=== PATIENT | male | born 1955 | race Caucasian/White ===

== ENCOUNTER 2024-03-17 12:39 | Outpatient (AMB) | payer MEDICARE, OTHER, SELFPAY ==
--- NOTE | 2024-03-17 12:47 | A.OFFVIS_ITS ---
Vital Signs 03/17/24 13:10 Height 6 in Weight 162 lb 9 oz BMI 3174.5 BP 114/70 Blood Pressure Location Rt brachial Position Sitting Intake Visit Reasons: ENP-Involuntary movements/swallowing gustavo Intake Note: Patient presents for involuntary movememnts Allergies metoclopramide [From Reglan] Allergy (Unknown, Verified 03/17/24 13:12) Unknown Medication List - Last Reconciled 03/17/24 by Gia Cullen MD calcitriol 0.25 mcg PO DAILY famotidine 40 mg PO DAILY nqcvhz-oubqcoej-tukrsvu 36,000-114,000- 180,000 unit (Creon) 1 cap PO BID potassium citrate ER 15 mEq PO BID tamsulosin 0.4 mg PO DAILY HPI Comments Details: 68y/o male comes for evaluation of abnormal involuntary movements in his tongue and mouth . His noticed it about 1 year ago. she heard him make like a puffing noise and moves his lips. He can suppress it when he is aware of it.The movements are more when he is focusing on an activity ( like changing a bulb) The movements does not bother him .His also has noticed occasional - jerky movements usually when he falls asleep- for many years. He has h/o GERD - chronic . He sees GI for it.He was recently evaluated for dysphagia and change in speech -He was given speech and swallowing exercises. He has h/o learning disability and dyslexia. He also has h/o occasional migraines -2-3 /year with aura. He was born with 1 functioning kidney.He needed help with speech when young . He graduated college. 10years ago - he had heat stroke ? and has not been able to tolerate heat. [facility] Medical History Hx of migraines Celiac disease Kidney stones GERD (gastroesophageal reflux disease) Heartburn Surgical History H/O knee surgery Family History Father Cancer Mother Type 2 diabetes mellitus Social History Alcohol intake: never Patient Tobacco Use Status: Never used Tobacco Physical Exam Vital Signs: Last Vital Signs BP 114/70 03/17/24 13:10 BMI result Body Mass Index 3174.5 Const General: cooperative, healthy appearing, comfortable, no acute distress and well developed Nutritional Appearance: average body habitus Orientation/consciousness: patient oriented x3 Eyes Pupils: Equal, round and reactive pupils present Neuro Other: no abnormal movements noticed today General: patient oriented x3, gait normal, tone normal, moves all extremities and no focal motor deficits Cranial nerves: Yes Facial sensation intact/muscles of mastication intact, Yes Equal, round and reactive pupils present, Yes Bilaterally intact EOM present, Yes Nystagmus not present, Yes Normal facial strength present, Yes Midline tongue present, Yes Symmetric palate elevation present and Yes Ability to bilaterally elevate shoulders present Cognition (Neuro): normal cognition Gait exam (Neuro): Normal gait present Motor exam (neuro): 5/5 motor strength present throughout, no tremor noted and Normal motor muscle tone present throughout Deep tendon reflexes (DTR's): Right triceps reflex intensity grade: 2+, Left triceps reflex intensity grade: 2+, Rt Biceps (C5, C6): 2+, Left biceps reflex intensity grade: 2+, Right brachioradialis reflex intensity grade: 2+, Left brachioradialis reflex intensity grade: 2+, Right patellar reflex intensity grade: 2+ and Left patellar reflex intensity grade: 2+ Coordination: [id number] test normal Assessment & Plan Assessment & Plan (1) Abnormal involuntary movements: Comment: likely motor TICS Code(s): R25.9 - Unspecified abnormal involuntary movements Category: Medical Plan The movements are mild and intermittent . I will evaluate him with EEG He is doing better since he switched to famotidine. Home sleep test to r/o sleep apnea. Orders: Orders EEG electroencephalogram Today R25.9 - Unspecified abnormal involuntary movements RT home sleep study Today G47.10 - Hypersomnia, unspecified, R06.83 - Snoring Coding Level of Care Code New Pt Level 4 (73593) Complex EM visit Add On G2211 Diagnoses Abnormal involuntary movements R25.9
[2024-03-17 13:10] VITALS: BP 114/70; BMI 3174.5
--- OUTSIDE RECORDS SUMMARY | 2024-03-17 13:37 | XMS_ITS | Continuity of Care Document ---
Author Organization [facility] Address [address] [place], [place] Phone [phone] Care Team Providers Care Weld Lay Out Worker Name Role Phone Rolando Reese MD Care Team Information Pump Oiler Unavailable ANABELLA CHAUHAN M.D. Care Team Information Rec eiver Unavailable Rolando Reese MD Primary Care Physician Unavail able Problems Active Problems Provider Date Hip DXA scan result osteopenic Anabella Chauhan M.D. Onset: 10/16/2023 Malaise and fatigue Anabella Chauhan M.D. Onse t: 10/16/2023 Osteoporosis Anabella Chauhan M.D. Onset: 1 Social History Type Date Description Comments Sex Unknown Allergies and adverse reactions Active Allergies Criticality Reaction Severity Comments Date Aspirin Unable to assess criticality 12/16/2016 Reglan Unable to assess criticality 12/16/2016 Medications Active Medications SIG Qnty Indications Ordering Provider Date Calcitriol0.25mcg Capsules Take 1 Capsule By Mouth Every Day 90caps Anabella Chauhan M.D. 05/19/2023 Flomax0.4mg Capsules Unknown Calcium Citrate 250MG 1/d @ supper-> bid(04/2020)->1/d( 05/2023)->625ctc1( 2023) Unknown Famotidine 40mg @pm Unknown 0 Vit B12 @1000/d(12/2022is h) Unknown Creon 36,000x2(double dose) Unknown History Medications Calcitriol0.5mcg Capsules 1 by mouth every day Unknown - 05/19/2023 Prilosec OTCTablets 1 tab by mouth ev dinora Unknown - 07/[id number] tapering off Un known - 07/07/2023
--- OUTSIDE RECORDS SUMMARY | 2024-03-17 13:37 | XMS_ITS | Continuity of Care Document ---
Author Organization [facility] Address [address] [place] [address] Phone Care Team Providers Care Regional Director Name Role Phone Bjorn Daniels MD Unavailable Unavailable Allergies, Adverse Reactions, Alerts Substance Reaction Status Criticality METOCLOPRAMIDE HCL Active No Inform ation aspirin scratchy throat Active No Informati on Medications Medication Instructions Dosage Effective Dates (start - stop) Status Comments ACIPHEX (unknown strength) Not Available - Active calcium 500 mg Tab 2 tablets once daily 9 - Active Vitamin D-3 400 unit Cap - Active calcitriol 0.25 mcg Cap take 1 capsule (0.25MCG) by Oral route every day 0.25 MCG - Active Flomax 0.4 mg 24 hr Cap take 1 capsule (0.4MG) by Oral route every day 1/2 hour following the same meal each day 0.4 MG - Active Procedures Procedure Date Office/Outpatient Visit, [...] Copied on Encounter Office/Outpa tient Visit, Est [facility] , [address] [place], [place], [facility], tel:[phone] [facility] No Information 201 0 Jeremiah Milan. [address], [id number] , [place]. tel:[phone] Referring Provider: Bjorn Carolina, [address] [place], [address] . tel:[phone] Office/Outpa tient Visit, Est [facility] , [address] [place], [place], [facility], tel:[phone] [place] [address] Brent knee pain (chief complaint) No Information 8201 0 Jeremiah Milan. [address] [place], [place], [id number] , [place]. tel:[phone] Referring Provider: Bjorn Carolina, [address] [place], [address] . tel:[phone] [facility] , [address] [place], [place], [facility], tel:[phone] [facility] Left wrist fracture (chief complaint) No Information 200 9 Darin Pitts. [address] [place], [place], [id number] , [place]. tel:[phone] Referring Provider: Bjorn Carolina, [address], [place], [address] . tel:[phone] Office/Outpa tient Visit, Est [facility] , [address], [place], [facility], tel:[phone] [facility] Left wrist fracture (chief complaint) FX of ulna, distal, alone Sep-1 1200 9 Gilmer Lau. [address] [place], [place], [address] [place] [address] , . tel: [phone] Referring Provider: Bjorn Carolina, [address] , [place], [address] . tel:[phone] [facility] , [address] [place], [place], [facility], tel:[phone] [facility] Left wrist fracture (chief complaint) Pain in knee joint Sep-0 3-200 9 Darin Pitts. [address] [place], [place], [address] [place] [address] , . tel: [phone] Referring Provider: Bjorn Carolina, [address] , [place], [address] . tel:[phone] Office/Outpa tient Visit, [facility] , [address], [place], [facility], tel:[phone] [facility] Left wrist fracture (chief complaint) FX of ulna, distal, alone Aug- 9 Gilmer Lau. [address] , [place], [place], [address] [place] [address] , . tel: [phone] Referring Provider: Bjorn Carolina, [address] , [place], [address] . tel:[phone] [facility] , [address] [place], [place], [facility], tel:[phone] [place] [address] No Information Oct- 1 9 Jeremiah Milan. [address] [place], [place], [address] [place] [address] , . tel: [phone] Referring Provider: Bjorn Carolina, [address], [place], [address] . tel:[phone] [facility] , [address] , [place], [facility], tel:[phone] [facility] Left wrist fracture (chief complaint) No Information 0-200 9 Webster PT Gisselle. [address] , [place], [place], [id number] , [place]. tel: [phone] Referring Provider: Bjorn Carolina, [address] , [place], [address] . tel:[phone] [facility] , [address], [place], [facility], tel:[phone] [facility] Left wrist fracture (chief complaint) No Information 9-200 9 Hari Mendez. [address] , [place], [place], [id number] , . tel: [phone] Referring Provider: Bjorn Carolina, [address] , [place], [address] . tel:[phone] Office/Outpa tient Visit, Est [facility] , [address] , [place], [facility], tel:[phone] [facility] Left wrist fracture (chief complaint) FX of ulna, distal, aloneFX of ulna, distal, alone 200 9 Gilmer Lau. [address] , [place], [place], [id number] , [place]. tel: [phone] [facility] , [address] , [place], [facility], tel:[phone] [facility] Left knee pain (chief complaint) Follow-up of other surgery 3200 9 Hari Mendez. [address] , [place], [place], [id number] , [place]. tel: [phone] Referring Provider: Bjorn Carolina, [address] , [place], [address] . tel:[phone] [facility] , [address], [place], [facility], tel:[phone] [facility] Left knee pain (chief complaint) Stiffness in knee jointFollow-up of other surgery 9 Webster PT Gisselle. [address], [place], [place], [id number] , . tel: [phone] Referring Provider: Bjorn Carolina, [address], [place], [address] . tel:[phone] [facility] , [address], [place], [facility], tel:[phone] [facility] Left knee pain (chief complaint) Muscle weakness, generalizedStiffne ss in knee jointFollow-up of other surgery 9 Webster PT Gisselle. [address], [place], [place], [address] , . tel: [phone] Referring Provider: Bjorn Carolina, [address], [place], [place], [address] [place] [address] . tel:[phone] [facility] , [address], [place], [facility], tel:[phone] [place] [address] No Information 9 Jeremiah Milan. [address], [place], [place], [id number] , . tel: [phone] Referring Provider: Bjorn Carolina, [address], [place], [address] . tel:[phone] [facility] , [address], [place], [facility], tel:[phone] [facility] No Information 9 Jeremiah Milan. [address], [place], [place], [address] , . tel: [phone] Referring Provider: Bjorn Carolina, [address], [place], [address] . tel:[phone] [facility] , [address], [place], [facility], tel:[phone] [facility] No Information 9 Jeremiah Milan. [address], [place], [place], [id number] , [place]. tel: [phone] Referring Provider: Bjorn Carolina, [address], [place], [address] . tel:[phone] Pre-op Exam [facility] , [address], [place], [facility], [place] tel:[phone] [place] [address] No Information 9 Jeremiah Milan. [address], [place], [place], [id number] , [place]. tel: [phone] Referring Provider: Bjorn Carolina, [address], [place], [address] . tel:[phone] [facility] , [address], [place], [facility], tel:[phone] [place] [address] Medial meniscal tear, posterior horn, degenerative, chronic, kneeChondral lesion, osteolysis 9 Jeremiah Milan. [address], [place], [place], [id number] , [place]. tel: [phone] Referring Provider: Bjorn Carolina, [address], [place], [address] . tel:[phone] [facility] , [address], [place], [facility], tel:[phone] [place] [address] No Information 9 Jeremiah Milan. [address], [place], [place], [id number] , [place]. tel: [phone] Referring Provider: Bjorn Carolina, [address], [place], [address] . tel:[phone] Office/Outpa tient Visit, Est [facility] , [address], [place], [facility], [place] tel:[phone] [place] [address] Left knee pain (chief complaint) No Information 9 Jeremiah Milan. [address], [place], [place], [id number] , . tel:[phone] [facility], [address], [place], [address], [place] tel:[phone] [facility] No Information 0-200 9 Jeremiah Milan. [address], [place], [place], [id number] , . tel: [phone] Family History Family Member Type Diagnosis Age At Onset Problem (finding) Family history of Anest hetic problems Payers Payer name Insurance type Covered republican ID Authoriza tion(s) [employer] E[employer] Open Option [place] [id number] Social History Type Description Quantity Date Captured [...]
--- OUTSIDE RECORDS SUMMARY | 2024-03-17 13:37 | XMS_ITS | Data Portability ---
Author Organization [place] [facility] Address [address] [address] Care Team Providers Care Opener Verifier [employer] Name Role Phone CARMEN MONTALVO Primary Care Provider Assessment Encounter Date Assessment Date Assessment LastModified by Organization Details LastModified Time 09/24/2023 09/24/2023 Fiberoptic laryngoscopy was completed today. He does have a moderate amount of clear thin mucus, but I see no pooling or overt aspiration. His vocal cords are mobile bilaterally, and the prior erythema has resolved. His vocal cords are thin, more so on the left than the right, causing a small gap with phonation. We discussed the wet quality to his voice is related to the mucus and his dysphagia issues. 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 He will discuss this with his speech pathologist. I will order the updated barium swallow study. If his voice does not improve we can consider referral for stroboscopy. [email or web address] Not available 09/24/2023 12:22:26 Plan of Treatment Reminders Order Date Submit Date Provider Last Modified By Organization Details Last Modified Time Details Appointments None recorded. Lab None recorded. Referral None recorded. Procedures None recorded. Surgeries None recorded. Imaging [place], modified barium swallow study 2023 024 [email or web address], [address] [place], [address], 16:49:09 Medication Orders None recorded. Patient TargetsNo targets recorded. Patient InstructionsNo instructions recorded. Reason for Referral None Reported. Problems Name Problem SNOMED Code Status Onset Date Resolution Date Notes Provider Name and Address Organization Details Recorded Time Gastroeso phageal reflux disease without esophagit is 303953365 Active 2017 Gastro-eso phageal reflux disease without esophagiti s; Note: Date Diagnosed: 12/23/2017 9:56 AM (K21.9) Not Available [facility] 4 03:33:08 Dysphonia 91415120 Active 2017 Other voice and resonance disorders; Note: Date Diagnosed: 12/23/2017 9:56 AM (R49.8) Not Available [facility] 4 03:33:08 Finding of resonance of voice 661398382 Active 2017 Other voice and resonance disorders; Note: Date Diagnosed: 12/23/2017 9:56 AM (R49.8) Not Available [facility] 4 03:33:08 Dysphagia 28709839 Active 2023 SUKHDEEP HAMLIN PA-C [address] [place] [address],[place] [address], [place], [address] , [facility] - [facility] 4 12:19:47 Problem Notes None recorded. Procedures Surgical History Date Name Laterality Status Provider Name and Address Organization Details Recorded Time 09/24/19 24 Fiberoptic Laryngoscopy (Comprehensive) completed SUKHDEEP HAMLIN PA-C [address] [place] [address],[place] [address], [place], [address], [facility] 09/24/2023 12:19:31 Imaging Results None recorded. Procedure Notes None recorded. Medical Equipment None Reported. Allergies Allergen ID Allergen Name Allergen Category Reaction Reaction Severity Criticality Documentation Date Start Date Code Code System Note Provider Name and Address Organization Details Recorded Time 627501 aspirin medicatio n Not available Not available Not available 09/24/2023 1191 RxNorm Judi mcgraw [place] - [facility] 4 11:05:42 380949 Reglan medicatio n Not available Not available Not available 09/24/2023 9230 RxNorm Judi Suraj mcgraw [place] [facility] 4 11:05:50 Medications Name Sig Start Date Stop Date Status Note LastModified by Organization Details LastModified Time phenazopy ridine 200 mg tablet TAKE 1 TABLET BY MOUTH 3 TIMES A DAY FOR 7 DAYS 09/23 completed Not Available Not Available Not Available famotidin e 40 mg tablet TAKE 1 TABLET BY MOUTH EVERY DAY AT BEDTIME FOR 30 DAYS active Not Available Not Available No t Available sulfameth oxazole 800 mg-trimet hoprim 160 mg tablet TAKE 1 TABLET BY MOUTH TWICE A DAY FOR 3 DAYS 09/23 completed Not Available Not Available Not Available tamsulosi n 0.4 mg capsule TAKE 1 CAPSULE BY MOUTH EVERY DAY active Not Available Not Available No t Available calcitrio l 0.5 mcg capsule TAKE 1 CAPSULE BY MOUTH EVERY DAY 09/23 completed Not Available Not Available Not Available betametha sone dipropion ate 0.05 % topical cream PLEASE SEE ATTACHED FOR DETAILED DIRECTIO NS 09/23 completed Not Available Not Available Not Available omeprazol e 20 mg capsule,d elayed release TAKE 1 CAPSULE BY MOUTH TWICE A DAY 09/23 completed Not Available Not Available Not Available calcitrio l 0.25 mcg capsule TAKE 1 CAPSULE BY MOUTH EVERY DAY active Not Available Not Available No t Available Calcium-5 00 500 mg (as calcium carbonate 1,250 mg) chewable tablet 2017 active Medicati on ID: [id number] B rand Name: Calcium 500 Send Method: E-Prescr ibed Sub s Allowed: subs OK Medic ationGen ericName : Calcium 500 Not Available Not Available Not Available Creon 36,000 unit-114, 000 unit-180, 000 unit capsule,d elayed release TAKE 2 CAPSULES WITH MEALS AND 1 WITH SNACKS ORALLY THREE - FIVE TIMES A DAY 30 DAYS active Not Available Not Available No t Available Vitals Date Recorded Body height Body mass index (BMI) Body weight Provider Name and Address Organization Details Last Updated DateTime 09/24/2023 182.88 cm 21 kg/m2 00092.82 g Judi Harry [facility] 09/24/2023 11:05:33 Social History None recorded. Functional Status None recorded. Mental Status None recorded. Family History Nothing Reported. Medical History No medical history recorded. Past Encounters Encounter ID Performer Location Encounter Start Date Encounter Closed Date Diagnosis/Indication Diagnosis SNOMED-CT Code Diagnosis ICD10 Code [id number] MARYLU CHOI MD [facility] on [address] [place] [address] 09/24/2023 10:48:51 09/25/2023 16:49:09 Dysphonia 54422153 R49.8 Gastroesop hageal reflux disease without esophagitis 023866615 K21.9 Dysphagia 85728152 R13.1 0 Health Concerns Section Related Observation LastModified by Organization Detai ls LastModified Time None Recorded Concern Status LastModified by Organization Details LastModified Time None Recorded Advance Directives Directive None Recorded Payers Encounter Date Sequence Insurance Name Policy Number Policy Ferreira Covered Member ID Ferreira Member ID Guarantor Name 09/24/2023 2 [facility] [id number] Vladimir Flores [id number] Vladimir Flores 09/24/2023 1 MEDICARE B-HI: [facility] [employer] Vladimir Flores III [id number] Vladimir Flores Notes Date Note Type Note Provider Name and Address Organization Details Recorded Time 09/24/2023 text/html 67 year old male with a history of dysphagia, voice changes and GERD. Here today with his , Annemarie, for follow up.He was seen in April for dysphagia, modified barium swallow was ordered which showed aspiration with thin liquids and residual in the vallecula. 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 He has been undergoing speech therapy and feels he is improving. His swallow is not as effortful or loud and he has not been having choking episodes. He did speak to 's team about the UES dysfunction and the CP bar, which were felt to be a result of his prior Lenin procedure and required no further intervention. For his reflux, he is now on Pepcid only at bedtime and this is working well for him. His speech pathologist wanted him to return for a laryngeal exam. His swallow is improving, but he still has voice changes. She would also like to do another modified barium swallow. MARYLU CHOI MD [address] [place] [address], [place], [address], [facility] - [facility] 09/25/2023 12:48:46
== END 2024-03-17 13:54 | disposition home or self-care (01) ==
PROVIDERS: Visit Provider Psychiatry & Neurology Neurology
DX: R25.9 Unspecified abnormal involuntary movements (principal)
CPT/HCPCS: 99204; G2211

== ENCOUNTER → 2024-03-17 12:39 | Outpatient (BNVA) | payer MEDICARE, OTHER, SELFPAY | PROVIDERS: Visit Provider Psychiatry & Neurology Neurology | DX: R25.9 Unspecified abnormal involuntary movements (principal); G47.10 Hypersomnia, unspecified; R06.83 Snoring | CPT/HCPCS: 99202 ==

== ENCOUNTER → 2024-04-25 13:59 | Outpatient (REF) | payer MEDICARE, OTHER, SELFPAY ==
--- OUTSIDE RECORDS SUMMARY | 2024-04-25 15:08 | XMS_ITS | Encounter Summary ---
Author Organization [facility], Address [address] [place] [address] Phone Care Team Providers Care Bearing Machine Operator Name Role Phone Mary Ann Marshall MD Primary Care Provider [phone] Encounter Details Date Type Department Care Team (Late st Contact Info) Description 11/10/2023 Documentation Only [facility] [address] [place] [address] Alice Andujar [address] [place] [phone] Social History Tobacco Use Types Packs/Day Years Used Date Smoking Tobacco: Never Assessed Sex and Gender Information Value Date Recorded Sex Assigned at Not on file Legal Sex Male 8:30 AM EDT Gender Identity Not on file Sexual Orientation Not on file documented as of this encounter Plan of Treatment Upcoming Encounters Date Type Department Care Team (Late st Contact Info) Description 08/25/2024 10:30 AM EDT Office Visit [facility] [address] [place] [phone] Ermias Shine MD [address] [place] [address] [place] [address] documented as of this encounter Visit Diagnoses Not on filedocumented in this encounter Care Teams Bearing Machine Operator Relationship Specialty Start Date End Date Mary Ann Mrashall MD [address] [place] [address], [address] [place] [address] PCP - General Internal Medicine 08/26/23 documented as of this encounter
--- OUTSIDE RECORDS SUMMARY | 2024-04-25 15:08 | XMS_ITS | Encounter Summary ---
Author Organization [facility], Address [address] [place] [address] Phone Care Team Providers Care Cnc Maintenance Mechanic Name Role Phone Mary Ann Marshall MD Primary Care Provider [phone] Encounter Details Date Type Department Care Team (Late st Contact Info) Description 08/26/2023 Documentation Only [facility] [address] [place] [address] [place], [place] [address] [place] [phone] Social History Tobacco Use Types Packs/Day Years [...] Visit [facility] [address] [place] [phone] Ermias Shine MD [address] [place] [address] [place] [address] documented as of this encounter Visit Diagnoses Not on filedocumented in this encounter Care Teams Cnc Maintenance Mechanic Relationship Specialty Start Date End Date Mary Ann Marshall MD [address] [place], [place] [address], [place] [address] PCP - General Internal Medicine 08/26/23 documented as of this encounter
--- OUTSIDE RECORDS SUMMARY | 2024-04-25 15:08 | XMS_ITS | Clinical Summary ---
Author Organization [facility] Address [address] [place] [address] Phone Care Team Providers Care Glass Glazier Name Role Phone Mary Ann Marshall MD Primary Care Provider [phone] Allergies Active Allergy Reactions Criticality Noted Date Comments Aspirin 11/12/2022 Other Reaction(s): non buffered Gluten Meal 03/31/2017 Metoclopramide 03/31/2017 Medications tamsulosin (FLOMAX) 0.4 MG 24 hr capsule Take 0.4 mg by mouth 1 (one) time each day Active famotidine (PEPCID) 40 MG tablet Take 40 mg by mouth 1 (one) time each day Active calcitriol (ROCALTROL) 0.25 MCG capsule Take 0.25 mcg by mouth 1 (one) time each day Active Active Problems Problem Noted Date Diagnosed Date Renal stone 08/27/2023 Vitamin D deficiency 08/27/2023 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 Encounters Date Type Department Care Team Description 02/24/2024 4:15 PM EST Office Visit [facility] [place], - [address] [place] [address] Ermias Shine MD Renal stone (Primary Dx) 02/23/2024 Documentation Only [facility] [address] [place] [address] Patricia Forbes 02/02/2024 Documentation Only [facility] [place], [address] [place] [address] Patricia Forbes from Last 3 Months Immunizations Name Administration Dates Next Due Influenza, Quadrivalent, Pre servative Free 01/14/2020,12/23/2018,12/16/2017,03/31 Influenza, Quadrivalent, Wit h Preservative 02/17/2014 Influenza, Unspecified 01/09/2023,2021,12/18/2020,03/27,03/15/2013 Pfizer SARS-COV-2 01/25/2021,07/07/2020,06/17/19 21 Pneumococcal Conjugate 13-Valent 12/18/2020 Pneumococcal Polysaccharide 11/12/2022 Respiratory Syncytial Virus (Rsv), Unspecified 12/14/2022 SARS-CoV-2, Unspecified 08/01/2022 Shingrix 08/30/2019,05/02/2019 Tdap 03/31/2017 Social History Tobacco Use Types Packs/Day Years Used Date Smoking Tobacco: Never Assessed Sex and Gender Information Value Date Recorded Sex Assigned at Not on file Legal Sex Male 8:30 AM EDT Gender Identity Not on file Sexual Orientation Not on file Plan of Treatment Upcoming Encounters Date Type Department Care Team (Late st Contact Info) Description 08/25/2024 10:30 AM EDT Office Visit [facility] [place], [address] [place] [address] Ermias Shine MD [address] [place] [address] [place] [address] Health Maintenance Due Date Last Done Comments Colorectal Cancer Screening: Annual FOBT 12/01/2004 Colorectal Cancer Screening: Colonoscopy 12/01/2004 Colorectal Cancer Screening: Sigmoidoscopy 12/01/2004 Influenza Vaccine (#1) 2023 3, 12/05/2021, 12/18/2020, Additional history exists Pneumococcal Vaccine: 65+ Years Completed 11/12/2022, 12/18/2020 Hepatitis B Vaccine Aged Out No longe r eligible based on patient's age to complete this topic Insurance MEDICARE [facility] Care Teams Glass Glazier Relationship Specialty Start Date End Date Mary nAn Marshall MD [address] [place] [address], [address] [place] [address] PCP - General Internal Medicine 08/26/23
--- OUTSIDE RECORDS SUMMARY | 2024-04-25 15:08 | XMS_ITS | Continuity of Care Document ---
Author Organization [facility] Address [address] [place] [address] Phone Care Team Providers Care Paving Supervisor Name Role Phone Bjorn Daniels MD Unavailable [...] Copied on Encounter Office/Outpa tient Visit, Est [facility] , [address] [place], [place], [facility], tel:[phone] [facility] No Information 201 0 Jeremiah Milan. [address], [id number] , [place]. tel:[phone] Referring Provider: Bjorn Carolina, [address] [place], [address] . tel:[phone] Office/Outpa tient Visit, Est [facility] , [address] [place], [place], [facility], tel:[phone] [place] [address] Brent knee pain (chief complaint) No Information 8201 0 Jeremiah Milan. [address] [place], [place], [id number] , [place]. tel:[phone] Referring Provider: Bjorn Carolina, [address] [place], [address] . tel:[phone] [facility] , [address] [place], [facility], tel:[phone] [facility] Left wrist fracture (chief complaint) No Information 200 9 Darin Pitts. [address] [place], [place], [id number] , [place]. tel:[phone] Referring Provider: Bjorn Carolina, [address], [place], [address] . tel:[phone] Office/Outpa tient Visit, Est [facility] , [address], [place], [place], [facility], tel:[phone] [facility] Left wrist fracture (chief complaint) FX of ulna, distal, alone Sep-1 1200 9 Gilmer Lau. [address] [place], [place], [address] [place] [address] , . tel: [phone] Referring Provider: Bjorn Carolina, [address] , [place], [address] . tel:[phone] [facility] , [address] [place], [facility], tel:[phone] [facility] Left wrist fracture (chief complaint) Pain in knee joint Sep-0 3-200 9 Darin Pitts. [address] [place], [place], [address] [place] [address] , . tel: [phone] Referring Provider: Bjorn Carolina, [address] , [place], [address] . tel:[phone] Office/Outpa tient Visit, [facility] , [address], [place], [facility], tel:[phone] [facility] Left wrist fracture (chief complaint) FX of ulna, distal, alone Aug- 9 Gilmer Lau. [address] , [place], [address] [place] [address] , . tel: [phone] Referring Provider: Bjorn Carolina, [address] , [place], [address] . tel:[phone] [facility] , [address] [place], [facility], tel:[phone] [place] [address] No Information Oct- 1 9 Jeremiah Milan. [address] [place], [place], [address] [place] [address] , . tel: [phone] Referring Provider: Bjorn Carolina, [address], [place], [address] . tel:[phone] [facility] , [address] , [place], [facility], tel:[phone] [facility] Left wrist fracture (chief complaint) No Information 0-200 9 Webster PT Gisselle. [address] , [place], [place], [id number] , [place]. tel: [phone] Referring Provider: Bjorn Carolina, [address] , [place], [address] . tel:[phone] [facility] , [address], [place], [facility], tel:[phone] [facility] Left wrist fracture (chief complaint) No Information 9-200 9 Hari Mendez. [address] , [place], [place], [id number] , . tel: [phone] Referring Provider: Bjorn Carolina, [address] , [place], [address] . tel:[phone] Office/Outpa tient Visit, Est [facility] , [address] , [place], [facility], tel:[phone] [facility] Left wrist fracture (chief complaint) FX of ulna, distal, aloneFX of ulna, distal, alone 200 9 Gilmer Lau. [address] , [place], [place], [id number] , [place]. tel: [phone] [facility] , [address] , [place], [facility], tel:[phone] [facility] Left knee pain (chief complaint) Follow-up of other surgery 3200 9 Hari Mendez. [address] , [place], [place], [id number] , [place]. tel: [phone] Referring Provider: Bjorn Carolina, [address] , [place], [address] . tel:[phone] [facility] , [address], [place], [facility], tel:[phone] [facility] Left knee pain (chief complaint) Stiffness in knee jointFollow-up of other surgery 9 Webster PT Gisselle. [address], [place], [place], [id number] , . tel: [phone] Referring Provider: Bjorn Carolina, [address], [place], [address] . tel:[phone] [facility] , [address], [place], [facility], tel:[phone] [facility] Left knee pain (chief complaint) Muscle weakness, generalizedStiffne ss in knee jointFollow-up of other surgery 9 Webster PT Gisselle. [address], [place], [place], [address] , . tel: [phone] Referring Provider: Bjorn Carolina, [address], [place], [address] [place] [address] . tel:[phone] [facility] , [address], [place], [facility], tel:[phone] [place] [address] No Information 9 Jeremiah Milan. [address], [place], [place], [id number] , . tel: [phone] Referring Provider: Bjorn Carolina, [address], [place], [address] . tel:[phone] [facility] , [address], [place], [facility], tel:[phone] [facility] No Information 9 Jeremiah Milan. [address], [place], [place], [id number] , . tel: [phone] Referring Provider: Bjorn Carolina, [address], [place], [address] . tel:[phone] [facility] , [address], [place], [facility], tel:[phone] [facility] No Information 9 Jeremiah Milan. [address], [place], [place], [id number] , [place]. tel: [phone] Referring Provider: Bjorn Carolina, [address], [place], [address] . tel:[phone] Pre-op Exam [facility] , [address], [place], [facility], [place] tel:[phone] [place] [address] No Information 9 Jeremiah Milan. [address], [place], [id number] , [place]. tel: [phone] Referring Provider: Bjorn Carolina, [address], [place], [address] . tel:[phone] [facility] , [address], [place], [facility], tel:[phone] [place] [address] Medial meniscal tear, posterior horn, degenerative, chronic, kneeChondral lesion, osteolysis 9 Jeremiah Milan. [address], [place], [place], [address] , [place]. tel: [phone] Referring Provider: Bjorn Carolina, [address], [place], [address] . tel:[phone] [facility] , [address], [place], [facility], tel:[phone] [place] [address] No Information 9 Jeremiah Milan. [address], [place], [place], [address] , [place]. tel: [phone] Referring Provider: Bjorn Carolina, [address], [place], [address] . tel:[phone] Office/Outpa tient Visit, Est [facility] , [address], [place], [facility], [place] tel:[phone] [place] [address] Left knee pain (chief complaint) No Information 9 Jeremiah Milan. [address], [place], [place], [address] , . tel:[phone] [facility], [address], [place], [address], [place] tel:[phone] [facility] No Information 0-200 9 Jeremiah Milan. [address], [place], [place], [id number] , . tel: [phone] Family History Family Member Type Diagnosis Age At Onset Problem (finding) Family history of Anest hetic problems Payers Payer name Insurance type Covered green party ID Authoriza tion(s) [place] EPO Open Option [place] [id number] Social History Type Description Quantity Date Captured [...]
--- OUTSIDE RECORDS SUMMARY | 2024-04-25 15:08 | XMS_ITS | Data Portability ---
Author Organization [place] - [facility] Address [address] [address] Care Team Providers Care Drywall Finisher Foreman Name Role Phone CARMEN MONTALVO Primary Care [...] modified barium swallow study 2023 024 darrellettRobby [facility], [address] [place], [address], 16:49:09 Medication Orders None recorded. Patient TargetsNo targets recorded. Patient InstructionsNo instructions recorded. Reason for Referral None Reported. Problems Name Problem SNOMED Code Status Onset Date Resolution Date Notes Provider Name and Address Organization Details Recorded Time Gastroeso phageal reflux disease without esophagit is 745688285 Active 2017 Gastro-eso phageal reflux disease without esophagiti s; Note: Date Diagnosed: 12/23/2017 9:56 AM (K21.9) Not Available Count includes the [facility] 4 03:33:08 Dysphonia 94636315 Active 2017 Other voice and resonance disorders; Note: Date Diagnosed: 12/23/2017 9:56 AM (R49.8) Not Available Count includes the [facility] 4 03:33:08 Finding of resonance of voice 032126440 Active 2017 Other voice and resonance disorders; Note: Date Diagnosed: 12/23/2017 9:56 AM (R49.8) Not Available Count includes the [facility] 4 03:33:08 Dysphagia 94562107 Active 2023 SUKHDEEP HAMLIN PA-C [address] [place] [address],[place] [address], [place], [address] , [facility] - [facility] 4 12:19:47 Problem Notes None recorded. Procedures Surgical History Date Name Laterality Status Provider Name and Address Organization Details Recorded Time 09/24/19 24 Fiberoptic Laryngoscopy (Comprehensive) completed SUKHDEEP HAMLIN PA-C [address] [place] [address],[place] [address], [place], [address], [facility] 09/24/2023 12:19:31 Imaging Results None recorded. Procedure Notes None recorded. Medical Equipment None Reported. Allergies Allergen ID Allergen Name Allergen Category Reaction Reaction Severity Criticality Documentation Date Start Date Code Code System Note Provider Name and Address Organization Details Recorded Time 612396 aspirin medicatio n Not available Not available Not available 09/24/2023 1191 RxNorm Judi mcgraw [place] - [facility] 4 11:05:42 392470 Reglan medicatio n Not available Not available Not available 09/24/2023 9230 RxNorm Judi Suraj mcgraw [place] [facility] 4 11:05:50 Medications Name Sig Start Date [...] chewable tablet 2017 active Medicati on ID: [id number] B rand Name: Calcium 500 Send Method: [...] Updated DateTime 09/24/2023 182.88 cm 21 kg/m2 73907.82 g Judi Harry [facility] 09/24/2023 11:05:33 Social History None recorded. Functional Status None recorded. Mental Status None recorded. Family History Nothing Reported. Medical History No medical history recorded. Past Encounters Encounter ID Performer Location Encounter Start Date Encounter Closed Date Diagnosis/Indication Diagnosis SNOMED-CT Code Diagnosis ICD10 Code Diagnosis Note [id number] MARYLU CHOI MD [facility] on [address] [facility] SHAE ARELLANO [address] 09/24/2023 10:48:51 09/25/2023 16:49:09 Dysphonia 43852331 R49.8 Gastroesop hageal reflux disease without esophagitis 550219734 K21.9 Dysphagia 02460178 R13.1 0 Health Concerns Section Related Observation LastModified by Organization Detai ls LastModified Time None Recorded Concern Status LastModified by Organization Details LastModified Time None Recorded Advance Directives Directive None Recorded Payers Encounter Date Sequence Insurance Name Policy Number Policy Ferreira Covered Member ID Ferreira Member ID Guarantor Name 09/24/2023 2 [facility] IN[facility]MN[facility] [id number] Vladimir Flores [id number] Vladimir Flores 09/24/2023 1 MEDICARE B-[place]: [facility] [employer] Vladimir Flores III [id number] Vladimir Flores Notes Date Note Type [...] another modified barium swallow. MARYLU CHOI MD [address] [place] [address], [place], [address], [facility] - [facility] 09/25/2023 12:48:46
--- OUTSIDE RECORDS SUMMARY | 2024-04-25 15:08 | XMS_ITS | Encounter Summary ---
Author Organization [facility] [place], Address [address] [place] [address] Phone Care Team Providers Care Sales Attendant Building Materials Name Role Phone Mary Ann Marshall MD Primary Care Provider +1- [phone] Encounter Details Date Type Department Care Team (Late st Contact Info) Description 09/24/2023 Documentation Only [facility] [address] [place] [address] Patricia Forbes [address] [place] [address] [phone] Social History Tobacco Use Types Packs/Day Years [...] Visit [facility] [place] [address] Neel EDWARD [address] [place] [phone] Ermias Shine MD [address] [place] [address] [place] [address] documented as of this encounter Visit Diagnoses Not on filedocumented in this encounter Care Teams Sales Attendant Building Materials Relationship Specialty Start Date End Date Mary Ann Marshall MD [address] [place] [address], [address] [place] [address] PCP - General Internal Medicine 08/26/23 documented as of this encounter
--- OUTSIDE RECORDS SUMMARY | 2024-04-25 15:08 | XMS_ITS | Encounter Summary ---
Author Organization [facility] [place], Address [address] [place] [address] Phone Care Team Providers Care Fiber Product Cutting Machine Operator Name Role Phone Mary Ann Marshall MD Primary Care Provider +1- [phone] Encounter Details Date Type Department Care Team (Late st Contact Info) Description 02/23/2024 Documentation Only [facility] [address] [place] [address] Patricia Forbes [address] [place] [address] [phone] Social History Tobacco Use Types Packs/Day Years [...] Visit [facility] [address] [address] Neel EDWARD [address] [place] [phone] Ermias Shine MD [address] [place] [address] [place] [address] documented as of this encounter Visit Diagnoses Not on filedocumented in this encounter Care Teams Fiber Product Cutting Machine Operator Relationship Specialty Start Date End Date Mary Ann Marshall MD [address] [place] [address], [address] [place] [address] PCP - General Internal Medicine 08/26/23 documented as of this encounter
--- OUTSIDE RECORDS SUMMARY | 2024-04-25 15:08 | XMS_ITS | Encounter Summary ---
Author Organization [facility] [place], Address [address] [place] [address] Phone Care Team Providers Care Transportation Security Screener Name Role Phone Mary Ann Marshall MD Primary Care Provider +1- [phone] Encounter Details Date Type Department Care Team (Late st Contact Info) Description 09/22/2023 Documentation Only [facility] [address] [place] [address] Patricia Forbes [address] [place] [phone] Social History Tobacco Use Types Packs/Day Years [...] Visit [facility] [place] [address] Neel EDWARD [address] [place] [phone] Ermias Shine MD [address] [place] [address] [place] [address] documented as of this encounter Visit Diagnoses Not on filedocumented in this encounter Care Teams Transportation Security Screener Relationship Specialty Start Date End Date Mary Ann Marshall MD [address] [place] [address], [address] [place] [address] PCP - General Internal Medicine 08/26/23 documented as of this encounter
--- OUTSIDE RECORDS SUMMARY | 2024-04-25 15:08 | XMS_ITS | Encounter Summary ---
Author Organization [facility] [place], Address [address] [place] [address] Phone Care Team Providers Care Sonar Watchstander Name Role Phone Mary Ann Marshall MD Primary Care Provider +1- [phone] Encounter Details Date Type Department Care Team (Late st Contact Info) Description 02/02/2024 Documentation Only [facility] [address] [place] [address] Patricia Forbes [address] [place] [address] [phone] Social History Tobacco Use Types Packs/Day Years [...] Visit [facility] [address] [place] [address] Ermias Shine MD [address] [facility] [place] [phone] documented as of this encounter Visit Diagnoses Not on filedocumented in this encounter Care Teams Sonar Watchstander Relationship Specialty Start Date End Date Mary Ann Marshall MD [address] [place] [address], [address] [place] [address] PCP - General Internal Medicine 08/26/23 documented as of this encounter
--- OUTSIDE RECORDS SUMMARY | 2024-04-25 15:08 | XMS_ITS | Encounter Summary ---
Author Organization [facility] [place], Address [address] [place] [address] Phone Care Team Providers Care Engineering Team Supervisor Name Role Phone Mary Ann Marshall MD Primary Care Provider +1- [phone] Encounter Details Date Type Department Care Team (Late st Contact Info) Description 09/22/2023 Documentation Only [facility] [address] [place] [address] Patricia Forbes [address] [place] [phone] Social History Tobacco Use Types Packs/Day [...] Visit [facility] [place] [address] Neel EDWARD [address] [place] [phone] Ermias Shine MD [address] [place] [address] [place] [address] documented as of this encounter Visit Diagnoses Not on filedocumented in this encounter Care Teams Engineering Team Supervisor Relationship Specialty Start Date End Date Mary Ann Marshall MD [address] [place] [address], 2[address] [place] [address] PCP - General Internal Medicine 08/26/23 documented as of this encounter
--- OUTSIDE RECORDS SUMMARY | 2024-04-25 15:08 | XMS_ITS | Encounter Summary ---
Author Organization [facility] [place], Address [address] [place] [address] Phone Care Team Providers Care Feeder Tender Name Role Phone Mary Ann Marshall MD Primary Care Provider +1- [phone] Encounter Details Date Type Department Care Team (Late st Contact Info) Description 09/15/2023 Documentation Only [facility] [address] [place] [address] Patricia Forbes [address] [place] [phone] Social History Tobacco Use Types Packs/Day [...] Of [facility] [address] Neel EDWARD [address] [place] [phone] Ermias Shine MD [address] [place] [address] [place] [address] documented as of this encounter Visit Diagnoses Not on filedocumented in this encounter Care Teams Feeder Tender Relationship Specialty Start Date End Date Mary Ann Marshall MD [address] [place] [address], [address] [place] [address] PCP - General Internal Medicine 08/26/23 documented as of this encounter
--- OUTSIDE RECORDS SUMMARY | 2024-04-25 15:08 | XMS_ITS | Encounter Summary ---
Author Organization [facility] [place], Address [address] [place] [address] Phone Care Team Providers Care Retort Engineer Name Role Phone Mary Ann Marshall MD Primary Care Provider +1- [phone] Encounter Details Date Type Department Care Team (Late st Contact Info) Description 09/11/2023 Documentation Only [facility] [address] [place] [address] [place], [place] [address] [place] [phone] Social History Tobacco Use Types Packs/Day Years [...] Visit [facility] [place] [address] Neel EDWARD [address] [place] [phone] Ermias Shine MD [address] [place] [address] [place] [address] documented as of this encounter Visit Diagnoses Not on filedocumented in this encounter Care Teams Retort Engineer Relationship Specialty Start Date End Date Mary Ann Marshall MD [address] [place], [place] [address], [place] [address] PCP - General Internal Medicine 08/26/23 documented as of this encounter
== END ==
LOC: HO.SL 13:59
PROVIDERS: PCP Internal Medicine; Visit Provider Psychiatry & Neurology Neurology
DX: G47.10 Hypersomnia, unspecified (principal); R06.83 Snoring
CPT/HCPCS: 95806

== ENCOUNTER → 2024-04-25 14:13 | Outpatient (BNV) | payer MEDICARE, OTHER, SELFPAY | PROVIDERS: PCP Internal Medicine; Visit Provider Psychiatry & Neurology Neurology | DX: G47.10 Hypersomnia, unspecified (principal); R06.83 Snoring | CPT/HCPCS: 95806 ==

== ENCOUNTER 2024-08-01 11:15 | Outpatient (AMB) | payer MEDICARE, OTHER, SELFPAY ==
--- NOTE | 2024-08-01 11:21 | MHC.OFFVIS ---
Vital Signs 08/01/24 11:34 Height 6 ft Weight 162 lb 4 oz BMI 22.0 Pulse 59 Pulse Source Pulse Oximeter Pulse Oximetry (%) 98 Oxygen Delivery Method Room Air Intake Visit Reasons: f/u appt Intake Note: Patient presents follow up ABN movements. HST done 04/25 in chart(AHI-9, CULLEN 91% follow up for Management options). Also looking for EEG results. Accompanied by: Spouse Allergies metoclopramide [From Reglan] Allergy (Unknown, Verified 08/01/24 11:44) Unknown HPI Comments Details: 68y/o male comes for evaluation of abnormal involuntary movements in his tongue and mouth. HST c/w mild latonya AHI is 9 and oxygen cullen to 91%, will start him on cpap therapy at 5-17eoV68. His Annemarie helps with history today. Patient states he was started on reglan after his Lenin fundoplication in 1998, and notices his improvement in oral tics once ompeprazole was discontinued, now he is taking famotidine and his acid reflux symptoms are managed well. He sees GI for chronic Gerd. He was recently evaluated for dysphagia and change in speech, so he started speech and swallowing exercises at therapy. His mother had dementia and he is concerned about his own memory though it is stable. He was born with one functioning kidney and has dyslexia, needed help with speech when he was young and was on medication for ADHD. He graduated college. 10 years ago he had a heat stroke and has not been able to tolerate heat ever since. He denies freezing of gate, tremors, shuffling of feet, dropping food, or difficulty drinking his coffee in a cup or holding a spoon, he is independent in all his ADLs and lives a very active lifestyle, walking for 2 miles daily. He notices he sleep on his back and snores alot more, his will nudge him to stop. He is more fatigued and dozes off for 20min daily after dinner or after lunch, then sleeps in until 9am now that he is retired. He usually goes to bed at 11pm and has 2 bathroom breaks through the night. His noticed it about 1 year ago, she heard him make like a puffing noise and he moves his lips. He can suppress it when he is aware of it. The movements are more when he is focusing on an activity (like changing a bulb). The movements are not bothersome to him. His also has noticed occasional jerky movements usually when he falls asleep- for many years. He also has h/o occasional migraines -2-3 /year with aura. [facility] Medical History Abnormal involuntary movements Hx of migraines Celiac disease Kidney stones GERD (gastroesophageal reflux disease) Heartburn Surgical History H/O knee surgery Family History Father Cancer Mother Type 2 diabetes mellitus Social History Alcohol intake: never Patient Tobacco Use Status: Never used Tobacco Physical Exam Vital Signs: Last Vital Signs Pulse 59 08/01/24 11:34 Pulse Ox 98 08/01/24 11:34 Oxygen Delivery Method Room Air 08/01/24 11:34 BMI result Body Mass Index 22.0 Const General: cooperative, comfortable and no acute distress Nutritional Appearance: average body habitus Orientation/consciousness: patient oriented x3 Eyes Pupils: Equal, round and reactive pupils present Neck Neck: Yes full ROM Resp Effort & Inspection: normal respiratory effort and able to speak in complete sentences Neuro Other: no abnormal movements noticed today General: patient oriented x3 and moves all extremities Cranial nerves: Yes Facial sensation intact/muscles of mastication intact, Yes Equal, round and reactive pupils present, Yes Normal accommodation reflex present, Yes Normal facial strength present, Yes Midline tongue present, Yes Ability to bilaterally rotate head present and Yes Ability to bilaterally elevate shoulders present Cognition (Neuro): normal cognition Gait exam (Neuro): Normal gait present Motor exam (neuro): 5/5 motor strength present throughout and Normal motor muscle tone present throughout Deep tendon reflexes (DTR's): Right triceps reflex intensity grade: 2+, Left triceps reflex intensity grade: 2+, Rt Biceps (C5, C6): 2+, Left biceps reflex intensity grade: 2+, Right brachioradialis reflex intensity grade: 2+, Left brachioradialis reflex intensity grade: 2+, Right patellar reflex intensity grade: 2+ and Left patellar reflex intensity grade: 2+ Coordination: [id number]-[id number]-seoo test normal Results Reviewed Results Reviewed: HST c/w mild latonya AHI is 9 and Oxygen Cullen to 91% start therapy with cpap at 5-89bnT81. Assessment & Plan Assessment & Plan (1) Abnormal involuntary movements: Comment: likely motor TICS/ Tardive? Dyskinesia? Code(s): R25.9 - Unspecified abnormal involuntary movements Category: Medical (2) LATONYA (obstructive sleep apnea): Code(s): G47.33 - Obstructive sleep apnea (adult) (pediatric) Category: Medical (3) Fatigue due to sleep pattern disturbance: Code(s): R53.83 - Other fatigue; G47.9 - Sleep disorder, unspecified Category: Medical (4) Excessive daytime sleepiness: Comment: takes naps frequently Code(s): G47.19 - Other hypersomnia Category: Medical Plan Home c/w mild LATONYA AHI was 9 and oxygen cullen to 90%, start cpap 5-30voL64. Oral movements The movements are mild and intermittent. EEG at [facility] pending results. He is doing better since he switched to famotidine from omeprazole, h/o Lenin fundoplication Excessive daytime sleepiness will review labs and r/o insufficiencies. Dementia will test him for the apoE4 gene with [employer] labs. F/u in 3 months for compliance of cpap therapy will discuss [facility] and sleep dentistry referral for oral appliance at next appt. Orders: Orders Other Ref Test - [facility] 08/01/24 G30.9 - Alzheimer's disease, unspecified, F02.80 - Dementia in other diseases classified elsewhere, unspecified severity, without behavioral disturbance, psychotic disturbance, mood disturbance, and anxiety Patient Instructions: Sleep Hygiene provided: set a scheduled bedtime and wake time to help regulate the circadian rhythm and balance the release of pituitary hormones. Sleep in a dark room, temperatures below 68 degrees, and no devices n bed. Limit caffeinated products 6 hours prior to bed, and limit fluids 2-4 hours prior to bed. Gentle night yoga, diffusing essential oils, and playing soft music can be relaxing. Wash mask and tubing, replace filter and fill reservoir with distilled water as needed. Start cpap 5-20cm H20 and f/u in 3months for compliance. Will f/u with labs and APO E4 testing, and EEG results from [facility]. Coding Level of Care Code Est Pt Level 4 (01685) Diagnoses Abnormal involuntary movements R25.9 LATONYA (obstructive sleep apnea) G47.33 Fatigue due to sleep pattern disturbance R53.83; G47.9 Excessive daytime sleepiness G47.19 Time Spent (min) 30
[2024-08-01 11:34] VITALS: PULSE 59; O2SAT 98; BMI 22.0
--- OUTSIDE RECORDS SUMMARY | 2024-08-01 12:00 | XMS_ITS | Encounter Summary ---
Author Organization [facility], Address [address] [place] [address] Phone Care Team Providers Care Wheel Buffer Name Role Phone Mary Ann Marshall MD Primary Care Provider +1- [phone] Encounter Details Date Type Department Care Team (Late st Contact Info) Description 02/02/2024 Documentation Only [facility] Que [address] [place] [address] Patricia Forbes [address] [place] [address] [phone] Social History Tobacco Use Types Packs/Day Years [...] Visit [facility] JAKE [address] [place] [address] Ermias Shine MD [address] [facility] [place] [phone] documented as of this encounter Visit Diagnoses Not on filedocumented in this encounter Care Teams Wheel Buffer Relationship Specialty Start Date End Date Mary Ann Marshall MD [address] [place] [address], 2nd [place] [address] PCP - General Internal Medicine 08/26/23 documented as of this encounter
--- OUTSIDE RECORDS SUMMARY | 2024-08-01 12:00 | XMS_ITS | Encounter Summary ---
Author Organization [facility], Address [address] [place] [address] Phone Care Team Providers Care Investigative Shopper Name Role Phone Mary Ann Marshall MD Primary Care Provider +1- [phone] Encounter Details Date Type Department Care Team (Late st Contact Info) Description 02/23/2024 Documentation Only [facility] [address] [place] [address] Patricia Forbes [address] [place] [address] [phone] Social History Tobacco Use Types Packs/Day Years [...] Visit [facility] [address] Neel EDWARD [address] [place] [phone] Ermias Shine MD [address] [place] [address] [place] [address] documented as of this encounter Visit Diagnoses Not on filedocumented in this encounter Care Teams Investigative Shopper Relationship Specialty Start Date End Date Mary Ann Marshall MD [address] [place] [address], [address] [place] [address] PCP - General Internal Medicine 08/26/23 documented as of this encounter
--- OUTSIDE RECORDS SUMMARY | 2024-08-01 12:00 | XMS_ITS | Encounter Summary ---
Author Organization [facility], Address [address] [place] [address] Phone Care Team Providers Care Manager Learning Name Role Phone Mary Ann Marshall MD Primary Care Provider [phone]- [phone] Encounter Details Date Type Department Care Team (Late st Contact Info) Description 11/10/2023 Documentation Only [facility] [address] [place] [address] Alice Andujar [address] [place] [address] [phone] Social History Tobacco Use Types Packs/Day Years [...] Visit [facility] [address] Neel EDWARD [address] [place] [phone] Ermias Shine MD [address] [place] [address] [place] [address] documented as of this encounter Visit Diagnoses Not on filedocumented in this encounter Care Teams Manager Learning Relationship Specialty Start Date End Date Mary Ann Marshall MD [address] [place] [address], 2nd [place] [address] PCP - General Internal Medicine 08/26/23 documented as of this encounter
--- OUTSIDE RECORDS SUMMARY | 2024-08-01 12:00 | XMS_ITS | Clinical Summary ---
Author Organization [facility], Address [address] EDWARD [address] [place] [phone] Phone Care Team Providers Care Protective Signal Repairer Name Role Phone Mary Ann Marshall MD Primary Care Provider +1- [phone] Allergies Active Allergy Reactions Criticality Noted Date [...] 07/10/2021 Overview (08/27/2023): due to congenital issue Immunizations Immunization Administration Dates Next Due Influenza, Quadrivalent, Pre [...] Visit [facility] [place], JAKE Glory Kaur [address] [facility] [address] [place] [phone] Ermias Shine MD [address] [place] [address] Health Maintenance Due Date Last Done Comments Colorectal Cancer Screening: Annual FOBT 12/01/2004 Colorectal Cancer Screening: Colonoscopy 12/01/2004 Colorectal Cancer Screening: Sigmoidoscopy 12/01/2004 Influenza Vaccine (Season Ended) 2024 01/09/2023, 12/05/2021, 12/18/2020, Additional history exists Pneumococcal Vaccine: 50+ Years Completed 11/12/2022, 12/18/2020 Hepatitis B Vaccine Aged Out No longe r eligible based on patient's age to complete this topic Insurance Medicare Unicare Care Teams Protective Signal Repairer Relationship Specialty Start Date End Date Mary Ann Marshall MD [address] [place] [address], 2nd [place] [address] PCP - General Internal Medicine 08/26/23
--- OUTSIDE RECORDS SUMMARY | 2024-08-01 12:01 | XMS_ITS | Encounter Summary ---
Author Organization [facility], Address [address] [place] [address] Phone Care Team Providers Care Nursing Service Administrator Name Role Phone Mary Ann Marshall MD Primary Care Provider [phone]- [phone] Encounter Details Date Type Department Care Team (Late st Contact Info) Description 08/26/2023 Documentation Only [facility] [address] [place] [address] [place], [place] [address] [place] [phone] Social History Tobacco Use Types Packs/Day Years [...] Visit [facility] [address] Neel EDWRAD [address] [place] [phone] Ermias Shine MD [address] [place] [address] [place] [address] documented as of this encounter Visit Diagnoses Not on filedocumented in this encounter Care Teams Nursing Service Administrator Relationship Specialty Start Date End Date Mary Ann Marshall MD [address] [employer] [place] [employer] [place] [address], [place] [address] PCP - General Internal Medicine 08/26/23 documented as of this encounter
--- OUTSIDE RECORDS SUMMARY | 2024-08-01 12:01 | XMS_ITS | Encounter Summary ---
Author Organization [facility] [place], Address [address] [place] [address] Phone Care Team Providers Care Contract Accountant Name Role Phone Mary Ann Marshall MD Primary Care Provider [phone]- [phone] Encounter Details Date Type Department Care Team (Late st Contact Info) Description 09/24/2023 Documentation Only [facility] [address] [place] [address] Patricia Forbes [address] [place] [address] [phone] Social History Tobacco Use Types Packs/Day Years [...] Visit [facility] [address] Neel EDWARD [address] [place] [phone] Ermias Shine MD [address] [place] [address] [place] [address] documented as of this encounter Visit Diagnoses Not on filedocumented in this encounter Care Teams Contract Accountant Relationship Specialty Start Date End Date Mary Ann Marshall MD [address] [place] [address], 2nd [place] [address] PCP - General Internal Medicine 08/26/23 documented as of this encounter
--- OUTSIDE RECORDS SUMMARY | 2024-08-01 12:01 | XMS_ITS | Continuity of Care Document ---
Author Organization [facility] Address [address] [place] [address] Phone Care Team Providers Care Bean Picker Name Role Phone Bjorn Daniels MD Unavailable [...] Copied on Encounter Office/Outpa tient Visit, Est [facility] , [address] [place], [place], [facility], tel:[phone] [facility] No Information 201 0 Jeremiah Milan. [address] [place], [id number] , [place]. tel:[phone] Referring Provider: Bjorn Carolina, [address] [place], [address] . tel:[phone] Office/Outpa tient Visit, Est [facility] , [address] [place], [place], [facility], tel:[phone] [place] [address] Brent knee pain (chief complaint) No Information 8201 0 Jeremiah Milan. [address] [place], [place], [id number] , [place]. tel:[phone] Referring Provider: Bjorn Carolina, [address] [place], [address] . tel:[phone] [facility] , [address] [place], [place], [facility], tel:[phone] [facility] Left wrist fracture (chief complaint) No Information 200 9 Darin Pitts. [address] [place], [place], [id number] , [place]. tel:[phone] Referring Provider: Bjorn Carolina, [address], [place], [address] . tel:[phone] Office/Outpa tient Visit, Est [facility] , [address], [place], [place], [facility], tel:[phone] [facility] Left wrist fracture (chief complaint) FX of ulna, distal, alone Sep-1 1200 9 Gilmer Lau. [address] [place], [place], [address] [place] [address] , . tel: [phone] Referring Provider: Bjorn Carolina, [address] , [place], [address] . tel:[phone] [facility] , [address] [place], [place], [facility], tel:[phone] [facility] Left wrist fracture (chief complaint) Pain in knee joint Sep-0 3-200 9 Darin Pitts. [address] [place], [place], [address] [place] [address] , . tel: [phone] Referring Provider: Bjorn Carolina, [address] , [place], [address] . tel:[phone] Office/Outpa tient Visit, [facility] , [address], [place], [facility], tel:[phone] [facility] Left wrist fracture (chief complaint) FX of ulna, distal, alone Aug- 9 Gilmer Lau. [address] , [place], [place], [address] [place] [address] , . tel: [phone] Referring Provider: Bjorn Carolina, [address] , [place], [address] . tel:[phone] [facility] , [address] [place], [place], [facility], tel:[phone] [place] [address] No Information Oct- 1 9 Jeremiah Milan. [address] [place], [place], [address] [place] [address] , . tel: [phone] Referring Provider: Bjorn Carolina, [address], [place], [address] . tel:[phone] [facility] , [address] , [place], [facility], tel:[phone] [facility] Left wrist fracture (chief complaint) No Information 0-200 9 Webster PT Gisselle. [address] , [place], [place], [id number] , [place]. tel: [phone] Referring Provider: Bjorn Carolina, [address] , [place], [address] . tel:[phone] [facility] , [address], [place], [facility], tel:[phone] [facility] Left wrist fracture (chief complaint) No Information 9-200 9 Hari Mendez. [address] , [place], [place], [id number] , . tel: [phone] Referring Provider: Bjorn Carolina, [address] , [place], [address] . tel:[phone] Office/Outpa tient Visit, Est [facility] , [address] , [place], [facility], tel:[phone] [facility] Left wrist fracture (chief complaint) FX of ulna, distal, aloneFX of ulna, distal, alone 200 9 Gilmer Lau. [address] , [place], [id number] , [place]. tel: [phone] [facility] , [address] , [place], [facility], tel:[phone] [facility] Left knee pain (chief complaint) Follow-up of other surgery 3200 9 Hari Mendez. [address] , [place], [place], [id number] , [place]. tel: [phone] Referring Provider: Bjorn Carolina, [address] , [place], [address] . tel:[phone] [facility] , [address], [place], [facility], tel:[phone] [facility] Left knee pain (chief complaint) Stiffness in knee jointFollow-up of other surgery 9 Webster PT Gisselle. [address], [place], [place], [id number] , . tel: [phone] Referring Provider: Bjorn Carolina, [address], [place], [address] . tel:[phone] [facility] , [address], [place], [facility], tel:[phone] [facility] Left knee pain (chief complaint) Muscle weakness, generalizedStiffne ss in knee jointFollow-up of other surgery 9 Webster PT Gisselle. [address], [place], [place], [id number] , . tel: [phone] Referring Provider: Bjorn Carolina, [address], [place], [place], [address] [place] [address] . tel:[phone] [facility] , [address], [place], [facility], tel:[phone] [place] [address] No Information 9 Jeremiah Milan. [address], [place], [place], [id number] , . tel: [phone] Referring Provider: Bjorn Carolina, [address], [place], [address] . tel:[phone] [facility] , [address], [place], [facility], tel:[phone] [facility] No Information 9 Jeremiah Milan. [address], [place], [place], [id number] , . tel: [phone] Referring Provider: Bjorn Carolina, [address], [place], [address] . tel:[phone] [facility] , [address], [place], [facility], tel:[phone] [facility] No Information 9 Jeremiah Milan. [address], [place], [place], [id number] , [place]. tel: [phone] Referring Provider: Bjorn Carolina, [address], [place], [address] . tel:[phone] Pre-op Exam [facility] , [address], [place], [facility], [place] tel:[phone] [place] [address] No Information 9 Jeremiah Milan. [address], [place], [id number] , [place]. tel: [phone] Referring Provider: Bjorn Carolina, [address], [place], [address] . tel:[phone] [facility] , [address], [place], [facility], tel:[phone] [place] [address] Medial meniscal tear, posterior horn, degenerative, chronic, kneeChondral lesion, osteolysis 9 Jeremiah Milan. [address], [place], [place], [id number] , [place]. tel: [phone] Referring Provider: Bjorn Carolina, [address], [place], [address] . tel:[phone] [facility] , [address], [place], [facility], tel:[phone] [place] [address] No Information 9 Jeremiah Milan. [address], [place], [id number] , [place]. tel: [phone] Referring Provider: Bjorn Carolina, [address], [place], [address] . tel:[phone] Office/Outpa tient Visit, Est [facility] , [address], [place], [facility], [place] tel:[phone] [place] [address] Left knee pain (chief complaint) No Information 9 Jeremiah Milan. [address], [place], [place], [id number] , . tel:[phone] [facility], [address], [place], [address], [place] tel:[phone] [facility] No Information 0-200 9 Jeremiah Milan. [address], [place], [place], [id number] , . tel: [phone] Family History Family Member Type Diagnosis Age At Onset Problem (finding) Family history of Anest hetic problems Payers Payer name Insurance type Covered constitution party ID Authoriza tion(s) [employer] EPO Open Option CI [id number] Social History Type Description Quantity Date Captured [...]
--- OUTSIDE RECORDS SUMMARY | 2024-08-01 12:01 | XMS_ITS | Encounter Summary ---
Author Organization [facility], Address [address] [place] [address] Phone Care Team Providers Care Hogshead Press Operator Name Role Phone Mary Ann Marshall MD Primary Care Provider [phone]- [phone] Encounter Details Date Type Department Care Team (Late st Contact Info) Description 09/22/2023 Documentation Only [facility] [address] [place] [address] Patricia Forbes [address] [place] [phone] Social History Tobacco Use Types Packs/Day [...] Visit [facility] [address] Neel EDWARD [address] [place] [phone] Ermias Shine MD [address] [place] [address] [place] [address] documented as of this encounter Visit Diagnoses Not on filedocumented in this encounter Care Teams Hogshead Press Operator Relationship Specialty Start Date End Date Mary Ann Marshall MD [address] [place] [address], 2[address] [place] [address] PCP - General Internal Medicine 08/26/23 documented as of this encounter
--- OUTSIDE RECORDS SUMMARY | 2024-08-01 12:01 | XMS_ITS | Encounter Summary ---
Author Organization [facility], Address [address] [place] [address] Phone Care Team Providers Care Personnel Worker Name Role Phone Mary Ann Marshall MD Primary Care Provider [phone]- [phone] Encounter Details Date Type Department Care Team (Late st Contact Info) Description 09/11/2023 Documentation Only [facility] [address] [place] [address] [place], [place] [address] [place] [phone] Social History Tobacco Use Types Packs/Day Years [...] Visit [facility] [address] Neel EDWARD [address] [place] [phone] Ermias Shine MD [address] [place] [address] [place] [address] documented as of this encounter Visit Diagnoses Not on filedocumented in this encounter Care Teams Personnel Worker Relationship Specialty Start Date End Date Mary Ann Marshall MD [address] [place], [place] [address], [place] [address] PCP - General Internal Medicine 08/26/23 documented as of this encounter
--- OUTSIDE RECORDS SUMMARY | 2024-08-01 12:01 | XMS_ITS | Data Portability ---
Author Organization [place] - [facility], Allergy Address [address] [address] Care Team Providers Care Ropeman Name Role Phone CARMEN MONTALVO Primary Care [...] modified barium swallow study 2023 024 [email or web address], [address] [place], [address], 16:49:09 Medication Orders None recorded. Patient TargetsNo targets recorded. Patient InstructionsNo instructions recorded. Reason for Referral None Reported. Problems Name Problem SNOMED Code Status Onset Date Resolution Date Notes Provider Name and Address Organization Details Recorded Time Gastroeso phageal reflux disease without esophagit is 196695675 Active 2017 Gastro-eso phageal reflux disease without esophagiti s; Note: Date Diagnosed: 12/23/2017 9:56 AM (K21.9) Not Available [facility] 4 03:33:08 Dysphonia 05809023 Active 2017 Other voice and resonance disorders; Note: Date Diagnosed: 12/23/2017 9:56 AM (R49.8) Not Available [facility] 4 03:33:08 Finding of resonance of voice 894524596 Active 2017 Other voice and resonance disorders; Note: Date Diagnosed: 12/23/2017 9:56 AM (R49.8) Not Available [facility] 4 03:33:08 Dysphagia 21108955 Active 2023 Alexandria mcgraw [place] [facility] 12:19:47 Problem Notes None recorded. Procedures Surgical History Date Name Laterality Status Provider Name and Address Organization Details Recorded Time 09/24/19 24 Fiberoptic Laryngoscopy (Comprehensive) completed Alexandria Hamlin [place] - [facility] 09/24/2023 12:19:31 Imaging Results None recorded. Procedure Notes None recorded. Medical Equipment None Reported. Allergies Allergen ID Allergen Name Allergen Category Reaction Reaction Severity Criticality Documentation Date Start Date Code Code System Note Provider Name and Address Organization Details Recorded Time 840511 aspirin medicatio n Not available Not available Not available 09/24/2023 1191 RxNorm Judi mcgraw [place] [facility] 4 11:05:42 481617 Reglan medicatio n Not available Not available Not available 09/24/2023 9230 RxNorm Judi Suraj mcgraw [place] [facility] 4 11:05:50 Medications Name Sig Start Date [...] chewable tablet 2017 active Medicati on ID: [id number] B rand Name: Calcium 500 Send Method: [...] Updated DateTime 09/24/2023 182.88 cm 21 kg/m2 78431.82 g Judi Harry [facility] 09/24/2023 11:05:33 Social History None recorded. Functional Status None recorded. Mental Status None recorded. Family History Nothing Reported. Medical History No medical history recorded. Past Encounters Encounter ID Performer Location Encounter Start Date Encounter Closed Date Diagnosis/Indication Diagnosis SNOMED-CT Code Diagnosis ICD10 Code Diagnosis Note [id number] ALEXANRDIA HAMLIN PA-C [facility] on [address] [place] [address] 09/24/2023 10:48:51 09/25/2023 16:49:09 Dysphonia 72650893 R49.8 Gastroesop hageal reflux disease without esophagitis 471169430 K21.9 Dysphagia 12744909 R13.1 0 Health Concerns Section Related Observation LastModified by Organization Detai ls LastModified Time None Recorded Concern Status LastModified by Organization Details LastModified Time None Recorded Advance Directives Directive None Recorded Payers Insurance Date Sequence Insurance Name Policy Number Policy Ferreira Covered Member ID Ferreira Member ID Guarantor Name 09/23/2023 2 [facility] [id number] Vladimir Flores [id number] Vladimir Flores 09/26/2023 1 [place]ICARE B-[place]: [employer] [place] [facility] Vladimir Flores III [id number] Vladimir Flores Notes Date Note Type [...] another modified barium swallow. MARYLU CHOI MD [address] [place] [address], [phone], [place] - [facility] 09/25/2023 12:48:46
--- OUTSIDE RECORDS SUMMARY | 2024-08-01 12:01 | XMS_ITS | Encounter Summary ---
Author Organization [facility] [place], Address [address] [place] [address] Phone Care Team Providers Care Industrial Welder Name Role Phone Mary Ann Marshall MD Primary Care Provider [phone]- [phone] Encounter Details Date Type Department Care Team (Late st Contact Info) Description 09/22/2023 Documentation Only [facility] [address] [place] [address] Patricia Forbes [address] [place] [phone] Social History Tobacco Use Types Packs/Day [...] Visit [facility] [address] Neel EDWARD [address] [place] [phone] Ermias Shine MD [address] [place] [address] [place] [address] documented as of this encounter Visit Diagnoses Not on filedocumented in this encounter Care Teams Industrial Welder Relationship Specialty Start Date End Date Mary Ann Marshall MD [address] [place] [address], [address]nd [place] [address] PCP - General Internal Medicine 08/26/23 documented as of this encounter
--- OUTSIDE RECORDS SUMMARY | 2024-08-01 12:01 | XMS_ITS | Encounter Summary ---
Author Organization [facility] [place], Address [address] [place] [address] Phone Care Team Providers Care Drywall Foreman Name Role Phone Mary Ann Marshall MD Primary Care Provider [phone]- [phone] Encounter Details Date Type Department Care Team (Late st Contact Info) Description 09/15/2023 Documentation Only [facility] [address] [place] [address] Patricia Forbes [address] [place] [phone] Social History Tobacco Use Types Packs/Day [...] Visit [facility] [address] Neel EDWARD [address] [place] [phone] Ermias Shine MD [address] [place] [address] [place] [address] documented as of this encounter Visit Diagnoses Not on filedocumented in this encounter Care Teams Drywall Foreman Relationship Specialty Start Date End Date Mary Ann Marshall MD [address] [place] [address], 2nd [place] [address] PCP - General Internal Medicine 08/26/23 documented as of this encounter
--- OUTSIDE RECORDS SUMMARY | 2024-08-01 12:01 | XMS_ITS | Continuity of Care Document ---
Author Organization [facility] Address [address] [facility] [address] [place], [place] Phone [phone] Care Team Providers Care Ballistics Expert Forensic Name Role Phone Rolando Reese MD Care Team Information Anesthesiologist Assistant Unavailable ANABELLA CHAUHAN M.D. Care Team Information [...] Calcium Citrate 250MG 1/d @ supper-> bid(04/2020)->1/d( 05/2023)->[id number]( 2023) Unknown Famotidine 40mg @pm Unknown 0 Vit B12 @1000/d(12/2022is h) Unknown Creon 36,000x2(double dose) Unknown History Medications Calcitriol0.5mcg Capsules 1 by mouth every day Unknown - 05/19/2023 Prilosec OTCTablets 1 tab by mouth ev dinora Unknown - 07/[id number] tapering off Un known - 07/07/2023
== END 2024-08-01 12:42 | disposition home or self-care (01) ==
LOC: HO.HSMS 11:16
PROVIDERS: Visit Provider Physician Assistant Medical
DX: R25.9 Unspecified abnormal involuntary movements (principal); G47.33 Obstructive sleep apnea (adult) (pediatric); R53.83 Other fatigue; G47.9 Sleep disorder, unspecified; G47.19 Other hypersomnia
CPT/HCPCS: 99214

== ENCOUNTER → 2024-08-01 11:15 | Outpatient (BNVA) | payer MEDICARE, OTHER, SELFPAY | PROVIDERS: Visit Provider Physician Assistant Medical | DX: G30.9 Alzheimer's disease, unspecified (principal); G47.9 Sleep disorder, unspecified; G47.19 Other hypersomnia; G47.33 Obstructive sleep apnea (adult) (pediatric); F02.80 Dementia in other diseases classified elsewhere, unspecified severity, without behavioral disturbance, psychotic disturbance, mood disturbance, and anxiety; R53.83 Other fatigue; R25.9 Unspecified abnormal involuntary movements | CPT/HCPCS: 99212 ==

== ENCOUNTER 2024-10-31 10:51 | Outpatient (AMB) | payer MEDICARE, OTHER, SELFPAY ==
--- OUTSIDE RECORDS SUMMARY | 2010-03-06 20:00 | XMS_ITS | Continuity of Care Document ---
Author Organization [facility] Address [address] [place] [address] Phone Care Team Providers Care Comb Fixer Name Role Phone Bjorn Daniels MD Unavailable [...] Diagnoses Date Provider Providers Copied on Encounter Office/Outpa tient Visit, Est [facility] , [address] [place], [place], [facility], tel:[phone] [facility] No Information 201 0 Jeremiah Milan. [address], [id number] , [place]. tel:[phone] Referring Provider: Bjorn Carolina, [address] [place], [address] . tel:[phone] Office/Outpa tient Visit, Est [facility] , [address] [place], [place], [facility], tel:[phone] [place] [address] Brent knee pain (chief complaint) No Information 8201 0 Jeremiah Milan. [address] [place], [place], [id number] , [place]. tel:[phone] Referring Provider: Bjorn Carolina, [address] [place], [address] . tel:[phone] [facility] , [address] [place], [place], [facility], tel:[phone] [facility] Left wrist fracture (chief complaint) No Information 200 9 Darin Pitts. [address] [place], [place], [id number] , [place]. tel:[phone] Referring Provider: Bjorn Carolina, [address], [place], [address] . tel:[phone] Office/Outpa tient Visit, Est [facility] , [address], [place], [facility], tel:[phone] [facility] Left wrist fracture (chief complaint) FX of ulna, distal, alone Sep-1 1200 9 Gilmer Lau. [address] [place], [place], [address] [place] [address] , . tel: [phone] Referring Provider: Bjorn Carolina, [address] , [place], [address] . tel:[phone] [facility] , [address] [place], [place], [facility], tel:[phone] [facility] Left wrist fracture (chief complaint) Pain in knee joint Sep-0 3-200 9 Darin Pitts. [address] [place], [place], [address] [place] [address] , . tel: [phone] Referring Provider: Bjorn Carolina, [address] , [place], [address] . tel:[phone] Office/Outpa tient Visit, [facility] , [address], [place], [facility], tel:[phone] [facility] Left wrist fracture (chief complaint) FX of ulna, distal, alone Aug- 9 Gilmer Lau. [address] , [place], [place], [address] [place] [address] , . tel: [phone] Referring Provider: Bjorn Carolina, [address] , [place], [address] . tel:[phone] [facility] , [address] [place], [place], [facility], tel:[phone] [place] [address] No Information Oct- 1 9 Jeremiah Milan. [address] [place], [place], [address] [place] [address] , . tel: [phone] Referring Provider: Bjorn Carolina, [address], [place], [address] . tel:[phone] [facility] , [address] , [place], [facility], tel:[phone] [facility] Left wrist fracture (chief complaint) No Information 0-200 9 [facility] Gisselle. [address] , [place], [place], [id number] , [place]. tel: [phone] Referring Provider: Bjorn Carolina, [address] , [place], [address] . tel:[phone] [facility] , [address], [place], [facility], tel:[phone] [facility] Left wrist fracture (chief complaint) No Information 9-200 9 Hari Mendez. [address] , [place], [place], [id number] , . tel: [phone] Referring Provider: Bjorn Carolina, [address] , [place], [address] . tel:[phone] Office/Outpa tient Visit, Est [facility] , [address] , [place], [facility], tel:[phone] [facility] Left wrist fracture (chief complaint) FX of ulna, distal, aloneFX of ulna, distal, alone 200 9 iGlmer Lau. [address] , [place], [place], [id number] , [place]. tel: [phone] [facility] , [address] , [place], [facility], tel:[phone] [facility] Left knee pain (chief complaint) Follow-up of other surgery 3200 9 Hari Mendez. [address] , [place], [place], [id number] , [place]. tel: [phone] Referring Provider: Bjorn Carolina, [address] , [place], [address] . tel:[phone] [facility] , [address], [place], [facility], tel:[phone] [facility] Left knee pain (chief complaint) Stiffness in knee jointFollow-up of other surgery 9 [facility] Gisselle. [address], [place], [place], [id number] , . tel: [phone] Referring Provider: Bjorn Carolina, [address], [place], [address] . tel:[phone] [facility] , [address], [place], [facility], tel:[phone] [facility] Left knee pain (chief complaint) Muscle weakness, generalizedStiffne ss in knee jointFollow-up of other surgery 9 [facility] Gisselle. [address], [place], [place], [address] , . tel: [phone] Referring Provider: Bjorn Carolina, [address], [place], [place], [address] [place] [address] . tel:[phone] [facility] , [address], [place], [facility], tel:[phone] [place] [address] No Information 9 Jeremiah Milan. [address], [place], [place], [id number] , . tel: [phone] Referring Provider: Bjorn Carolina, [address], [place], [address] . tel:[phone] [facility] , [address], [place], [facility], tel:[phone] [facility] No Information 9 Jeremiah Milan. [address], [place], [place], [id number] , . tel: [phone] Referring Provider: Bjorn Carolina, [address], [place], [address] . tel:[phone] [facility] , [address], [place], [facility], tel:[phone] [facility] No Information 9 Jeremiah Milan. [address], [place], [place], [id number] , [place]. tel: [phone] Referring Provider: Bjorn Carolina, [address], [place], [address] . tel:[phone] Pre-op Exam [facility] , [address], [place], [facility], [place] tel:[phone] [place] [address] No Information 9 Jeremiah Milan. [address], [place], [place], [id number] , [place]. tel: [phone] Referring Provider: Bjorn Carolina, [address], [place], [address] . tel:[phone] [facility] , [address], [place], [facility], tel:[phone] [place] [address] Medial meniscal tear, posterior horn, degenerative, chronic, kneeChondral lesion, osteolysis 9 Jeremiah Milan. [address], [place], [place], [id number] , [place]. tel: [phone] Referring Provider: Bjorn Carolina, [address], [place], [address] . tel:[phone] [facility] , [address], [place], [facility], tel:[phone] [place] [address] No Information 9 Jeremiah Milan. [address], [place], [place], [id number] , [place]. tel: [phone] Referring Provider: Bjorn Carolina, [address], [place], [address] . tel:[phone] Office/Outpa tient Visit, Est [facility] , [address], [place], [facility], [place] tel:[phone] [place] [address] Left knee pain (chief complaint) No Information 9 Jeremiah Milan. [address], [place], [place], [id number] , . tel:[phone] [facility], [address], [place], [address], [place] tel:[phone] [facility] No Information 0-200 9 Jeremiah Milan. [address], [place], [place], [id number] , . tel: [phone] Family History Family Member Type Diagnosis Age At Onset Problem (finding) Family history of Anest hetic problems Payers Payer name Insurance type Covered libertarian ID Authoriza tion(s) [place] EPO Open Option CI [id number] Social History Type Description Quantity Date Captured [...]
[2024-10-31 11:02] VITALS: BP 106/64; PULSE 58; O2SAT 96; BMI 21.2
--- NOTE | 2024-10-31 11:02 | MHC.OFFVIS ---
Vital Signs 10/31/24 11:02 Height 6 ft Weight 156 lb 4 oz BMI 21.2 BP 106/64 Blood Pressure Location Rt brachial Position Sitting Pulse 58 Pulse Source Pulse Oximeter Pulse Oximetry (%) 96 Oxygen Delivery Method Room Air Intake Visit Reasons: 3 mo follow up Intake Note: Patient presents follow up Abnormal movements/LATONYA. EEG/Compliance in chart(67/68 days, >=4hrs- 97%, Average usage- 7hr 8min, Med Pressure- 6.8, Med Leaks- 6.9, AHI-0.7). Accompanied by: Spouse Allergies metoclopramide (From Reglan) Allergy (Unknown, Verified 10/31/24 11:05) Unknown HPI Comments Details: 68y/o male comes for evaluation of abnormal involuntary movements in his tongue and mouth. HST c/w mild latonya AHI is 9 and oxygen nadirs to 91%, will start him on cpap therapy at [id number]. LATONYA compliance report August 2024- Oct 2024 Total use 67/68 days and >4 hours is 97% Avg use is 7 hours and 8min Press are 6.8, leaks are 6.9 and AHI is 0.7 He washes his mask, rinses the hoses, changes filters and fills reservoir with water daily. 04/2024 EEG reviewed with patient no evidence of epileptic disorder. His Annemarie helps with history today. He recently received has a chin strap for his cpap, however this did not seem to help with leaks. He notices when he tapes the mask to his face the hissing sound and leaks improve. The pressures are okay, however he still will have dry mouth at 81 degrees and notices condensation collecting in the hose. The snoring has diminished and he sleeps more soundly, feels better when using the cpap daily. He is more alert, productive and his driving has improved. He still has LLQ pain due to bloating and h/o celiac disease. He is on Creon- Bzicnl-Casklzpx-Kcxkavy TID , and will f/u with GI in Mar 2024. Oral tics, seem moderate now per his , when he is concentrating on a task. Memory can be poor, especially when multitasking, will forget names and why he entered into a room. He denies word recall difficulties, getting lost while driving. He denies restless leg symptoms of numbness, tingling, burning in his feet bilaterally. He denies freezing of gait, tremors, shuffling of feet and or foot drop, Upper extremity weakness, or difficulty drinking his coffee in a cup or holding a spoon. He is independent in all his ADLs and lives an active lifestyle, walks 2 miles daily. His still notices he will lick his lips and make a noise with his mouth as if puffing air. He can suppress it when noticeable. The movements are not bothersome to him. His also has noticed occasional jerky movements usually when he falls asleep- for many years. [facility] - [facility] Medical History Abnormal involuntary movements Hx of migraines Celiac disease Kidney stones GERD (gastroesophageal reflux disease) Heartburn Surgical History H/O knee surgery Family History Father Cancer Mother Type 2 diabetes mellitus Social History Alcohol intake: never Patient Tobacco Use Status: Never used Tobacco Physical Exam Vital Signs: Last Vital Signs Pulse 58 10/31/24 11:02 BP 106/64 10/31/24 11:02 Pulse Ox 96 10/31/24 11:02 Oxygen Delivery Method Room Air 10/31/24 11:02 BMI result Body Mass Index 21.2 Const General: cooperative, comfortable and no acute distress Nutritional Appearance: average body habitus Orientation/consciousness: patient oriented x3 Eyes Pupils: Equal, round and reactive pupils present Neck Neck: Yes full ROM Resp Effort & Inspection: normal respiratory effort and able to speak in complete sentences Neuro Other: no abnormal movements noticed today, slight oral tic, around the lips. General: patient oriented x3 and moves all extremities Cranial nerves: Yes Facial sensation intact/muscles of mastication intact, Yes Equal, round and reactive pupils present, Yes Normal accommodation reflex present, Yes Normal facial strength present, Yes Midline tongue present, Yes Ability to bilaterally rotate head present and Yes Ability to bilaterally elevate shoulders present Cognition (Neuro): normal cognition Gait exam (Neuro): Normal gait present Motor exam (neuro): 5/5 motor strength present throughout and Normal motor muscle tone present throughout Psych Appearance: grossly normal Mental Status: mental status grossly normal Thought process: Normal thought process present Thought content: Normal thought content present Orientation What is the (year) (season) (date) (day) (month)?: year, season, date, day and month Where are we (state) (county) (town or city) (hospital) (floor)?: state, county, town or city, hospital/clinic and floor Registration Name of 3 unrelated objects clearly and slowly, then ask patient to repeat all 3 of them. (1st repeat determines score. Make sure they can repeat all three): object 1, object 2 and object 3 Attention & Calculation (CHOOSE ONE) Spell WORLD backwards (DLROW): 5 letters Recall Ask patient to repeat the 3 items from question #3.: object 1, object 2 and object 3 Language Show patient a wristwatch & ask what it is. Repeat for pencil.: watch and pencil Ask the patient to repeat the phrase 'No ifs, ands, or buts' after you.: correct Ask the patient to 'take a piece of paper with their right hand' 'fold paper in half' 'place paper on floor': take paper in right hand, fold paper in half and place paper on floor Print the sentence 'CLOSE YOUR EYES' on a piece. If patient actually closes eyes then score.: followed written direction Give patient a blank piece of paper & ask to write a sentence. Score if it contains a noun & verb.: sentence contains subject and verb Ask patient to copy figure of intersecting pentagons exactly. Score if all 10 angles & 2 intersects are included.: all 10 angles present & 2 are intersected Score Score: 30 Results Reviewed Results Reviewed: HST c/w mild latonya AHI is 9 and oxygen nadirs to 91%, will start him on cpap therapy at 5-40icE35. LATONYA compliance report August 2024- Oct 2024 Total use 67/68 days and >4 hours is 97% Avg use is 7 hours and 8min Press are 6.8, leaks are 6.9 and AHI is 0.7 Assessment & Plan Assessment & Plan (1) Excessive daytime sleepiness: Comment: takes naps frequently Code(s): G47.19 - Other hypersomnia Category: Medical (2) Cognitive attention deficit: Comment: H/O ADHD Code(s): R41.840 - Attention and concentration deficit Category: Medical (3) Abnormal involuntary movements: Comment: likely motor TICS/ Tardive? Dyskinesia? and h/o reglan use Code(s): R25.9 - Unspecified abnormal involuntary movements Category: Medical (4) LATONYA (obstructive sleep apnea): Code(s): G47.33 - Obstructive sleep apnea (adult) (pediatric) Category: Medical Plan Mild LATONYA AHI c/w 9/hr and oxygen nadirs to 90%, start cpap [id number]. Continue cpap and for >4hours a night. Abnormal involuntary movements are mild and intermittent. EEG results reviewed with pt. No evidence of epileptic disorder. PSG patient would like to see more invasive sleep test results with sleep stage patterns. Neuro cog testing due to cognitive deficits will refer to Neuro-psychiatry [facility] referral for evaluation. Excessive daytime sleepiness will review labs from [facility] and r/o insufficiencies. Dementia will test him for the apoE4 gene with [employer]. F/u in 3 months. Orders: Orders RT PSG in-lab sleep study Today G47.19 - Other hypersomnia Referrals Neuropsychiatry Referral R41.840 - Attention and concentration deficit Patient Instructions: Sleep Hygiene provided: set a scheduled bedtime and wake time to help regulate the circadian rhythm and balance the release of pituitary hormones. Sleep in a dark room, temperatures below 68 degrees, and no devices n bed. Limit caffeinated products 6 hours prior to bed, and limit fluids 2-4 hours prior to bed. Gentle night yoga, diffusing essential oils, and playing soft music can be relaxing. He does have a h/o past reglan use. + for alzheimers dementia Coding Level of Care Code Est Pt Level 4 (59310) Diagnoses Excessive daytime sleepiness G47.19 Cognitive attention deficit R41.840 Abnormal involuntary movements R25.9 LATONYA (obstructive sleep apnea) G47.33
--- OUTSIDE RECORDS SUMMARY | 2024-10-31 11:57 | XMS_ITS | Encounter Summary ---
Author Organization [facility], Address [address] [place] [address] Phone Care Team Providers Care Bottom Liner Name Role Phone Mary Ann Marshall MD Primary Care Provider [phone] Encounter Details Date Type Department Care Team (Late st Contact Info) Description 11/10/2023 Documentation Only [facility] [address] [place] [address] Alice Andujar [address] [place] [phone] Social History Tobacco Use Types Packs/Day Years Used Date Smoking Tobacco: Never Assessed Sex and Gender Information Value Date Recorded Sex Assigned at Not on file Legal Sex Male 8:30 AM EDT Gender Identity Not on file Sexual Orientation Not on file documented as of this encounter Plan of Treatment Upcoming Encounters Date Type Department Care Team (Late st Contact Info) Description 08/31/2025 9:30 AM EDT Office Visit [facility] [address] Neel EDWARD [address] [place] [phone] Ermias Shine MD [address] [place] [address] [place] [address] documented as of this encounter Visit Diagnoses Not on filedocumented in this encounter Care Teams Bottom Liner Relationship Specialty Start Date End Date Mary Ann Marshall MD [address] [place] [address], 2[address] [place] [address] PCP - General Internal Medicine 08/26/23 documented as of this encounter
--- OUTSIDE RECORDS SUMMARY | 2024-10-31 11:57 | XMS_ITS | Encounter Summary ---
Author Organization [facility] Address [address] [place] [address] [place] [phone] Phone Care Team Providers Care Facility Coordinator Name Role Phone Marquis Yao MD Unavailable + Declan Davey MD Unavailable Mary Ann Marshall MD Unavailable Giselle Willard PA-C Unavailable Lai Rockwell MD Unavailable Marianna Vazquez MD Unavailable Mary Ann Marshall MD Primary Care Provider [phone] Mary Ann Marshall MD Unavailable [phone] Encounter Details Date Type Department Care Team (Late st Contact Info) Description 03/10/2017 Transcribe Orders [address] [place] [address] Anabella Chauhan MD [address] [facility], [address] [place] [address] [email or web address] Osteopenia, unspecified location (Primary Dx) Social History Tobacco Use Types Packs/Day Years Used Date Smoking Tobacco: Never Assessed Sex and Gender Information Value Date Recorded Sex Assigned at Male 08/04/2023 2:25 AM EDT Legal Sex Male 9:54 PM EDT Gender Identity Male 08/04/2023 2:25 AM EDT Sexual Orientation Straight 08/04/2023 2: 25 AM EDT documented as of this encounter Plan of Treatment Upcoming Encounters Date Type Department Care Team (Late st Contact Info) Description 12/12/2024 10:30 AM EDT Office Visit [facility] [address] [facility] 3rd Floor, [address] [place] [address] Judi Kat, ELLIS [address] [facility], [address] [place] [address] [email or web address] 04/06/2025 2:45 PM EST Appointment [facility], Bone Density - [address] [address] Anabella Chauhan MD [address] [place] [address] 8 [place] [address] [email or web address] documented as of this encounter Results * Testosterone, total (03/10/2017 8:41 AM EST) TESTOSTERONE 403 72 - 623 ng/dL [facility] Blood 03/10/2017 8:41 AM EST 03/10/2017 2:33 PM EST Anabella Chauhan MD LAB BLOOD ORDERABLES Final R esult [address] [address] * (ABNORMAL) Testosterone bioavailable, serum (03/10/2017 8:41 AM EST) BIOAVAIL TESTOST 29(L) 40 - 168 ng/dL [facility] Comment: (NOTE) ADDITIONAL INFORMATION Testing performed by Differential Precipitation. This test was developed and its performance characteristics determined by [facility] in a manner consistent with CLIA requirements. This test has not been cleared or approved by the U.S. Food and Drug Administration. TESTOSTERONE, TOTAL 394 240 - 950 ng/dL [facility] Comment: (NOTE) ADDITIONAL INFORMATION Testing performed by Liquid Chromatography-Tandem Mass Spectrometry (LC-MS/MS). This test was developed and its performance characteristics determined by [facility] in a manner consistent with CLIA requirements. This test has not been cleared or approved by the U.S. Food and Drug Administration. Blood 03/10/2017 8:41 AM EST 03/10/2017 8:44 AM EST Anabella Chauhan MD LAB BLOOD ORDERABLES Final R esult Performing Organization Address City/[facility]/ZIP Co de Phone Number [facility] [address] [place] [address] * FSH (03/10/2017 8:41 AM EST) FSH 5.2 IU/L [facility] Comment:MALE: 1.5-12.5 mIU/m L Blood 03/10/2017 8:41 AM EST 03/10/2017 2:33 PM EST Anabella Chauhan MD LAB BLOOD ORDERABLES Final R esult Performing Organization Address City/[facility] Co de Phone Number [address] [address] documented in this encounter Visit Diagnoses Diagnosis Osteopenia, unspecified location- Primary documented in this encounter Additional Health Concerns Infection Onset Date Last Indicated Resolved Time CoV-Risk Comment:Per Ambulatory Triage Form 2021 12/03/202112/14 1:22 AM EDT documented as of this encounter Care Teams Facility Coordinator Relationship Specialty Start Date End Date Mary Ann Marshall MD [address] [place] [address], [address] [place] [address] PCP - General Internal Medicine 03/10/17 Marquis Yao MD [address] [place] [address] [email or web address] Historical LMR Provider 12/31/16 03/23/21 Declan Davey MD [address] [place] [address] [email or web address] Historical LMR Provider 12/31/16 03/23/21 Mary Ann Marshall MD [address] [place] [address] Historical LMR Provider 12/31/16 Giselle Willard PA-C [address] [place] [address] [facility], [place] [address] Historical LMR Provider 12/31/16 03/23/21 Lai Rockwell MD [address] [place] [phone] Historical LMR Provider 12/31/16 2 Marianna Vazquez MD [address] [place] [address] [facility], [place] [address] Historical LMR Provider 12/31/16 Mary Ann Marshall MD [address] [place] [address] [email or web address] Insurance Assigned Provider 06/19/24 documented as of this encounter Additional Source Comments The information contained in this document represents components of the legal health record. It is not the complete legal health record.[facility]
--- OUTSIDE RECORDS SUMMARY | 2024-10-31 11:57 | XMS_ITS | Continuity of Care Document ---
Author Organization [facility] Address [address] [facility] [address] [place], [place] Phone [phone] Care Team Providers Care Dental Appliance Repairer Name Role Phone Rolando Reese MD Care Team Information Dental Insurance Biller Unavailable ANABELLA CHAUHAN M.D. Care Team Information Rec eiver Unavailable Rolando Reese MD Primary Care Physician Unavail able Problems Active Problems Provider Date Hip DXA scan result osteopenic Anabella Chauhan M.D. Onset: 10/16/2023 Malaise and fatigue Anabella Chauhan M.D. Onse t: 10/16/2023 Osteoporosis Anabella Chauhan M.D. Onset: 1 Social History Type Date Description Comments Sex Male Sex Unknown Allergies and adverse reactions Active Allergies Criticality Reaction Severity Comments Date Aspirin Unable to assess criticality 12/16/2016 Reglan Unable to assess criticality 12/16/2016 Medications Active Medications SIG Qnty Indications Ordering Provider Date Calcitriol0.25mcg Capsules Take 1 Capsule By Mouth Every Day 90caps Anabella Chauhan M.D. 05/19/2023 Flomax0.4mg Capsules Unknown Calcium Citrate 250MG 1/d @ supper-> bid(04/2020)->1/d( 05/2023)->[id number]( 2023) Unknown Famotidine 40mg @pm Unknown 0 Vit B12 @1000/d(12/2022is h) Unknown Creon 36,000x2(double dose) Unknown History Medications Calcitriol0.5mcg Capsules 1 by mouth every day Unknown - 05/19/2023 Prilosec OTCTablets 1 tab by mouth ev dinora Unknown - 07/[id number] tapering off Un known - 07/07/2023
== END 2024-10-31 12:09 | disposition home or self-care (01) ==
LOC: HO.HSMS 10:52
PROVIDERS: PCP Internal Medicine; Visit Provider Physician Assistant Medical
DX: G47.19 Other hypersomnia (principal); R41.840 Attention and concentration deficit; R25.9 Unspecified abnormal involuntary movements; G47.33 Obstructive sleep apnea (adult) (pediatric)
CPT/HCPCS: 99214

== ENCOUNTER → 2024-10-31 10:51 | Outpatient (BNVA) | payer MEDICARE, OTHER, SELFPAY | PROVIDERS: PCP Internal Medicine; Visit Provider Physician Assistant Medical | DX: G47.19 Other hypersomnia (principal); G47.33 Obstructive sleep apnea (adult) (pediatric); R41.840 Attention and concentration deficit; R25.9 Unspecified abnormal involuntary movements | CPT/HCPCS: 99212 ==

== ENCOUNTER → 2024-11-17 19:30 | Outpatient (REF) | payer MEDICARE, OTHER, SELFPAY ==
--- OUTSIDE RECORDS SUMMARY | 2010-03-06 20:00 | XMS_ITS | Continuity of Care Document ---
Author Organization [facility] Address [address] [place] [address] Phone Care Team Providers Care Passenger Train Braker Name Role Phone Bjorn Daniels MD Unavailable Unavailable Allergies, Adverse Reactions, Alerts Substance Reaction Status Criticality METOCLOPRAMIDE HCL Active No Inform ation aspirin scratchy throat Active No Informati on Medications Medication Instructions Dosage Effective Dates (start - stop) Status Comments ACIPHEX (unknown strength) Not Available - Active Flomax 0.4 mg 24 hr Cap take 1 capsule (0.4MG) by Oral route every day 1/2 hour following the same meal each day 0.4 MG - Active calcitriol 0.25 mcg Cap take 1 capsule (0.25MCG) by Oral route every day 0.25 MCG - Active Vitamin D-3 400 unit Cap - Active calcium 500 mg Tab 2 tablets once daily 9 - Active Procedures Procedure Date Office/Outpatient Visit, Est Office/Outpatient Visit, Est X-ray Exam of Knee 4V or More 0 X-ray Exam of Knee 4V or More 0 Therapeutic Exercises Office/Outpatient Visit, Est X-ray Exam of Wrist Min 3V Therapeutic Exercises Office/Outpatient Visit, Est X-ray Exam of Wrist Min 3V Post-op Follow-up Visit Therapeutic Exercises Therapeutic Exercises Office/Outpatient Visit, Est X-ray Exam of Wrist Min 3V Therapeutic Exercises Therapeutic Exercises Pt Evaluation Therapeutic Exercises Post-op Follow-up Visit Post-op Follow-up Visit Knee arthroscopy w/microfracture 2008 Pre-op Exam MRI Jnt of Lwr Extre w/o dye Office/Outpatient Visit, Est X-ray Exam of Knee 4V or More 9 Advance Directives Directive Yes / No Effective Date File Name No Information Encounters Encounter Description Practice Location Reason(s) For Visit Diagnoses Date Provider Providers Copied on Encounter Office/Outpat ient Visit, Est [facility] , [address] [place], [place], [facility], tel:[phone] [place] [address] No Information Jeremiah Milan. [address], [place], [id number] , [place]. tel:[phone] Referring Provider: Bjorn Carolina, [address] [place], [address] . tel:[phone] Office/Outpat ient Visit, Est [facility] , [address] [place], [place], [facility], tel:[phone] [place] [address] Brent knee pain (chief complaint) No Information Jeremiah Milan. [address] [place], [place], [id number] , [place]. tel:[phone] Referring Provider: Bjorn Carolina, [address] [place], [address] . tel:[phone] [facility] , [address] [place], [place], [facility], tel:[phone] [place] [address] Left wrist fracture (chief complaint) No Information Darin Pitts. [address], [place], [id number] , [place]. tel: [phone] Referring Provider: Bjorn Carolina, [address], [place], [place], [address] [place] [address] . tel:[phone] Office/Outpat ient Visit, Est [facility] , [address], [place], [address] [place] [address] tel:[phone] [facility] Left wrist fracture (chief complaint) No Information Gilmer Lau. [address], [place], [address] [place] [address] , . tel: [phone] Referring Provider: Bjorn Carolina, [address], [place], [address] [place] [address] . tel:[phone] [facility] , [address], [place], [address] [place] [address] tel:[phone] [place] [address] Left wrist fracture (chief complaint) No Information Darin Pitts. [address], [place], [address] [place] [address] , . tel: [phone] Referring Provider: Bjorn Carolina, [address], [place], [address] [place] [address] . tel:[phone] Office/Outpat ient Visit, Est [facility] , [address], [place], [facility], tel:[phone] [place] [address] Left wrist fracture (chief complaint) No Information Gilmer Lau. [address], [place], [address] [place] [address] , . tel: [phone] Referring Provider: Bjorn Carolina, [address], [place], [address] [place] [address] . tel:[phone] [facility] , [address], [place], [facility], tel:[phone] [place] [address] No Information Jeremiah Milan. [address], [place], [address] [place] [address] , . tel: [phone] Referring Provider: Bjorn Carolina, [address], [place], [address] [place] [address] . tel:[phone] [facility] , [address], [place], [facility], tel:[phone] [facility] Left wrist fracture (chief complaint) No Information Darin Pitts. [address], [place], [address] [place] [address] , [place]. tel: [phone] Referring Provider: Bjorn Carolina, [address], [place], [address] [place] [address] . tel:[phone] [facility] , [address], [place], [facility], tel:[phone] [facility] Left wrist fracture (chief complaint) No Information Hari Mendez. [address], [place], [address] [place] [address] , [place]. tel: [phone] Referring Provider: Bjorn Carolina, [address], [place], [address] [place] [address] . tel:[phone] Office/Outpat ient Visit, Est [facility] , [address], [place], [facility], [place] tel:[phone] [facility] Left wrist fracture (chief complaint) No Information Gilmer Lau. [address], [place], [address] [place] [address] , [place]. tel: [phone] [facility] , [address], [place], [facility], tel:[phone] [facility] Left knee pain (chief complaint) No Information Hari Mendez. [address], [place], [address] [place] [address] , [place]. tel: [phone] Referring Provider: Bjorn Carolina, [address], [place], [address] [place] [address] . tel:[phone] [facility], [address], [place], [facility], tel:[phone] [facility] Left knee pain (chief complaint) No Information Darin Pitts. [address], [place], [place], [id number] , . tel: [phone] Referring Provider: Bjorn Carolina, [address], [place], [address] [place] [address] . tel:[phone] [facility], [address], [place], [facility], tel:[phone] [place] [address] Left knee pain (chief complaint) No Information Darin Ovalley. [address], [place], [place], [id number] , [place]. tel: [phone] Referring Provider: Bjorn Carolina, [address], [place], [address] [place] [address] . tel:[phone] [facility], [address], [place], [facility], tel:[phone] [place] [address] No Information Jeremiah Milan. [address], [place], [address] [place] [address] , . tel: [phone] Referring Provider: Bjorn Carolina, [address], [place], [address] [place] [address] . tel:[phone] [facility], [address], [place], [facility], tel:[phone] [place] [address] No Information Jeremiah Milan. [address], [place], [place], [id number] , . tel: [phone] Referring Provider: Bjorn Carolina, [address], [place], [address] [place] [address] . tel:[phone] [facility], [address], [place], [facility], tel:[phone] [place] [address] No Information Jeremiah Milan. [address], [place], [address] [place] [address] , . tel: [phone] Referring Provider: Bjorn Carolina, [address], [place], [address] [place] [address] . tel:[phone] Pre-op Exam [facility] , [address], [address] tel:[phone] [place] [address] No Information Jeremiah Milan. [address] tel: [phone] Referring Provider: Bjorn Carolina, [address] [place] [address] . tel:[phone] [facility] , [address] tel:[phone] [place] [address] No Information Jeremiah Milan. [address] [place] [address] , . tel: [phone] Referring Provider: Bjorn Carolina, [address] [place] [address] . tel:[phone] Office/Outpat ient Visit, Est [facility] , [address] tel:[phone] [place] [address] Left knee pain (chief complaint) No Information Jeremiah Milan. [address] [place] [address] , . tel: [phone] [facility] , [address] tel:[phone] [place] [address] No Information Jeremiah Milan. [address] [place] [address] , . tel: [phone] Family History Family Member Type Diagnosis Age At Onset Problem (finding) Family history of Anest hetic problems Payers Payer name Insurance type Covered green party ID Authoriza tion(s) [place] EPO Open Option [place] [id number] Social History Type Description Quantity Date Captured Comments Sex Male Smoking Status No Information Chief Complaint And Reason For Visit No Information Reason For Referral Reason For Referral No Information History Of Present Illness Encounter Date Complaint History Of Prese nt Illness No Information Functional Status Date Functional Assessmen t No Information Instructions Date Instruction Additional Infor mation No Information Assessments Type Assessment Date No Information Patient Care Teams Name Effective Dates (start - stop) Status Members No Information
--- OUTSIDE RECORDS SUMMARY | 2024-11-17 21:09 | XMS_ITS | Encounter Summary ---
Author Organization [facility] Address [address] [place] [address] [place] [address] Phone Care Team Providers Care Telesales Manager Name Role Phone Marquis Yao MD Unavailable + Declan Davey MD Unavailable [phone] Mary Ann Marshall MD Unavailable Giselle Willard PA-C Unavailable [phone] Lai Rockwell MD Unavailable Marianna Vazquez MD Unavailable Mary Ann Marshall MD Primary Care Provider Mary Ann Marshall MD Unavailable [phone] Encounter Details Date Type Department Care Team (Late st Contact Info) Description 03/02/2020 Transcribe Orders [address] Valle SHAE [phone] Anabella Chauhan MD [address] [facility], [address] [place] [address] Fatigue, unspecified type (Primary Dx); Other specified disorders of bone density and structure, other site Social History Tobacco Use Types Packs/Day Years Used Date Smoking Tobacco: Never Smokeless Tobacco: Never Alcohol Use Standard Drinks/Week Comments No 0 (1 standard drink = 0.6 oz pur e alcohol) Sex and Gender Information Value Date Recorded Sex Assigned at Male 08/04/2023 2:25 AM EDT Legal Sex Male 9:54 PM EDT Gender Identity Male 08/04/2023 2:25 AM EDT Sexual Orientation Straight 08/04/2023 2: 25 AM EDT documented as of this encounter Plan of Treatment Upcoming Encounters Date Type Department Care Team (Late st Contact Info) Description 12/12/2024 10:30 AM EDT Office Visit [facility] [address] [facility] 3rd Floor, [address] [place] [address] Judi Kat, ELLIS [address] [facility], [address] [place] [address] 04/06/2025 2:45 PM EST Appointment [facility], Bone Density - [address] [address] Anabella Chauhan MD [address] [place] [address], [address] [place] [address] documented as of this encounter Results * Basic metabolic panel (04/09/2020 8:10 AM EST) SODIUM 141 133 - 146 mmol/L [facility] CHLORIDE 103 96 - 108 mmol/L [facility] POTASSIUM 4.0 3.3 - 5.1 mmol/L [facility] CO2 29 21 - 35 mmol/L [facility] BUN 17 6 - 19 mg/dL [facility] CREATININE 1.00 0.5 - 1.5 mg/dL [facility] GLUCOSE 88 70 - 99 mg/dL [facility] CALCIUM 9.4 8.4 - 10.3 mg/dL [facility] EGFR 79 >59 mL/min/1.7 3m2 [facility] Comment:Estimated glomerular filtration rate calculated using the CKD-EPI equation. ANION GAP 13 10 - 20 mmol/L [facility] Blood 04/09/2020 8:10 AM EST 04/09/2020 8:13 AM EST us Anabella Chauhan MD LAB BLOOD ORDERABLES Final R esult Performing Organization Address City/[facility]/ZIP Co de Phone Number [address] [address] * Calcium, 24 hour urine (04/09/2020 6:30 AM EST) URINE CALCIUM 7.3 mg/dL [facility] CALCIUM OUTPUT 139 100 - 300 mg/total output [facility] Urine (Urine) 04/09/2020 6:3 0 AM EST 04/09/2020 8:14 AM EST Anabella Chauhan MD URINE ORDERABLES Final Resul t Performing Organization Address [facility] Co de Phone Number [address] [address] documented in this encounter Visit Diagnoses Diagnosis Fatigue, unspecified type- Primary Other specified disorders of bone density and structure, other site documented in this encounter Additional Health Concerns Infection Onset Date Last Indicated Resolved Time CoV-Risk Comment:Per Ambulatory Triage Form 2021 12/03/202112/14 1:22 AM EDT Assessment Noted Time PHQ-2 Depression Total Score: 0 11/12/19 8:42 AM EDT documented as of this encounter Care Teams Telesales Manager Relationship Specialty Start Date End Date Mary Ann Marshall MD [address] [place] [address], 2nd [place] [address] PCP - General Internal Medicine 03/10/17 Marquis Yao MD [address] [place] [address] [email or web address] Historical LMR Provider 12/31/16 03/23/21 Declan Davey MD [address] [place] [address] [email or web address] Historical LMR Provider 12/31/16 03/23/21 Mary Ann Marshall MD [address] [place] [address] Historical LMR Provider 12/31/16 Giselle Willard PA-C [address] [place] [address] [facility], [place] [address] [email or web address] Historical LMR Provider 12/31/16 03/23/21 Lai Rockwell MD [address] [place] [phone] Historical LMR Provider 12/31/16 2 Marianna Vazquez MD [address] [place] [address] Orthopedics [facility] Sports [facility], [place] [address] Historical LMR Provider 12/31/16 Mary Ann Marshall MD [address] [place] [address] Insurance Assigned Provider 06/19/24 documented as of this encounter Additional Source Comments The information contained in this document represents components of the legal health record. It is not the complete legal health record.[facility]
--- OUTSIDE RECORDS SUMMARY | 2024-11-17 21:09 | XMS_ITS | Continuity of Care Document ---
Author Organization [facility] Address [address] [facility] [address] [place], [place] Phone [phone] Care Team Providers Care Kelp Gatherer Name Role Phone Rolando Reese MD Care Team Information Manager Money Unavailable ANABELLA CHAUHAN M.D. Care Team Information [...] Calcium Citrate 250MG 1/d @ supper-> bid(04/2020)->1/d( 05/2023)->[id number]( 2023) Unknown Famotidine 40mg @pm Unknown 0 Vit B12 @1000/d(12/2022is h) Unknown Creon 36,000x2(double dose) Unknown History Medications Calcitriol0.5mcg Capsules 1 by mouth every day Unknown - 05/19/2023 Prilosec OTCTablets 1 tab by mouth ev dinora Unknown - 07/[id number] tapering off Un known - 07/07/2023
--- OUTSIDE RECORDS SUMMARY | 2024-11-17 21:09 | XMS_ITS | Encounter Summary ---
Author Organization [facility] Address [address] [place] [address] [place] [address] Phone Care Team Providers Care Irrigationist Designer Name Role Phone Marquis Yao MD Unavailable + Declan Davey MD Unavailable [phone] Mary Ann Marshall MD Unavailable Giselle Willard PA-C Unavailable [phone] Lai Rockwell MD Unavailable Marianna Vazquez MD Unavailable Mary Ann Marshall MD Primary Care Provider Mary Ann Marshall MD Unavailable [phone] Encounter Details Date Type Department Care Team (Late st Contact Info) Description 03/10/2017 Transcribe Orders [facility] [address] [place] [address] Dr Valle SHAE [phone] Anabella Chauhan MD [address] [facility], [address] [place] [address] [email or web address] Osteopenia, unspecified location (Primary Dx) Social History [...] Description 12/12/2024 10:30 AM EDT Office Visit [facility] [address] [facility] 3rd Floor, [address] [place] [address] Judi Kat, ELLIS 22 [facility], [address] [place] [address] [email or web address] 04/06/2025 2:45 PM EST Appointment [facility], Bone Density - [address] [address] Anabella Chauhan MD [address] [place] [address] [address] [place] [address] [email or web address] documented as of this encounter Results * Testosterone, total (03/10/2017 8:41 AM EST) TESTOSTERONE 403 72 - 623 ng/dL [facility] Blood 03/10/2017 8:41 AM EST 03/10/2017 2:33 PM EST Anabella Chauhan MD LAB BLOOD ORDERABLES Final R esult [address] [address] * (ABNORMAL) Testosterone bioavailable, serum (03/10/2017 8:41 AM EST) BIOAVAIL TESTOST 29(L) 40 - 168 ng/dL [facility] Comment: (NOTE) ADDITIONAL INFORMATION Testing performed by Differential Precipitation. This test was developed and its performance characteristics determined by [facility] in a manner consistent with CLIA requirements. This test has not been cleared or approved by the U.S. Food and Drug Administration. TESTOSTERONE, TOTAL 394 240 - 950 ng/dL [facility] Comment: (NOTE) ADDITIONAL INFORMATION Testing performed by Liquid Chromatography-Tandem Mass Spectrometry (LC-MS/MS). This test was developed and its performance characteristics determined by [facility] in a manner consistent with CLIA requirements. This test has not been cleared or approved by the U.S. Food and Drug Administration. Blood 03/10/2017 8:41 AM EST 03/10/2017 8:44 AM EST Anabella Chauhan MD LAB BLOOD ORDERABLES Final R esult Performing Organization Address City/[facility]/ZIP Co de Phone Number [facility] [place] [address] * FSH (03/10/2017 8:41 AM EST) FSH 5.2 IU/L [facility] Comment:MALE: 1.5-12.5 mIU/m L Blood 03/10/2017 8:41 AM EST 03/10/2017 2:33 PM EST Anabella Chauhan MD LAB BLOOD ORDERABLES Final R esult Performing Organization Address City/[facility] Co de Phone Number [address] [address] documented in this encounter Visit Diagnoses Diagnosis Osteopenia, unspecified location- Primary documented in this encounter Additional Health Concerns Infection Onset Date Last Indicated Resolved Time CoV-Risk Comment:Per Ambulatory Triage Form 2021 12/03/202112/14 1:22 AM EDT documented as of this encounter Care Teams Irrigationist Designer Relationship Specialty Start Date End Date Mary Ann Marshall MD [address] [place] [address], 2nd [place] [address] PCP - General Internal Medicine 03/10/17 Marquis Yao MD [address] [place] [address] [email or web address] Historical LMR Provider 12/31/16 03/23/21 Declan Davey MD [address] [place] [email or web address] Historical LMR Provider 12/31/16 03/23/21 Mary Ann Marshall MD [address] [place] [address] Historical LMR Provider 12/31/16 Giselle Willard PA-C [address] [place] [address] Orthopedics & Sports [facility], [place] [address] Historical LMR Provider 12/31/16 03/23/21 Lai Rockwell MD [address] [place] [phone] Historical LMR Provider 12/31/16 Marianna Pollard MD [address] [place] [address] [facility], [place] [address] Historical LMR Provider 12/31/16 Mary Ann Marshall MD [address] [place] [address] [email or web address] Insurance Assigned Provider 06/19/24 documented as of this encounter Additional Source Comments The information contained in this document represents components of the legal health record. It is not the complete legal health record.[facility]
--- OUTSIDE RECORDS SUMMARY | 2024-11-17 21:09 | XMS_ITS | Encounter Summary ---
Author Organization [facility] Address [address] [facility] [address] [place] [address] Phone Care Team Providers Care Snow Blower Name Role Phone Marshall, Mary Ann A MD Unavailable [phone] Marshall, Mary Ann A MD Primary Care Provider [phone] Marshall, Mary Ann A MD Unavailable [phone] Encounter Details Date Type Department Care Team (Late st Contact Info) Description 12/07/2023 Procedure Pass Echo Lab [facility] [address] [place] [address] Social History Tobacco Use Types Packs/Day Years Used Date Smoking Tobacco: Never Smokeless Tobacco: Never Alcohol Use Standard Drinks/Week Comments No 0 (1 standard drink = 0.6 oz pur e alcohol) Child or Family Care Answer Date Record ed Do you have problems with on e of the following making it difficult for you to work, study, or receive health care? No 11/10/2022 Education Answer Date Recorded Are you interested in more education? Not on suzie e 11/13/2023 Are you concerned about learning? Not on file 11/13/2023 No 11/13/2023 No 11/13/2023 Food Answer Date Recorded Within the past 6 months we worried whether our food would run out before we got money to buy more. Never True 11/10/2022 Within the past 6 months the food we bought just didn't last and we didn't have enough money to get more. Never True Residential Stability Answer Date Recor ded What is your housing situation today? I have tiara noriega 11/10/2022 How many times have you move d in the past 12 months? Zero (I did not move) 11/10/2022 Paying for Meds Answer Date Recorded Do you have trouble paying for medicines? No 11/10/2022 Paying Utility Bills Answer Date Record ed Do you have trouble paying your heating or elect ricity bill? No 11/10/2022 Transportation Answer Date Recorded Has the lack of transportati on kept you from medical appointments or from getting medications? No 11/10/2022 Unemployment Answer Date Recorded Are you currently unemployed or working on a part-time or temporary basis, and looking for work? No 11/11/2021 Digital Access Answer Date Recorded No 11/10/2022 Yes 11/10/2022 Do you have reliable internet access at home? Ye s 11/10/2022 Do you have a device (e.g., phone, tablet, computer) with a working camera? Yes 11/10/2022 Intimate Partner Violence Answer Date R ecorded Are you denied basic needs s uch as food, clothing, or medical care? No 08/04/2023 In the past 12 months have y ou been in a relationship with a person who hurts, threatens, or tries to control you? No 08/04/2023 Are you denied basic needs s uch as food, clothing, or medical care? No 08/04/2023 In the past 12 months have y ou been in a relationship with a person who hurts, threatens, or tries to control you? No 08/04/2023 Sex and Gender Information Value Date Recorded Sex Assigned at Male 08/04/2023 2:25 AM EDT Legal Sex Male 9:54 PM EDT Gender Identity Male 08/04/2023 2:25 AM EDT Sexual Orientation Straight 08/04/2023 2: 25 AM EDT documented as of this encounter Plan of Treatment Upcoming Encounters Date Type Department Care Team (Late st Contact Info) Description 12/12/2024 10:30 AM EDT Office Visit [facility] [address] [place] [address] 3rd Floor, [address] [place] [address] Judi Kat, ELLIS 22 [facility], [address] [place] [address] 04/06/2025 2:45 PM EST Appointment [facility], Bone Density - [facility] [address] [place] [address] Anabella Chauhan MD [address] [facility], [address] [place] [address] documented as of this encounter Visit Diagnoses Not on filedocumented in this encounter Additional Health Concerns Assessment Noted Time PHQ-2 Depression Total Score: 0 11/11/19 23 5:01 PM EDT documented as of this encounter Care Teams Snow Blower Relationship Specialty Start Date End Date Mary Ann Marshall MD [address] [place] [address] PCP - General Internal Medicine 03/10/17 Mary Ann Marshall MD [address] [place] [address] Historical LMR Provider 12/31/16 Mary Ann Marshall MD [address] [place] [address] Insurance Assigned Provider 06/19/24 documented as of this encounter Additional Source Comments The information contained in this document represents components of the legal health record. It is not the complete legal health record.[facility]
--- OUTSIDE RECORDS SUMMARY | 2024-11-17 21:09 | XMS_ITS | Encounter Summary ---
Author Organization [facility] Address [address] [place] [address] Phone Care Team Providers Care Database Operator Name Role Phone Marquis Yao MD Unavailable + Declan Davey MD Unavailable [phone] Mary Ann Marshall MD Unavailable [phone] Giselle Willard PA-C Unavailable [phone] Lai Rockwell MD Unavailable Marianna Vazquez MD Unavailable Mary Ann Marshall MD Primary Care Provider [phone] Mary Ann Marshall MD Unavailable [phone] Encounter Details Date Type Department Care Team (Late st Contact Info) Description 08/17/2019 Ancillary Orders Virtual Department [address] [place] [address] [place] [address] [phone] [email or web address] [email or web address] Social History Tobacco Use Types Packs/Day Years [...] Description 12/12/2024 10:30 AM EDT Office Visit [facility] [address] [facility] 3rd Floor, [address] [place] [address] Judi Kat, ELLIS 22 [facility], [address] [place] [address] [email or web address] 04/06/2025 2:45 PM EST Appointment [facility], [facility] [address] [place] [address] Anabella Chauhan MD [address] [place] [address], [address] [place] [address] documented as of this encounter Results * US Kidneys and Bladder (08/17/2019 3:50 PM EDT) Anatomical Region Laterality Modality Abdomen, Kidney Ultrasound 08/17/2019 4:04 PM EDT Addenda Addendum by Mg Resendiz MD on 08/22/2019 8:41 AM EDT COMPARISON: March 10, 2016. CT June 08, 2015. 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 Kidney measured at approximately 12 cm in length. There is new hydronephrosis which appears more pronounced pre-void >>> than <<< post-void. Small stone present in the left-sided moiety seen previously is not detected today. No masses are seen. Bladder: Pre-void volume is 390 cc with a 110 cc or 28% post-void residual. No bladder stone is seen. There is wall irregularity consistent with bladder outlet obstruction. This may account for the hydronephrosis as well. Other: A small simple-appearing cyst is suggested at the upper portion of the prostate near the junction with the seminal vesicles. >>> This appears <<< to be present on the prior CT as well. IMPRESSION: >>> New hydronephrosis without stones. <<<. Findings consistent with bladder outlet obstruction which might account for the hydronephrosis. POS [id number] Edited by: Mirian Flores on 08/18/2019 8:24 PM Impressions 08/17/2019 4:12 PM EDT New no major wound no evidence or hydronephrosis or without stones. Findings consistent with bladder outlet obstruction which might account for the hydronephrosis. POS [id number] Narrative 08/17/2019 4:12 PM EDT COMPARISON: March 10, 2016. CT June 08, 2015. 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 Kidney measured at approximately 12 cm in length.. There is new hydronephrosis which appears more pronounced pre-void and post-void. Small stone present in the left-sided moiety seen previously is not detected today. No masses are seen. Bladder: Pre-void volume is 390 cc with a 110 cc or 28 point percent post-void residual. No bladder stone is seen. There is wall irregularity consistent with bladder outlet obstruction. This may account for the hydronephrosis as well as. Other: A small simple appearing cyst is suggested at the upper portion of the prostate near the junction with the seminal vesicles. Superior to be present on the prior CT as well. Procedure Note Mg Resendiz MD - 08/17/2019 COMPARISON: March 10, 2016. CT June 08, 2015. 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 Kidney measured at approximately 12 cm inlength.. There is new hydronephrosis which appears more pronouncedpre-void and post-void. Small stone present in the left-sided moiety seenpreviously is not detected today. No masses are seen. Bladder: Pre-void volume is 390 cc with a 110 cc or 28 point percentpost-void residual. No bladder stone is seen. There is wall irregularityconsistent with bladder outlet obstruction. This may account for thehydronephrosis as well as. Other: A small simple appearing cyst is suggested at the upper portion ofthe prostate near the junction with the seminal vesicles. Superior to bepresent on the prior CT as well. IMPRESSION: New no major wound no evidence or hydronephrosis or without stones.Findings consistent with bladder outlet obstruction which might accountfor the hydronephrosis. POS [id number] us Desi ARMENTA IMG US RENAL Edited Res ult - Final documented in this encounter Visit Diagnoses Diagnosis Flank pain Abdominal pain, unspecified site Flank pain Abdominal pain, unspecified site documented in this encounter Additional Health Concerns Infection Onset Date Last Indicated Resolved Time CoV-Risk Comment:Per Ambulatory Triage Form 2021 12/03/202112/14 1:22 AM EDT Assessment Noted Time PHQ-2 Depression Total Score: 0 11/12/19 8:42 AM EDT documented as of this encounter Care Teams Database Operator Relationship Specialty Start Date End Date Mary Ann Marshall MD [address] [place] [phone] [email or web address] PCP - General Internal Medicine 03/10/17 Marquis Yao MD [address] [place] [address] [email or web address] Historical LMR Provider 12/31/16 03/23/21 Declan Davey MD [address] [place] [address] [email or web address] Historical LMR Provider 12/31/16 03/23/21 Mary Ann Marshall MD [address] [place] [address] Historical LMR Provider 12/31/16 Giselle Willard PA-C [address] [place] [address] [facility] [place] [address] Historical LMR Provider 12/31/16 03/23/21 Lai Rockwell MD [address] [place] [phone] Historical LMR Provider 12/31/16 2 Marianna Vazquez MD [address] [place] [address] [facility], [place] [address] Historical LMR Provider 12/31/16 Mary Ann Marshall MD [address] [place] [address] Insurance Assigned Provider 06/19/24 documented as of this encounter Additional Source Comments The information contained in this document represents components of the legal health record. It is not the complete legal health record.[facility]
--- OUTSIDE RECORDS SUMMARY | 2024-11-17 21:09 | XMS_ITS | Encounter Summary ---
Author Organization [facility] Address [address] [place] [address] [place] [address] Phone Care Team Providers Care Bus Operator Name Role Phone Marshall, Mary Ann A MD Unavailable [phone] Marshall, Mary Ann A MD Primary Care Provider [phone] Marshall, Mary Ann A MD Unavailable [phone] Encounter Details Date Type Department Care Team (Late st Contact Info) Description 10/30/2022 Transcribe Orders [facility] [address] [place] [address] Lyndsay Barron PA-C [address] [place] [address] [email or web address] Social History Tobacco Use Types Packs/Day Years Used Date Smoking Tobacco: Never Smokeless Tobacco: Never Alcohol Use Standard Drinks/Week Comments No 0 (1 standard drink = 0.6 oz pur e alcohol) Child or Family Care Answer Date Record ed Do you have problems with on e of the following making it difficult for you to work, study, or receive health care? No 11/11/2021 Education Answer Date Recorded Are you interested in help w ith more adult education (for example, completing high school, GED, job training, learning the Uz[place] language, technical skills, or developing parenting skills)? No 11/11/2021 Food Answer Date Recorded Within the past 6 months we worried whether our food would run out before we got money to buy more. Never True 11/11/2021 Within the past 6 months the food we bought just didn't last and we didn't have enough money to get more. Never True Residential Stability Answer Date Recor ded What is your housing situation today? I have tiara noriega 11/11/2021 How many times have you move d in the past 12 months? Zero (I did not move) 11/11/2021 Paying for Meds Answer Date Recorded Do you have trouble paying for medicines? No 11/11/2021 Paying Utility Bills Answer Date Record ed Do you have trouble paying your heating or elect ricity bill? No 11/11/2021 Transportation Answer Date Recorded Has the lack of transportati on kept you from medical appointments or from getting medications? No 11/11/2021 Unemployment Answer Date Recorded Are you currently unemployed or working on a part-time or temporary basis, and looking for work? No 11/11/2021 Digital Access Answer Date Recorded No 08/11/2022 No 08/11/2022 Reliable internet access at home? Not on file 08/11/2022 Device with a working camera? Not on file Sex and Gender Information Value Date Recorded Sex Assigned at Male 08/04/2023 2:25 AM EDT Legal Sex Male 9:54 PM EDT Gender Identity Male 08/04/2023 2:25 AM EDT Sexual Orientation Straight 08/04/2023 2: 25 AM EDT documented as of this encounter Plan of Treatment Upcoming Encounters Date Type Department Care Team (Late st Contact Info) Description 12/12/2024 10:30 AM EDT Office Visit [facility] [address] [place] [address] 3rd Floor, [address] [place] [address] Judi Kat, ELLIS [address] [facility], [address] [place] [address] [email or web address] 04/06/2025 2:45 PM EST Appointment [facility], Bone Density - [address] [address] Anabella Chauhan MD [address] [place] [address], [address] [place] [address] [email or web address] documented as of this encounter Visit Diagnoses Not on filedocumented in this encounter Additional Health Concerns Assessment Noted Time PHQ-2 Depression Total Score: 0 11/12/19 22 8:21 AM EDT documented as of this encounter Care Teams Bus Operator Relationship Specialty Start Date End Date Mary Ann Marshall MD [address] [place] [address] [email or web address] PCP - General Internal Medicine 03/10/17 Mary Ann Marshall MD [address] [place] [address] [email or web address] Historical LMR Provider 12/31/16 Mary Ann Marshall MD [address] [place] [address] [email or web address] Insurance Assigned Provider 06/19/24 documented as of this encounter Additional Source Comments The information contained in this document represents components of the legal health record. It is not the complete legal health record.[facility]
--- OUTSIDE RECORDS SUMMARY | 2024-11-17 21:09 | XMS_ITS | Encounter Summary ---
Author Organization [facility] Address [address] [place] [address] [place] [address] Phone Care Team Providers Care Chief Quality Officer Name Role Phone Marquis Yao MD Unavailable + Declan Davey MD Unavailable [phone] Mary Ann Marshall MD Unavailable Gieslle Willard PA-C Unavailable [phone] Lai Rockwell MD Unavailable [phone] Marianna Vazquez MD Unavailable Mary Ann Marshall MD Primary Care Provider [phone] Mary Ann Marshall MD Unavailable Encounter Details Date Type Department Care Team (Late st Contact Info) Description 02/17/2019 Ancillary Orders Virtual Department [address] [place] [address] Anabella Chauhan MD [address] [facility], [address] [place] [address] Other specified disorders of bone density and [...] Description 12/12/2024 10:30 AM EDT Office Visit [facility] [address] [facility] 3rd Floor, [address] [place] [address] Judi Kat, ELLIS [address] [facility], [address] [place] [address] [email or web address] 04/06/2025 2:45 PM EST Appointment [facility], Bone Density - [facility] [address] [place] [address] Anabella Chauhan MD [address] [facility], [address] [place] [address] [email or web address] documented as of this encounter Results * BD DXA AXIAL (SPINE) WITH HIP (04/26/2019 8:17 AM EST) Anatomical Region Laterality Modality Bone Density Bone Density 04/26/2019 8:46 AM EST Impressions 04/26/2019 8:52 AM EST Ongoing osteopenia at all 3 measured sites with slight increase in lumbar BMD but no significant change in either hip. POS -[id number] Narrative 04/26/2019 8:52 AM EST This is a 63-year-old male who reports no proceed height loss. No history of steroid use nor hormone therapy. Currently on daily calcium supplementation.. Comparison is made to 04/22/2017. Evaluation of the lumbar spine and hips was performed and felt to be technically adequate. Total bone mineral density in the L1-L4 vertebral bodies was calculated at 0.941 gm/cm2 with a T score of -1.4, and a Z-score of -0.7. This falls within the WHO classification of osteopenia. This represents a 5.8% increase density since 2018. Density of the right femoral NECK is 0.674gm/cm2, T score -1.9, Z score-0.9. Density of the TOTAL right proximal femur is 0.904 gm/cm2; T-score -0.9; Z-score -0.4. This falls within the WHO classification of osteopenia. This is not a significant change from 2018. Density of the left femoral NECK is 0.685gm/cm2, T score -1.8, Z score-0.8. Density of the TOTAL left proximal femur is 0.868 gm/cm2; T-score -1.1; Z-score -0.6. This falls within the WHO classification of osteopenia. This is not a significant change from 2018. Procedure Note Rj Mack MD - 04/26/2019 This is a 63-year-old male who reports no proceed height loss. No history of steroid use nor hormone therapy. Currently on daily calcium supplementation.. Comparison is made to 04/22/2017. Evaluation of the lumbar spine and hips was performed and felt to betechnically adequate. Total bone mineral density in the L1-L4 vertebral bodies was calculated at0.941 gm/cm2 with a T score of -1.4, and a Z-score of -0.7. This falls within the WHO classification of osteopenia. This represents a 5.8% increase density since 2018. Density of the right femoral NECK is 0.674gm/cm2, T score -1.9, Zscore-0.9. Density of the TOTAL right proximal femur is 0.904 gm/cm2; T-score -0.9;Z-score -0.4. This falls within the WHO classification of osteopenia. This is not a significant change from 2018. Density of the left femoral NECK is 0.685gm/cm2, T score -1.8, Zscore-0.8. Density of the TOTAL left proximal femur is 0.868 gm/cm2; T-score -1.1;Z-score - 0.6. This falls within the WHO classification of osteopenia. This is not a significant change from 2018. IMPRESSION: Ongoing osteopenia at all 3 measured sites with slight increase in lumbarBMD but no significant change in either hip. POS -[id number] Anabella Chauhan MD IMG BD BONE DENSITY DEXA Fin al Result documented in this encounter Visit Diagnoses Diagnosis Other specified disorders of bone density and structure, other site Other specified disorders of bone density and structure, other site documented in this encounter Additional Health Concerns Infection Onset Date Last Indicated Resolved Time CoV-Risk Comment:Per Ambulatory Triage Form 2021 12/03/202112/14 1:22 AM EDT Assessment Noted Time PHQ-2 Depression Total Score: 0 11/12/19 8:42 AM EDT documented as of this encounter Care Teams Chief Quality Officer Relationship Specialty Start Date End Date Mary Ann Marshall MD [address] [place] [address] PCP - General Internal Medicine 03/10/17 Marquis Yao MD [address] [place] [address] [email or web address] Historical LMR Provider 12/31/16 03/23/21 Declan Davey MD [address] [place] [address] [email or web address] Historical LMR Provider 12/31/16 03/23/21 Mary Ann Marshall MD [address] [place] [address] Historical LMR Provider 12/31/16 Giselle Willard PA-C [address] [place] [address] [facility], [place] [address] Historical LMR Provider 12/31/16 03/23/21 Lai Rockwell MD [address] [place] [address] Historical LMR Provider 12/31/16 2 Marianna Vazquez MD [address] [place] [address] [facility], [facility] [place] [address] [email or web address] Historical LMR Provider 12/31/16 Mary Ann Marshall MD [address] [place] [address], 2nd [place] [address] [email or web address] Insurance Assigned Provider 06/19/24 documented as of this encounter Additional Source Comments The information contained in this document represents components of the legal health record. It is not the complete legal health record.[facility]
--- OUTSIDE RECORDS SUMMARY | 2024-11-17 21:09 | XMS_ITS | Encounter Summary ---
Author Organization [facility], Address [address] [place] [address] Phone Care Team Providers Care Manager Endoscopy Name Role Phone Mary Ann Marshall MD Primary Care Provider [phone] Encounter Details Date Type Department Care Team (Late st Contact Info) Description 11/10/2023 Documentation Only [facility] [address] [place] [address] Alice Andujar [address] [place] [phone] Social History Tobacco Use Types Packs/Day Years [...] Visit [facility] [address] Neel EDWARD [address] [place] [phone] Ermias Shine MD [address] [place] [address] [place] [address] documented as of this encounter Visit Diagnoses Not on filedocumented in this encounter Care Teams Manager Endoscopy Relationship Specialty Start Date End Date Mary Ann Marshall MD [address] [place] [address], 2nd [place] [address] PCP - General Internal Medicine 08/26/23 documented as of this encounter
--- OUTSIDE RECORDS SUMMARY | 2024-11-17 21:09 | XMS_ITS | Encounter Summary ---
Author Organization [facility] Address [address] [facility] [address] [place] [address] Phone Care Team Providers Care Tableau Architect Name Role Phone Marquis Yao MD Unavailable + Declan Davey MD Unavailable [phone] Mary Ann Marshall MD Unavailable Giselle Willard PA-C Unavailable Lai Rockwell MD Unavailable [phone] Marianna Vazquez MD Unavailable Mary Ann Marshall MD Primary Care Provider Mary Ann Marshall MD Unavailable [phone] Encounter Details Date Type Department Care Team (Late st Contact Info) Description 10/28/2018 Ancillary Orders Non-Invasive Cardiology [address] [place] [address] Mary Ann Marshall MD [address] [facility], 2nd [place] [address] Abnormal stress test Social History Tobacco Use Types Packs/Day Years [...] Description 12/12/2024 10:30 AM EDT Office Visit [facility] [address] [facility] 3rd Floor, [address] [place] [address] Judi Kat, ELLIS [address] [facility], [address] [place] [address] [email or web address] 04/06/2025 2:45 PM EST Appointment [facility], Bone Density [facility] [place] [address] [place] [address] Anabella Chauhan MD [address] [facility], [address] [place] [address] documented as of this encounter Results * NC Stress Result for Nuclear Stress Test (10/28/2018 12:41 PM EDT) Max BP Systolic 166 mmHg [facility] Max BP Diastolic 70 mmHg [facility] Max HR 150 BPM [facility] Resting HR 61 BPM [facility] Resting BP Systolic 110 mmHg [facility] Resting BP Diastolic 62 mmHg [facility] Peak METS 13.4 METS [facility] Peak HR 148 BPM [facility] Anatomical Region Laterality Modality Heart Other 10/28/2018 11:3 0 AM EDT 10/28/2018 12:40 PM EDT Narrative 10/30/2018 7:07 AM EDT This report represents only part of the nuclear stress test - sestamibi images will be reported separately by the Dept. of Radiology. Stress Findings Sestamibi images will be reported out separately by the Department of Radiology. This report represents only part of the nuclear stress test. Correlation of the imaging and electrocardiographic results is necessary. Since both tests have a percentage of false negatives/positives, both results must be correlated with the patient's other clinical date. Response to Stress The patient exercised for minutes seconds, achieving 13.4 METS at peak exercise. Baseline blood pressure was 110/62 mmHg, and baseline heart rate was 61 bpm. The patient achieved a peak heart rate of 148 bpm, which is% of their maximum predicted heart rate. Patient exercised for 10:32 minutes on a standard [place] protocol achieving 13.4 METs and 94% MPHR (150 BPM). The test was terminated due to fatigue. SUMMARY: 1. RESTING ECG: Normal sinus rhythm 2. EXERCISE ECG: With exercise noted to have uplsoping ST depressions in V5-V6, these improved in early recovery 3. SYMPTOMS: No chest pain 4. PHYSIOLOGY: Appropriate exercise physiology. Resting heart rate of 61bpm cleopatra to a max heart rate of 150 bpm, this represents 94% MPHR. Resting BP of 110/62 cleopatra to a max BP of 166/70. Vital signs stable and returned to baseline prior to discharge from the lab. Achieved 13.4 METs consistent with good functional capacity for age. 5. ARRHYTHMIA: No ectopy CONCLUSION: Normal ECG portion of exercise stress test without ECG changes meeting criteria for ischemia and without symptoms concerning for angina. Appropriate exercise physiology. Good functional capacity. Nuclear images and report to follow. See attached stress report for full details. Emil Rendon APRN with Dr. Landin . us Mary Ann Marshall MD CV NM CARDIAC Final Result documented in this encounter Visit Diagnoses Diagnosis Abnormal stress test Other nonspecific abnormal cardiovascular system function study Abnormal stress test Other nonspecific abnormal cardiovascular system function study documented in this encounter Additional Health Concerns Infection Onset Date Last Indicated Resolved Time CoV-Risk Comment:Per Ambulatory Triage Form 2021 12/03/202112/14 1:22 AM EDT Assessment Noted Time PHQ-2 Depression Total Score: 0 04/27/19 19 2:39 PM EST documented as of this encounter Care Teams Tableau Architect Relationship Specialty Start Date End Date Mary Ann Marshall MD [address] [place] [address], 2nd [place] [address] PCP - General Internal Medicine 03/10/17 Marquis Yao MD [address] [place] [address] [email or web address] Historical LMR Provider 12/31/16 03/23/21 Declan Davey MD [address] [place] [address] [email or web address] Historical LMR Provider 12/31/16 03/23/21 Mary Ann Marshall MD [address] [place] [address] Historical LMR Provider 12/31/16 Giselle Willard PA-C [address] [place] [address] [facility], [place] [address] Historical LMR Provider 12/31/16 03/23/21 Lai Rockwell MD [address] [place] [phone] Historical LMR Provider 12/31/16 Marianna Pollard MD [address] [place] [address] [facility], [place] [address] Historical LMR Provider 12/31/16 Mary Ann Marshall MD [address] [place] [address] Insurance Assigned Provider 06/19/24 documented as of this encounter Additional Source Comments The information contained in this document represents components of the legal health record. It is not the complete legal health record.[facility]
--- OUTSIDE RECORDS SUMMARY | 2024-11-17 21:09 | XMS_ITS | Encounter Summary ---
Author Organization [facility], Address [address] [place] [address] Phone Care Team Providers Care Director It Project Name Role Phone Mary Ann Marshall MD Primary Care Provider [phone] Encounter Details Date Type Department Care Team (Late st Contact Info) Description 08/26/2023 Documentation Only [facility] [address] [place] [address] [place], [place] [address] [place] [phone] Social History Tobacco Use Types Packs/Day Years [...] Visit [facility] [address] [address] Neel EDWARD [address] [place] [phone] Ermias Shine MD [address] [place] [address] [place] [address] documented as of this encounter Visit Diagnoses Not on filedocumented in this encounter Care Teams Director It Project Relationship Specialty Start Date End Date Mary Ann Marshall MD [address] [place] [address], [place] [address] PCP - General Internal Medicine 08/26/23 documented as of this encounter
--- OUTSIDE RECORDS SUMMARY | 2024-11-17 21:09 | XMS_ITS | Encounter Summary ---
Author Organization [facility], Address [address] [place] [address] Phone Care Team Providers Care Textile Examiner Name Role Phone Mary Ann Marshall MD Primary Care Provider [phone] Encounter Details Date Type Department Care Team (Late st Contact Info) Description 02/02/2024 Documentation Only [facility] [address] [place] [address] Patricia Forbes [address] [place] [phone] Social History Tobacco Use Types Packs/Day Years [...] Visit [facility] [address] [place] [address] Ermias Shine MD [address] [facility] [place] [phone] documented as of this encounter Visit Diagnoses Not on filedocumented in this encounter Care Teams Textile Examiner Relationship Specialty Start Date End Date Mary Ann Marshall MD [address] [place] [address], 2nd [place] [address] PCP - General Internal Medicine 08/26/23 documented as of this encounter
--- OUTSIDE RECORDS SUMMARY | 2024-11-17 21:09 | XMS_ITS | Encounter Summary ---
Author Organization [facility], Address [address] [place] [address] Phone Care Team Providers Care Inspector Production [employer] Name Role Phone Mary Ann Marshall MD Primary Care Provider [phone] Encounter Details Date Type Department Care Team (Late st Contact Info) Description 02/23/2024 Documentation Only [facility] [address] [place] [address] Patricia Forbes [address] [place] [address] [phone] Social History Tobacco Use Types Packs/Day Years [...] [facility] [address] [place] [phone] Ermias Shine MD [address] [place] [address] [place] [address] documented as of this encounter Visit Diagnoses Not on filedocumented in this encounter Care Teams Inspector Production [employer] Relationship Specialty Start Date End Date Mary Ann Marshall MD [address] [place] [address], [address] [place] [address] PCP - General Internal Medicine 08/26/23 documented as of this encounter
--- OUTSIDE RECORDS SUMMARY | 2024-11-17 21:09 | XMS_ITS | Encounter Summary ---
Author Organization [facility] Address [address] [place] [address] Phone Care Team Providers Care Mental Health Practitioner Name Role Phone Marquis Yao MD Unavailable + Declan Davey MD Unavailable [phone] Mary Ann Marshall MD Unavailable Giselle iWllard PA-C Unavailable [phone] Lai Rockwell MD Unavailable Marianna Vazquez MD Unavailable Mary Ann Marshall MD Primary Care Provider Mary Ann Marshall MD Unavailable Encounter Details Date Type Department Care Team (Latest Contact Info) Description 08/11/2019 Transcribe Orders [address] [place] [address] Deangelo Rubio MD [address] [place] [address], [address] [place] [address] [email or web address] Benign prostatic hyperplasia with lower urinary tract symptoms, symptom details unspecified (Primary Dx) Social History Tobacco Use Types [...] Description 12/12/2024 10:30 AM EDT Office Visit [facility] [address] [place] [address] 3rd Floor, [address] [place] [address] Judi Kat, ELLIS 22 [facility], [address] [place] [address] 04/06/2025 2:45 PM EST Appointment [facility], Bone Density - [address] [address] Anabella Chauhan MD [address] [place] [address], [address] [place] [address] [email or web address] documented as of this encounter Results * PSA (screening) (08/11/2019 2:24 PM EDT) PSA 1.41 0 - 4.00 ng/mL [facility] Blood 08/11/2019 2:24 PM EDT 08/11/2019 2:27 PM EDT us Deangelo Rubio MD LAB BLOOD ORDERABLES Final Resu lt [facility] [address] [place] [address] documented in this encounter Visit Diagnoses Diagnosis Benign prostatic hyperplasia with lower urinary tract symptoms, symptom details unspecified- Primary documented in this encounter Additional Health Concerns Infection Onset Date Last Indicated Resolved Time CoV-Risk Comment:Per Ambulatory Triage Form 2021 12/03/202112/14 1:22 AM EDT Assessment Noted Time PHQ-2 Depression Total Score: 0 11/12/19 8:42 AM EDT documented as of this encounter Care Teams Mental Health Practitioner Relationship Specialty Start Date End Date Mary Ann Marshall MD [address] [place] [address] PCP - General Internal Medicine 03/10/17 Marquis Yao MD [address] [place] [address] [email or web address] Historical LMR Provider 12/31/16 03/23/21 Declan Davey MD [address] [place] [address] [email or web address] Historical LMR Provider 12/31/16 03/23/21 Mary Ann Marshall MD [address] [place] [address] Historical LMR Provider 12/31/16 Giselle Willard PA-C [address] [place] [address] Orth[facility]ics [facility] Sports Medicine, [place] [address] Historical LMR Provider 12/31/16 03/23/21 Lai Rockwell MD [address] [place] [phone] Historical LMR Provider 12/31/16 2 Marianna Vazquez MD [address] [place] [address] [facility], [place] [address] [email or web address] Historical LMR Provider 12/31/16 Mary Ann Marshall MD [address] [place] [address], [address] [place], [place] [phone] [email or web address] Insurance Assigned Provider 06/19/24 documented as of this encounter Additional Source Comments The information contained in this document represents components of the legal health record. It is not the complete legal health record.[facility]
--- OUTSIDE RECORDS SUMMARY | 2024-11-17 21:09 | XMS_ITS | Encounter Summary ---
Author Organization [facility] Address [address] [place] [address] Phone Care Team Providers Care Molding Fitter Name Role Phone Marquis Yao MD Unavailable + Declan Davey MD Unavailable Mary Ann Marshall MD Unavailable Giselle Willard PA-C Unavailable Lai Rockwell MD Unavailable Marianna Vazquez MD Unavailable Pcp, Unknown Primary Care Provider Unavailabl e Mary Ann Marshall MD Primary Care Provider Mary Ann Marshall MD Unavailable [phone] Encounter Details Date Type Department Care Team (Late st Contact Info) Description 02/27/2017 Ancillary Orders Virtual Department [address] [place] [address] Desi Friend PA [address] [phone] [email or web address] Flank pain Social History Tobacco Use Types [...] Description 12/12/2024 10:30 AM EDT Office Visit [facility] 22 [facility] 3rd Floor, [address] [place] [address] Judi Kat, ELLIS 22 [facility], [address] [place] [address] 04/06/2025 2:45 PM EST Appointment [facility] [address] [place] [address] Anabella Chauhan MD 33 [facility], [address] [place] [address] [email or web address] documented as of this encounter Results * US Kidneys (03/10/2017 8:35 AM EST) Anatomical Region Laterality Modality Abdomen, Kidney Ultrasound 03/10/2017 9:34 AM EST Impressions 03/10/2017 9:39 AM EST The horseshoe kidney located to the right of midline does not appear significant changed from 07/31/2014 although a probable small non-obstructing calculus previously demonstrated is not visible. No evidence of obstructive uropathy or other renal abnormalities. POS [id number] Narrative 03/10/2017 9:39 AM EST HISTORY: Flank pain, history of horseshoe kidney. COMPARISON: CT abdomen 06/08/2015, ultrasound of kidney 07/31/2014. FINDINGS: The horseshoe kidney located to the right of midline is very similar in size and configuration measuring approximately 12.9 cm in the long axis. No pelvocaliectasis has developed. No evidence of renal masses. No visible calculi. No significant development of cortical thinning is evident. The lower pole of the kidney is obscured by overlying bowel gas. Procedure Note Ti Rojo MD - 03/10/2017 HISTORY: Flank pain, history of horseshoe kidney. COMPARISON: CT abdomen 06/08/2015, ultrasound of kidney 07/31/2014. FINDINGS: The horseshoe kidney located to the right of midline is very similar insize and configuration measuring approximately 12.9 cm in the long axis.No pelvocaliectasis has developed. No evidence of renal masses. Novisible calculi. No significant development of cortical thinning isevident. The lower pole of the kidney is obscured by overlying bowelgas. IMPRESSION: The horseshoe kidney located to the right of midline does not appearsignificant changed from 07/31/2014 although a probable smallnon-obstructing calculus previously demonstrated is not visible. Noevidence of obstructive uropathy or other renal abnormalities. POS [id number] Desi ARMENTA IM US RENAL Final Resu lt documented in this encounter Visit Diagnoses Diagnosis Flank pain Abdominal pain, unspecified site Flank pain Abdominal pain, unspecified site documented in this encounter Additional Health Concerns Infection Onset Date Last Indicated Resolved Time CoV-Risk Comment:Per Ambulatory Triage Form 2021 12/03/202112/14 1:22 AM EDT documented as of this encounter Care Teams Molding Fitter Relationship Specialty Start Date End Date Pcp, Unknown PCP - General 01/03/17 03/02/17 Mary Ann Marshall MD [address] [place] [address], 2nd [place] [address] [email or web address] PCP - General Internal Medicine 03/10/17 Marquis Yao MD [address] [place] [address] [email or web address] Historical LMR Provider 12/31/16 03/23/21 Declan Davey MD [address] [place] [address] [email or web address] Historical LMR Provider 12/31/16 03/23/21 Mary Ann Marshall MD [address] [place] [address] Historical LMR Provider 12/31/16 Giselle Willard PA-C [address] [place] [address] Orthopedics & Sports [facility], [place] [address] Historical LMR Provider 12/31/16 03/23/21 Lai Rockwell MD [address] [place] [phone] Historical LMR Provider 12/31/16 Marianna Pollard MD [address] [place] [address] Orthopedics & Sports [facility], [place] [address] Historical LMR Provider 12/31/16 Mary Ann Marshall MD [address] [place] [address] Insurance Assigned Provider 06/19/24 documented as of this encounter Additional Source Comments The information contained in this document represents components of the legal health record. It is not the complete legal health record.[facility]
--- OUTSIDE RECORDS SUMMARY | 2024-11-17 21:09 | XMS_ITS | Encounter Summary ---
Author Organization [facility] Address [address] [place] [address] [place] [address] Phone Care Team Providers Care Electron Gun Inspector Name Role Phone Marquis Yao MD Unavailable + Declan Davey MD Unavailable Mary Ann Marshall MD Unavailable Giselle Willard PA-C Unavailable [phone] Lai Rockwell MD Unavailable Marianna Vazquez MD Unavailable Pcp, Unknown Primary Care Provider Unavailabl e Mary Ann Marshall MD Primary Care Provider [phone] Mary Ann Marshall MD Unavailable Encounter Details Date Type Department Care Team (Late st Contact Info) Description 01/03/2017 Ancillary Orders [facility], X-Ray - [address] [address] Anabella Chauhan MD [address] [place] [address], [address] [place] [address] [email or web address] Osteopenia, unspecified location Social History Tobacco Use Types Packs/Day Years [...] Description 12/12/2024 10:30 AM EDT Office Visit [facility] 22 [facility] 3rd Floor, [address] [place] [address] Judi Kat, ELLIS 22 [facility], [address] [place] [address] 04/06/2025 2:45 PM EST Appointment [facility], Bone Density [facility] [address] [place] [address] Anabella Chauhan MD 33 [facility], [address] [place] [address] documented as of this encounter Results * BD DXA AXIAL (SPINE) WITH HIP (04/22/2017 8:51 AM EST) Anatomical Region Laterality Modality Bone Density Bone Density 04/22/2017 12:1 9 PM EST Impressions 04/22/2017 12:21 PM EST Findings again consistent with osteopenia. Statistically significant bone mineral density loss at the left hip since 04/17/2015. No other significant changes. POS [id number] Narrative 04/22/2017 12:21 PM EST This is a 61-year-old male with history of osteopenia. Compared with the previous studies as far back as 03/28/2011 and is recent as 04/17/2015. Evaluation of the lumbar spine and both hips is obtained and appears technically adequate. The lumbar spine from L1 through L4 discloses a total bone mineral density of 0.889 g/cm2 with a T-score of -1.8. Z score -1.2. This is in the osteopenia range. No statistically significant change from the most recent previous exam. The right hip has a total bone mineral density of 0.906 g/cm2 with a T-score of -0.8. This is in the normal range. No statistically significant change from the most recent previous exam. The left hip has a total bone mineral density of 0.854 g/cm2 for a T-score of - 1.2. Z score -0.7. This is in the osteopenia range. This represents a statistically significant bone mineral density change of -5.2% from 04/17/2015. Lateral instant vertebral imaging is no performed. Procedure Note Ti Rojo MD - 04/22/2017 This is a 61-year-old male with history of osteopenia. Compared with the previous studies as far back as 03/28/2011 and is recentas 04/17/2015. Evaluation of the lumbar spine and both hips is obtained and appearstechnically adequate. The lumbar spine from L1 through L4 discloses a total bone mineral densityof 0.889 g/cm2 with a T-score of -1.8. Z score -1.2. This is in theosteopenia range. No statistically significant change from the mostrecent previous exam. The right hip has a total bone mineral density of 0.906 g/cm2 with aT-score of - 0.8. This is in the normal range. No statisticallysignificant change from the most recent previous exam. The left hip has a total bone mineral density of 0.854 g/cm2 for a T-scoreof - 1.2. Z score -0.7. This is in the osteopenia range. This representsa statistically significant bone mineral density change of -5.2% from04/17/2015. Lateral instant vertebral imaging is no performed. IMPRESSION: Findings again consistent with osteopenia. Statistically significant bonemineral density loss at the left hip since 04/17/2015. No othersignificant changes. POS -[id number] Anabella ARTEAGA BD BONE DENSITY DEXA Fin al Result documented in this encounter Visit Diagnoses Diagnosis Osteopenia, unspecified location Osteopenia, unspecified location documented in this encounter Additional Health Concerns Infection Onset Date Last Indicated Resolved Time CoV-Risk Comment:Per Ambulatory Triage Form 2021 12/03/202112/14 1:22 AM EDT documented as of this encounter Care Teams Electron Gun Inspector Relationship Specialty Start Date End Date Pcp, Unknown PCP - General 01/03/17 03/02/17 Mary Ann Marshall MD [address] [place] [address] PCP - General Internal Medicine 03/10/17 Marquis Yao MD [address] [place] [address] [email or web address] Historical LMR Provider 12/31/16 03/23/21 Declan Davey MD [address] [place] [address] [email or web address] Historical LMR Provider 12/31/16 03/23/21 Mary Ann Marshall MD [address] [place] [address] Historical LMR Provider 12/31/16 Giselle Willard PA-C [address] [place] [address] Orthopedics & Sports Medicine, [place] [address] Historical LMR Provider 12/31/16 03/23/21 Lai Rockwell MD [address] [place] [phone] Historical LMR Provider 12/31/16 2 Marianna Vazquez MD [address] [place] [address] Orthopedics & Sports Medicine, [facility] [place] [address] [email or web address] Historical LMR Provider 12/31/16 Mary Ann Marshall MD [address] [place] [address], 2nd [place] [address] [email or web address] Insurance Assigned Provider 06/19/24 documented as of this encounter Additional Source Comments The information contained in this document represents components of the legal health record. It is not the complete legal health record.[facility]
--- OUTSIDE RECORDS SUMMARY | 2024-11-17 21:09 | XMS_ITS | Clinical Summary ---
Author Organization [facility] Address [address] [place] [address] Phone Care Team Providers Care Fire Systems Inspector Name Role Phone Mary Ann Marshall MD Primary Care Provider [phone] Allergies Active Allergy Reactions Criticality Noted Date [...] Encounters Date Type Department Care Team Description 08/25/2024 10:30 AM EDT Office [facility] [address] [place] [address] Ermias Shine MD Urolithiasis (Primary Dx); Renal stone from Last 3 Months Immunizations Immunization Administration Dates Next Due Influenza, [...] Visit [facility] [place], [address] [address] Ermias Shine MD [address] [place] [address] [place] [address] Health Maintenance Due Date Last Done Comments Colorectal Cancer Screening: Annual FOBT 12/01/2004 Colorectal Cancer Screening: Colonoscopy 12/01/2004 Colorectal Cancer Screening: Sigmoidoscopy 12/01/2004 Influenza Vaccine (#1) 2024 4, 01/09/2023, 12/05/2021, Additional history exists Pneumococcal Vaccine: 50+ Years Completed 11/12/2022, 12/18/2020 Hepatitis B Vaccine Aged Out No longe r eligible based on patient's age to complete this topic Insurance Medicare [facility] Care Teams Fire Systems Inspector Relationship Specialty Start Date End Date Mary Ann Marshall MD [address] [place] [address], 2nd [place] [address] PCP - General Internal Medicine 08/26/23
--- OUTSIDE RECORDS SUMMARY | 2024-11-17 21:10 | XMS_ITS | Encounter Summary ---
Author Organization [facility] Address [address] [place] [address] Phone Care Team Providers Care Sizing Machine And Drier Operator Name Role Phone Mary Ann Marshall MD Primary Care Provider [phone] Encounter Details Date Type Department Care Team (Late st Contact Info) Description 09/11/2023 Documentation Only [facility] [address] [place] [address] [place], [place] [address] [place] [phone] Social History Tobacco Use Types Packs/Day Years [...] Visit [facility] [place] [address] [place] [phone] Ermias Shine MD [address] [place] [address] [place] [address] documented as of this encounter Visit Diagnoses Not on filedocumented in this encounter Care Teams Sizing Machine And Drier Operator Relationship Specialty Start Date End Date Mary Ann Marshall MD [address] [place], [place] [address], [place] [address] PCP - General Internal Medicine 08/26/23 documented as of this encounter
--- OUTSIDE RECORDS SUMMARY | 2024-11-17 21:10 | XMS_ITS | Encounter Summary ---
Author Organization [facility] Address [address] [facility] [address] [place] [address] Phone Care Team Providers Care Insulation Estimator Name Role Phone Marshall, Mary Ann A MD Unavailable [phone] Marshall, Mary Ann A MD Primary Care Provider [phone] Marshall, Mary Ann A MD Unavailable [phone] Encounter Details Date Type Department Care Team (Late st Contact Info) Description 08/27/2022 Procedure Pass [facility], Ct Scan - [facility] [address] [place] [address] Social History Tobacco Use Types Packs/Day Years [...] high school, GED, job training, learning the Marshallese language, technical skills, or developing parenting skills)? [...] Description 12/12/2024 10:30 AM EDT Office Visit [facility] [address] [place] [address] 3rd [facility], [address] [place] [address] Judi Kat, ELLIS 22 [facility], [address] [place] [address] 04/06/2025 2:45 PM EST Appointment [facility], Bone [facility] [address] [place] [address] Anabella Chauhan MD [address] [place] [address] 8 [place] [address] documented as of this encounter Visit Diagnoses Not on filedocumented in this encounter Additional Health Concerns Assessment Noted Time PHQ-2 Depression Total Score: 0 11/12/19 22 8:21 AM EDT documented as of this encounter Care Teams Insulation Estimator Relationship Specialty Start Date End Date Mary Ann Marshall MD [address] [place] [address] [email or web address] PCP - General Internal Medicine 03/10/17 Mary Ann Marshall MD [address] [place] [address] [email or web address] Historical LMR Provider 12/31/16 Mary Ann Marshall MD [address] [place] [address] [email or web address] Insurance Assigned Provider 06/19/24 documented as of this encounter Additional Source Comments The information contained in this document represents components of the legal health record. It is not the complete legal health record.[facility]
--- OUTSIDE RECORDS SUMMARY | 2024-11-17 21:10 | XMS_ITS | Encounter Summary ---
Author Organization [facility] Address [address] [place] [address] Phone Care Team Providers Care Brush Worker Name Role Phone Marshall, Mary Ann A MD Unavailable [phone] Marshall, Mary Ann A MD Primary Care Provider [phone] Marshall, Mary Ann A MD Unavailable [phone] Encounter Details Date Type Department Care Team (Latest Contact Info) Description 08/22/2022 Transcribe Orders [facility] [address] 2nd [place] [address] Kristine Hanna PA [address] [address] [email or web address] Screening for prostate cancer Social History Tobacco Use Types Packs/Day Years [...] high school, GED, job training, learning the [place] language, technical skills, or developing parenting skills)? [...] Description 12/12/2024 10:30 AM EDT Office Visit [facility] [address] [place] [address] 3rd Floor, [address] [place] [address] Judi Kat, ELLIS 22 [facility], [address] [place] [address] 04/06/2025 2:45 PM EST Appointment [facility], Bone Density - [address] [address] Anabella Chauhan MD [address] [place] [address], [address] [place] [address] documented as of this encounter Results * PSA (screening) (08/22/2022 9:17 AM EDT) PSA 1.25 0 - 4.00 ng/mL [facility] Blood 08/22/2022 9:17 AM EDT 08/22/2022 9:26 AM EDT us Kristine ARMENTA LAB BLOOD ORDERABLES Final Resul t [address] [address] documented in this encounter Visit Diagnoses Diagnosis Screening for prostate cancer Special screening for malignant neoplasm of prostate documented in this encounter Additional Health Concerns Assessment Noted Time PHQ-2 Depression Total Score: 0 11/12/19 22 8:21 AM EDT documented as of this encounter Care Teams Brush Worker Relationship Specialty Start Date End Date Mary Ann Marshall MD [address] [place] [address] PCP - General Internal Medicine 03/10/17 Mary Ann Marshall MD [address] [place] [address] Historical LMR Provider 12/31/16 Mary Ann Marshall MD [address] [place] [address] Insurance Assigned Provider 06/19/24 documented as of this encounter Additional Source Comments The information contained in this document represents components of the legal health record. It is not the complete legal health record.[facility]
--- OUTSIDE RECORDS SUMMARY | 2024-11-17 21:10 | XMS_ITS | Encounter Summary ---
Author Organization [facility] Address [address] [place] [address] Phone Care Team Providers Care Spray Gun Repairer Helper Name Role Phone Marshall, Mary Ann A MD Unavailable [phone] Marshall, Mary Ann A MD Primary Care Provider [phone] Marshall, Mary Ann A MD Unavailable [phone] Encounter Details Date Type Department Care Team (Late st Contact Info) Description 09/24/2023 Transcribe Orders Virtual Department [address] [place] [address] Alexandria Brice PA-C [address] [place] [id number] [email or web address] Dysphagia, unspecified type (Primary Dx) Social History Tobacco Use Types [...] high school, GED, job training, learning the Armenian language, technical skills, or developing parenting skills)? [...] Description 12/12/2024 10:30 AM EDT Office Visit [facility] 22 [facility] 3rd Floor, [address] [place] [address] Judi Kat, ELLIS 22 [facility], [address] [place] [address] 04/06/2025 2:45 PM EST Appointment [facility], [facility] [address] [place] [address] Anabella Chauhan MD 33 [facility], [address] [place] [address] [email or web address] documented as of this encounter Results * FL (Speech) Video Swallow Study (12/01/2023 10:25 AM EDT) Anatomical Region Laterality Modality Radio Fluoroscop y 12/01/2023 11:5 0 AM EDT Impressions 12/01/2023 12:45 PM EDT Single episode of freddy aspiration with thin barium during a head turn maneuver, eliciting a spontaneous cough response. No laryngeal penetration of additional substances. Mild vallecular residue. Please refer to the clinical notes by the Speech Pathologist for detailed description of the Modified Swallow findings. FLUOROSCOPY TIME: 2 minutes 16 seconds NUMBER OF IMAGES: [id number] ATTESTATION: I, Roberto Baker as teaching physician, have reviewed the images for this case and if necessary edited the report originally created by Ryan Matias. Narrative 12/01/2023 12:45 PM EDT FL MODIFIED BARIUM SWALLOW HISTORY:Dysphagia. COMPARISON:Modified barium swallow 05/25/2023 and barium swallow esophagram 10/27/2022. OPERATORS: Ryna Matias SUPERVISING PHYSICIAN: Roberto Baker TECHNIQUE: Fluoroscopic assistance was provided for the speech pathologist during video swallow. The patient was observed in the lateral projection while being fed various consistencies of barium (thin liquids, applesauce, pudding and cracker). FINDINGS: The oral and pharyngeal stages of swallowing will be reported separately by the Department of Speech and Language Pathology. There was a single episode of freddy aspiration with thin barium during a head turn maneuver. A spontaneous cough response was noted. No freddy aspiration or deep laryngeal penetration demonstrated on all additional swallows. There was incomplete epiglottic inversion resulting in mild vallecular residue, most pronounced with cracker barium consistency. Procedure Note Roberto Baker MD - 12/01/2023 FL MODIFIED BARIUM SWALLOW HISTORY:Dysphagia. COMPARISON:Modified barium swallow 05/25/2023 and barium swallow esophagram10/27/2022. OPERATORS: Ryan Matias SUPERVISING PHYSICIAN: Roberto Baker TECHNIQUE: Fluoroscopic assistance was provided for the speech pathologist duringvideo swallow. The patient was observed in the lateral projection whilebeing fed various consistencies of barium (thin liquids, applesauce,pudding and cracker). FINDINGS: The oral and pharyngeal stages of swallowing will be reported separatelyby the Department of Speech and Language Pathology. There was a single episode of freddy aspiration with thin barium during ahead turn maneuver. A spontaneous cough response was noted. No frankaspiration or deep laryngeal penetration demonstrated on all additionalswallows. There was incomplete epiglottic inversion resulting in mildvallecular residue, most pronounced with cracker barium consistency. IMPRESSION: Single episode of freddy aspiration with thin barium during a head turnmaneuver, eliciting a spontaneous cough response. No laryngeal penetrationof additional substances. Mild vallecular residue. Please refer to the clinical notes by the Speech Pathologist for detaileddescription of the Modified Swallow findings. FLUOROSCOPY TIME: 2 minutes 16 seconds NUMBER OF IMAGES: [id number] ATTESTATION: IRoberto as teaching physician, have reviewed theimages for this case and if necessary edited the report originally createdby Ryan Matias. Alexandria Brice PA-C IMG FL EXAMS Final Re sult documented in this encounter Visit Diagnoses Diagnosis Dysphagia, unspecified type- Primary Dysphagia, unspecified type- Primary documented in this encounter Additional Health Concerns Assessment Noted Time PHQ-2 Depression Total Score: 0 11/11/19 23 5:01 PM EDT documented as of this encounter Care Teams Spray Gun Repairer Helper Relationship Specialty Start Date End Date Mary Ann Marshall MD [address] [place] [address] [email or web address] PCP - General Internal Medicine 03/10/17 Mary Ann Marshall MD [address] [place] [address] [email or web address] Historical LMR Provider 12/31/16 Mary Ann Marshall MD [address] [place] [phone] [email or web address] Insurance Assigned Provider 06/19/24 documented as of this encounter Additional Source Comments The information contained in this document represents components of the legal health record. It is not the complete legal health record.[facility]
--- OUTSIDE RECORDS SUMMARY | 2024-11-17 21:10 | XMS_ITS | Encounter Summary ---
Author Organization [facility] Address [address] [place] [address] Phone Care Team Providers Care Urology Physician Name Role Phone Marshall, Mary Ann A MD Unavailable [phone] Marshlal, Mary Ann A MD Primary Care Provider [phone] Marshall, Mary Ann A MD Unavailable [phone] Encounter Details Date Type Department Care Team (Latest Contact Info) Description 09/05/2022 Transcribe Orders Virtual Department [address] [place] [address] Lyndsay Barron PA-C [address] [place] [address] [email or web address] Gastroesophageal reflux disease, unspecified whether esophagitis present (Primary Dx); Diarrhea, unspecified type; Constipation, unspecified constipation type Social History Tobacco Use Types Packs/Day Years [...] high school, GED, job training, learning the Ukrainian language, technical skills, or developing parenting skills)? [...] your housing situation today? I have tiara sing 11/11/2021 How many times have you move [...] Description 12/12/2024 10:30 AM EDT Office Visit [facility] [address] [place] [address] 3rd Floor, [address] [place] [address] Judi Kat, ELLIS 22 [facility], [address] [place] [address] [email or web address] 04/06/2025 2:45 PM EST Appointment [facility], Bone Density - [address] [address] Anabella Chauhan MD 33 [facility], [address] [place] [address] [email or web address] documented as of this encounter Results * FL BARIUM SWALLOW ESOPHAGRAM DOUBLE CONTRAST (10/27/2022 11:36 AM EDT) Anatomical Region Laterality Modality Chest Computed Radiogr aphy 10/27/2022 2:06 PM EDT Impressions 10/28/2022 8:53 AM EDT Mild smooth narrowing of the gastroesophageal junction with intact fundoplication and persistent hold-up to passage of a 13 mm barium tablet. No spontaneous reflux or gross mucosal pathology identified. Aspiration of a small amount of barium which did not elicit a cough reflex. ATTESTATION: I, Roberto Baker as teaching physician, have reviewed the images for this case and if necessary edited the report originally created by Ryan Matias. Narrative 10/28/2022 8:53 AM EDT FL BARIUM SWALLOW ESOPHAGRAM DOUBLE CONTRAST TECHNIQUE: Double contrast barium swallow was performed with Sodium Carbonate and Barium. OPERATORS: Ryan Baker HISTORY: Lenin fundoplication 1998. Gastroesophageal reflux disease. Dysphagia. COMPARISON: CT abdomen 09/19/2022 FINDINGS: A preliminary lateral view of the neck demonstrates no acute abnormalities. Swallow: There was expected transfer from the oral cavity to the pharynx. Mild vallecular and piriform sinus residue demonstrated. No direct epiglottic penetration visualized but subsequent images demonstrate contrast in the subglottis, consistent with aspiration, that did not elicit a cough reflex. Gastroesophageal junction: There is no evidence of hiatal hernia. The Lenin wrap appears to be intact. Persistent retention of a standard 13 mm barium tablet at the level of the GE junction. Reflux: Assessment for gastroesophageal reflux demonstrated no evidence of reflux. Fluoroscopy Time: 3 minutes 33 seconds Number of Spot films/frames: 183 Procedure Note Roberto Baker MD - 10/28/2022 FL BARIUM SWALLOW ESOPHAGRAM DOUBLE CONTRAST TECHNIQUE: Double contrast barium swallow was performed with Sodium Carbonate andBarium. OPERATORS: Ryan Baker HISTORY: Lenin fundoplication 1998. Gastroesophageal reflux disease.Dysphagia. COMPARISON: CT abdomen 09/19/2022 FINDINGS: A preliminary lateral view of the neck demonstrates no acuteabnormalities. Swallow: There was expected transfer from the oral cavity to the pharynx.Mild vallecular and piriform sinus residue demonstrated. No directepiglottic penetration visualized but subsequent images demonstratecontrast in the subglottis, consistent with aspiration, that did notelicit a cough reflex. Gastroesophageal junction: There is no evidence of hiatal hernia. TheNissen wrap appears to be intact. Persistent retention of a standard 13 mm barium tablet at the level of theGE junction. Reflux: Assessment for gastroesophageal reflux demonstrated no evidenceof reflux. Fluoroscopy Time: 3 minutes 33 seconds Number of Spot films/frames: 183 IMPRESSION: Mild smooth narrowing of the gastroesophageal junction with intactfundoplication and persistent hold-up to passage of a 13 mm barium tablet.No spontaneous reflux or gross mucosal pathology identified. Aspiration of a small amount of barium which did not elicit a coughreflex. ATTESTATION: I, Roberto Baker as teaching physician, have reviewed theimages for this case and if necessary edited the report originally createdby Ryan Matias. Lyndsay Barron PA-C [facility] Final Result documented in this encounter Visit Diagnoses Diagnosis Gastroesophageal reflux disease, unspecified whether esophagitis present- Primary Diarrhea, unspecified type Constipation, unspecified constipation type Gastroesophageal reflux disease, unspecified whether esophagitis present Diarrhea, unspecified type Constipation, unspecified constipation type documented in this encounter Additional Health Concerns Assessment Noted Time PHQ-2 Depression Total Score: 0 11/12/19 22 8:21 AM EDT documented as of this encounter Care Teams Urology Physician Relationship Specialty Start Date End Date Mary Ann Marshall MD [address] [place] [address] [email or web address] PCP - General Internal Medicine 03/10/17 Mary Ann Marshall MD [address] [place] [address] [email or web address] Historical LMR Provider 12/31/16 Mary Ann Marshall MD [address] [place] [address], 2nd [place] [address] [email or web address] Insurance Assigned Provider 06/19/24 documented as of this encounter Additional Source Comments The information contained in this document represents components of the legal health record. It is not the complete legal health record.[facility]
--- OUTSIDE RECORDS SUMMARY | 2024-11-17 21:10 | XMS_ITS | Encounter Summary ---
Author Organization [facility] Address [address] [place] [address] Phone Care Team Providers Care Environmental Studies Faculty Member Name Role Phone Marshall, Mary Ann A MD Unavailable [phone] Marshall, Mary Ann A MD Primary Care Provider [phone] Marshall, Mary Ann A MD Unavailable [phone] Reason for Referral * MRI/CAT Scan - Closed Specialty Diagnoses / Procedures Referred By Toribio t Referred To Contact Radiology Diagnoses Diarrhea, unspecified type Constipation, unspecified constipation type Gastroesophageal reflux disease, unspecified whether esophagitis present Procedures CT Abdomen/Pelvis CHG CT SCAN,ABDOMENT AND PELVIS,W CONTRAST CHG CT SCAN,ABDOMENT AND PELVIS,COMBO CHG CT SCAN,ABDOMENT AND PELVIS,W/O CONTRAST Lyndsay Barron PA-C Phone: tel: fax: [email or web address] Referral ID Status Reason Start Date Expiration Date Visits Re quested Visits Authorized [id number] Closed 08/27/2022 09/24/2022 1 1 Encounter Details Date Type Department Care Team (Latest Contact Info) Description 08/27/2022 Transcribe Orders Virtual Department [address] [place] [address] Lyndsay Barron PA-C [address] [place] [address] [email or web address] Diarrhea, unspecified type (Primary Dx); Constipation, unspecified constipation type; Gastroesophageal reflux disease, unspecified whether esophagitis present Social History Tobacco Use Types Packs/Day Years [...] high school, GED, job training, learning the Swiss language, technical skills, or developing parenting skills)? [...] Description 12/12/2024 10:30 AM EDT Office Visit [facility] 22 [facility] 3rd Floor, [address] [place] [address] Judi Kat, ELLIS 22 [facility], [address] [place] [address] [email or web address] 04/06/2025 2:45 PM EST Appointment [address] [address] Anabella Chauhan MD 33 [facility], [address] [place] [address] documented as of this encounter Results * CT ABDOMEN/PELVIS WITH CONTRAST (09/19/2022 12:49 PM EDT) Anatomical Region Laterality Modality Abdomen, Pelvis Computed Tomogra phy 09/20/2022 6:16 AM EDT Impressions 09/20/2022 8:11 AM EDT No cause for the reported symptoms identified in the abdomen/pelvis. Narrative 09/20/2022 8:[address] ABDOMEN/PELVIS WITH CONTRAST TECHNIQUE: Multidetector-row CT of the abdomen and pelvis was performed after administration of intravenous contrast using tailored dose modulation techniques. Images were reconstructed in the axial, coronal, and sagittal planes. COMPARISON: CT abdomen/pelvis 06/08/2015. FINDINGS: Lower Chest: Normal. No consolidation or pleural effusions. Liver: No suspicious focal liver lesion. Benign hepatic cysts. Punctate calcified hepatic granuloma. Multiple subcentimeter hepatic hypodensities are too small to characterize but most likely benign. Biliary: No biliary ductal dilatation. Spleen: Normal. No splenomegaly or focal lesions. Pancreas: Normal. No masses or ductal dilatation. Adrenal Glands: Normal. No nodules. Kidneys/Ureters: No solid renal mass or hydronephrosis. 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 Bowel: No bowel obstruction or wall thickening. Peritoneum/Retroperitoneum: Trace pelvic free fluid. Lymph Nodes: Normal. No lymphadenopathy. Pelvic Organs/Bladder: Prostatomegaly. Moderate diffuse bladder wall thickening also present previously, likely predominantly related to chronic bladder outlet obstruction. Vessels: No abdominal aortic aneurysm. Bones/Soft Tissues: No suspicious focal osseous lesion. Spine degenerative changes. Procedure Note Baljinder Herman MD - 09/20/2022 CT ABDOMEN/PELVIS WITH CONTRAST TECHNIQUE: Multidetector-row CT of the abdomen and pelvis was performedafter administration of intravenous contrast using tailored dosemodulation techniques. Images were reconstructed in the axial, coronal,and sagittal planes. COMPARISON: CT abdomen/pelvis 06/08/2015. FINDINGS: Lower Chest: Normal. No consolidation or pleural effusions. Liver: No suspicious focal liver lesion. Benign hepatic cysts. Punctatecalcified hepatic granuloma. Multiple subcentimeter hepatic hypodensitiesare too small to characterize but most likely benign. Biliary: No biliary ductal dilatation. Spleen: Normal. No splenomegaly or focal lesions. Pancreas: Normal. No masses or ductal dilatation. Adrenal Glands: Normal. No nodules. Kidneys/Ureters: No solid renal mass or hydronephrosis. Cross fused renalectopia, with a nonobstructing stone in the left renal moiety on 2:48. Bowel: No bowel obstruction or wall thickening. Peritoneum/Retroperitoneum: Trace pelvic free fluid. Lymph Nodes: Normal. No lymphadenopathy. Pelvic Organs/Bladder: Prostatomegaly. Moderate diffuse bladder wallthickening also present previously, likely predominantly related tochronic bladder outlet obstruction. Vessels: No abdominal aortic aneurysm. Bones/Soft Tissues: No suspicious focal osseous lesion. Spine degenerativechanges. IMPRESSION: No cause for the reported symptoms identified in the abdomen/pelvis. Lyndsay Barron PA-C IMG CT ABD/PELVIS Final Result documented in this encounter Visit Diagnoses Diagnosis Diarrhea, unspecified type- Primary Constipation, unspecified constipation type Gastroesophageal reflux disease, unspecified whether esophagitis present Diarrhea, unspecified type Constipation, unspecified constipation type Gastroesophageal reflux disease, unspecified whether esophagitis present documented in this encounter Additional Health Concerns Assessment Noted Time PHQ-2 Depression Total Score: 0 11/12/19 22 8:21 AM EDT documented as of this encounter Care Teams Environmental Studies Faculty Member Relationship Specialty Start Date End Date Mary Ann Marshall MD [address] [place] [phone] [email or web address] PCP - General Internal Medicine 03/10/17 Mary Ann Marshall MD [address] [place] [address] Historical LMR Provider 12/31/16 Mary Ann Marshall MD [address] [place] [address] Insurance Assigned Provider 06/19/24 documented as of this encounter Additional Source Comments The information contained in this document represents components of the legal health record. It is not the complete legal health record.[facility]
--- OUTSIDE RECORDS SUMMARY | 2024-11-17 21:10 | XMS_ITS | Encounter Summary ---
Author Organization [facility] Address [address] [address] Phone Care Team Providers Care Electric Spot Welder Name Role Phone Marquis Yao MD Unavailable + Declan Davey MD Unavailable [phone] Mary Ann Marshall MD Unavailable Giselle Willard PA-C Unavailable [phone] Lai Rockwell MD Unavailable Marianna Vazquez MD Unavailable Mary Ann Marshall MD Primary Care Provider Mary Ann Marshall MD Unavailable Encounter Details Date Type Department Care Team (Latest Contact Info) Description 08/17/2017 Transcribe Orders [address] [place] [address] Deangelo Rubio MD [address] [place] [address], [address] [place] [address] [email or web address] 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) Social History Tobacco Use Types [...] Description 12/12/2024 10:30 AM EDT Office Visit [facility] 22 [facility] 3rd Floor, [address] [place] [address] Judi Kat, ELLIS 22 [facility], [address] [place] [address] 04/06/2025 2:45 PM EST Appointment [facility], Bone Density - [address] [address] Anabella Chauhan MD [address] [place] [address], [address] [place] [address] documented as of this encounter Results * PSA (screening) (08/17/2017 9:19 AM EDT) PSA 3.18 0 - 4.00 ng/mL [facility] Blood 08/17/2017 9:19 AM EDT 08/17/2017 9:21 AM EDT us Deangelo Rubio MD LAB BLOOD ORDERABLES Final Resu lt [facility] [address] [place] [address] documented in this encounter Visit Diagnoses Diagnosis Benign localized hyperplasia of prostate with urinary retention- Primary Benign localized hyperplasia of prostate with urinary obstruction and other lower urinary tract symptoms (LUTS) documented in this encounter Additional Health Concerns Infection Onset Date Last Indicated Resolved Time CoV-Risk Comment:Per Ambulatory Triage Form 2021 12/03/202112/14 1:22 AM EDT Assessment Noted Time PHQ-2 Depression Total Score: 0 03/31/19 1:47 PM EST documented as of this encounter Care Teams Electric Spot Welder Relationship Specialty Start Date End Date Mary Ann Marshall MD [address] [place] [address] PCP - General Internal Medicine 03/10/17 Marquis Yao MD [address] [place] [address] [email or web address] Historical LMR Provider 12/31/16 03/23/21 Declan Davey MD [address] [place] [address] [email or web address] Historical LMR Provider 12/31/16 03/23/21 Mary Ann Marshall MD [address] [place] [address] Historical LMR Provider 12/31/16 Giselle Willard PA-C [address] [place] [address] [facility], [place] [address] Historical LMR Provider 12/31/16 03/23/21 Lai Rockwell MD [address] [place] [phone] Historical LMR Provider 12/31/16 2 Marianna Vazquez MD [address] [place] [address] [facility], [place] [address] [email or web address] Historical LMR Provider 12/31/16 Mary Ann Marshall MD [address] [place] [address], 2nd [place] [address] [email or web address] Insurance Assigned Provider 06/19/24 documented as of this encounter Additional Source Comments The information contained in this document represents components of the legal health record. It is not the complete legal health record.[facility]
--- OUTSIDE RECORDS SUMMARY | 2024-11-17 21:10 | XMS_ITS | Encounter Summary ---
Author Organization [facility] Address [address] [place] [address] Phone Care Team Providers Care Vending Machine Attendant Name Role Phone Marshall, Mary Ann A MD Unavailable [phone] Marshall, Mary Ann A MD Primary Care Provider [phone] Marshall, Mary Ann A MD Unavailable Encounter Details Date Type Department Care Team (Latest Contact Info) Description 01/01/2023 Transcribe Orders [facility] [address] 2nd [place] [address] Ti Fry MD [address] [address] [email or web address] Celiac disease (Primary Dx); Chronic diarrhea of unknown origin; Gastroesophageal reflux disease, unspecified whether esophagitis present [...] high school, GED, job training, learning the Burundian language, technical skills, or developing parenting skills)? [...] computer) with a working camera? Yes 11/10/2022 Sex and Gender Information Value Date Recorded Sex Assigned at Male 08/04/2023 2:25 AM EDT Legal Sex Male 9:54 PM EDT Gender Identity Male 08/04/2023 2:25 AM EDT Sexual Orientation Straight 08/04/2023 2: 25 AM EDT documented as of this encounter Plan of Treatment Upcoming Encounters Date Type Department Care Team (Late st Contact Info) Description 12/12/2024 10:30 AM EDT Office Visit [facility] [address] [place] [address] 3rd Floor, [address] [place] [address] Judi Kat, ELLIS 22 [facility], [address] [address] 04/06/2025 2:45 PM EST Appointment [facility], Bone Density - [address] [address] Anabella Chauhan MD 33 [facility], [address] [place] [address] [email or web address] International English documented as of this encounter Results * Vitamin A (01/01/2023 9:14 AM EDT) VITAMIN A 59.9 32.5 - 78.0 mcg/dL [facility] Comment: (NOTE) ADDITIONAL INFORMATION This test was developed and its performance characteristics determined by [facility] in a manner consistent with CLIA requirements. This test has not been cleared or approved by the U.S. Food and Drug Administration. Blood 01/01/2023 9:14 AM EDT 01/01/2023 9:21 AM EDT Ti Fry MD LAB BLOOD ORDERABLES Final R esult Performing Organization Address City/State/[facility] [[email or web address]] Co de Phone Number [facility] [address] [place] [address] * Vitamin K (01/01/2023 9:14 AM EDT) VITAMIN K1 0.69 0.10 - 2.20 ng/mL [facility] Comment: (NOTE) ADDITIONAL INFORMATION This test was developed and its performance characteristics determined by [facility] in a manner consistent with CLIA requirements. This test has not been cleared or approved by the U.S. Food and Drug Administration. Blood 01/01/2023 9:14 AM EDT 01/01/2023 9:21 AM EDT Ti Fry MD LAB BLOOD ORDERABLES Final R esult Performing Organization Address [facility] de Phone Number [facility] [address] [place] [address] * Vitamin E (01/01/2023 9:14 AM EDT) [facility] VIT E, A-TOCOPHEROL 8.5 5.5 - 17.0 mg/L [facility] Comment: (NOTE) ADDITIONAL INFORMATION This test was developed and its performance characteristics determined by [facility] in a manner consistent with CLIA requirements. This test has not been cleared or approved by the U.S. Food and Drug Administration. Blood 01/01/2023 9:14 AM EDT 01/01/2023 9:21 AM EDT Ti Fry MD LAB BLOOD ORDERABLES Final R esult Performing Organization Address [facility] de Phone Number [facility] [address] [place] [address] * 25-OH vitamin D (01/01/2023 9:14 AM EDT) [facility] 25 [place] VIT D (TOTAL) 35 30 - 60 ng/mL [facility] Blood 01/01/2023 9:14 AM EDT 01/01/2023 9:21 AM EDT Ti Fry MD LAB BLOOD ORDERABLES Final R esult Performing Organization Address City/[facility] [[email or web address]] Co de Phone Number [facility] [address] [place], [place] [phone] * Vitamin B12 (01/01/2023 9:14 AM EDT) [facility] VITAMIN B12 264 232 - 1,245 pg/mL [facility] Blood 01/01/2023 9:14 AM EDT 01/01/2023 9:21 AM EDT us Ti Fry MD LAB BLOOD ORDERABLES Final R esult [address] [address] * C-Reactive Protein (01/01/2023 9:14 AM EDT) C REACTIVE PROTEIN <3.0 0.0 - 4.0 mg/L [facility] Blood 01/01/2023 9:14 AM EDT 01/01/2023 9:21 AM EDT us Ti Fry MD LAB BLOOD ORDERABLES Final R esult Performing Organization Address City/[facility]/ZIP Co de Phone Number [address] [address] * (ABNORMAL) Comprehensive metabolic panel (01/01/2023 9:14 AM EDT) Pathologist [facility] SODIUM 142 133 - 146 mmol/L [facility] POTASSIUM 4.4 3.3 - 5.1 mmol/L [facility] CHLORIDE 107 96 - 108 mmol/L [facility] CO2 26 21 - 35 mmol/L [facility] BUN 24(H) 6 - 19 mg/dL [facility] CREATININE 1.30 0.5 - 1.5 mg/dL [facility] GLUCOSE 138(H) 70 - 99 mg/dL [facility] ALBUMIN 3.8(L) 3.9 - 4.8 g/dL [facility] TOTAL PROTEIN 6.1(L) 6.5 - 8.0 g/dL [facility] CALCIUM 9.2 8.4 - 10.3 mg/dL [facility] ALKALINE PHOSPHATASE 58 39 - 117 U/L [facility] TOTAL BILIRUBIN 0.5 0.0 - 1.2 mg/dL [facility] AST 20 0 - 37 U/L [facility] ALT 13 0 - 40 U/L [facility] GLOBULIN 2.3 1 - 4.8 g/dL [facility] EGFR 60 >59 mL/min/1.7 3m2 [facility] Comment:Estimated glomerular filtration rate calculated using the CKD-EPI refit equation. ANION GAP 13 10 - 20 mmol/L [facility] Blood 01/01/2023 9:14 AM EDT 01/01/2023 9:21 AM EDT us Ti Fry MD LAB BLOOD ORDERABLES Final R esult [address] [address] * (ABNORMAL) CBC (01/01/2023 9:14 AM EDT) WBC 3.56(L) 4.00 - 11.00 K/uL [facility] RBC 3.95 3.90 - 5.69 M/uL [facility] HGB 12.8 12.4 - 17.3 g/dL [facility] HCT 38.7 37.0 - 51.0 % [facility] PLT 139(L) 140 - 430 K/uL [facility] MCV 98.0(H) 78.0 - 97.0 fL [facility] MCH 32.4 25.0 - 33.0 pg [facility] MCHC 33.1 32.0 - 36.0 g/dL [facility] RDW 12.3 11.0 - 15.0 % [facility] MPV 10.0 8.4 - 12.8 fl [facility] Blood 01/01/2023 9:14 AM EDT 01/01/2023 9:21 AM EDT us Ti Fry MD LAB BLOOD ORDERABLES Final R esult [address] [address] * Tissue transglutaminase IgA (01/01/2023 9:14 AM EDT) TTG IGA ANTIBODY <1.2 <4.0 (Negative) U/mL [facility] Blood 01/01/2023 9:14 AM EDT 01/01/2023 9:21 AM EDT us Ti Fry MD LAB BLOOD ORDERABLES Final R esult [facility] [address] [place] [address] documented in this encounter Visit Diagnoses Diagnosis Celiac disease- Primary Chronic diarrhea of unknown origin Diarrhea Gastroesophageal reflux disease, unspecified whether esophagitis present documented in this encounter Additional Health Concerns Assessment Noted Time PHQ-2 Depression Total Score: 0 11/11/19 23 5:01 PM EDT documented as of this encounter Care Teams Vending Machine Attendant Relationship Specialty Start Date End Date Mary Ann Marshall MD [address] [place] [address] [email or web address] PCP - General Internal Medicine 03/10/17 Mary Ann Marshall MD [address] [place] [address] Historical LMR Provider 12/31/16 Mary Ann Marshall MD [address] [place] [address] Insurance Assigned Provider 06/19/24 documented as of this encounter Additional Source Comments The information contained in this document represents components of the legal health record. It is not the complete legal health record.[facility]
--- OUTSIDE RECORDS SUMMARY | 2024-11-17 21:10 | XMS_ITS | Encounter Summary ---
Author Organization [facility] Address [address] [facility] [address] [place] [address] Phone Care Team Providers Care Conservation Specialist Name Role Phone Marshall, Mary Ann A MD Unavailable Marshall, Mary Ann A MD Primary Care Provider [phone] Marshall, Mary Ann A MD Unavailable [phone] Encounter Details Date Type Department Care Team (Late st Contact Info) Description 05/27/2024 Transcribe Orders Virtual Department [address] [place] [address] Anabella Chauhan MD [address] [place] [address] [address] [place] [address] [email or web address] Other specified disorders of bone density and structure, other site (Primary Dx) Social History Tobacco Use Types [...] Description 12/12/2024 10:30 AM EDT Office Visit [facility] [address] [facility] 3rd Floor, [address] [place] [address] Judi Kat, ELLIS 22 [facility], [address] [place] [address] 04/06/2025 2:45 PM EST Appointment [facility], Bone Density - [facility] [address] [place] [address] Anabella Chauhan MD 33 [facility], [address] [place] [address] Scheduled Orders Name Type Priority Associated Diagnoses Orde r Schedule DXA Screening Imaging Routine Other specified disorders of bone density and structure, other site Expected: 06/26/2024, Expires: 05/27/2025 documented as of this encounter Visit Diagnoses Diagnosis Other specified disorders of bone density and structure, other site- Primary documented in this encounter Additional Health Concerns Assessment Noted Time PHQ-2 Depression Total Score: 0 11/11/19 23 5:01 PM EDT documented as of this encounter Care Teams Conservation Specialist Relationship Specialty Start Date End Date Mary Ann Marshall MD [address] [place] [address] PCP - General Internal Medicine 03/10/17 Mary Ann Marshall MD [address] [place] [address] Historical LMR Provider 12/31/16 Mary Ann Marshall MD [address] [place] [address] Insurance Assigned Provider 06/19/24 documented as of this encounter Additional Source Comments The information contained in this document represents components of the legal health record. It is not the complete legal health record.[facility]
--- OUTSIDE RECORDS SUMMARY | 2024-11-17 21:10 | XMS_ITS | Encounter Summary ---
Author Organization [facility], Address [address] [place] [address] Phone Care Team Providers Care Barker Operator Name Role Phone Mary Ann Marshall MD Primary Care Provider [phone] Encounter Details Date Type Department Care Team (Late st Contact Info) Description 09/15/2023 Documentation Only [facility] [address] [place] [address] Patricia Forbes [address] [place] [phone] Social History Tobacco Use Types Packs/Day [...] [facility] [address] ED[address] [place] [phone] Ermias Shine MD [address] [place] [address] [place] [address] documented as of this encounter Visit Diagnoses Not on filedocumented in this encounter Care Teams Barker Operator Relationship Specialty Start Date End Date Mary Ann Marshall MD [address] [place] [address], [address] [place] [address] PCP - General Internal Medicine 08/26/23 documented as of this encounter
--- OUTSIDE RECORDS SUMMARY | 2024-11-17 21:10 | XMS_ITS | Encounter Summary ---
Author Organization [facility] Address [address] [place] [address] Phone Care Team Providers Care Activity Coordinator Name Role Phone Marshall, Mary Ann A MD Unavailable [phone] Marshall, Mary Ann A MD Primary Care Provider Marshall, Mary Ann A MD Unavailable [phone] Encounter Details Date Type Department Care Team (Late st Contact Info) Description 04/16/2022 Transcribe Orders Virtual Department 30 [place] [address] Anabella Chauhan MD [address] [place] [address] [address] [place] [address] [email or web address] Other specified disorders of bone density and [...] high school, GED, job training, learning the Czech language, technical skills, or developing parenting skills)? [...] basis, and looking for work? No 11/11/2021 Sex and Gender Information Value Date Recorded Sex Assigned at Male 08/04/2023 2:25 AM EDT Legal Sex Male 9:54 PM EDT Gender Identity Male 08/04/2023 2:25 AM EDT Sexual Orientation Straight 08/04/2023 2: 25 AM EDT documented as of this encounter Plan of Treatment Upcoming Encounters Date Type Department Care Team (Late st Contact Info) Description 12/12/2024 10:30 AM EDT Office Visit [facility] [address] [place] [address] 3rd Floor, [address] [place] [address] Judi Kat, ELLIS 22 [facility], [address] [place] [address] 04/06/2025 2:45 PM EST Appointment [facility], Bone Density - [facility] 30 [place] [address] Anabella Chauhan MD [address] [place] [address] [address] [place] [address] documented as of this encounter Results * BD DXA AXIAL (SPINE) WITH HIP (09/25/2022 2:19 PM EDT) Anatomical Region Laterality Modality Bone Density Bone Density 10/01/2022 7:04 PM EDT Impressions 10/01/2022 7:06 PM EDT Bone mineral density falls within the osteopenia range. No statistically significant changes compared with 04/26/2019. Narrative 10/01/2022 7:06 PM EDT This is a 66-year-old male with a history of osteopenia. Compared with prior study 04/26/2019. Evaluation of the lumbar spine and left hip is obtained and appears technically adequate. The lumbar spine from L1, L3 and L4 discloses a total bone mineral density of 0.934 g/cm2 with a T-score of -1.4. Z score -0.6. This is in the osteopenia range. Your no statistically significant change compared with 04/26/2019. The left hip (total) has a total bone mineral density of 0.859 g/cm2 for a T- score of -1.2. Z score -0.6. This is in the osteopenia range. No statistically significant change compared with 04/26/2019. The left hip (neck) has a total bone mineral density of 0.697 g/cm2 with a T- score of -1.7. Z score -0.6. Procedure Note Ti Hodges MD - 10/01/2022 This is a 66-year-old male with a history of osteopenia. Compared with prior study 04/26/2019. Evaluation of the lumbar spine and left hip is obtained and appearstechnically adequate. The lumbar spine from L1, L3 and L4 discloses a total bone mineral densityof 0.934 g/cm2 with a T-score of -1.4. Z score -0.6. This is in theosteopenia range. Your no statistically significant change compared with04/26/2019. The left hip (total) has a total bone mineral density of 0.859 g/cm2 for aT- score of -1.2. Z score -0.6. This is in the osteopenia range. Nostatistically significant change compared with 04/26/2019. The left hip (neck) has a total bone mineral density of 0.697 g/cm2 with aT- score of -1.7. Z score -0.6. IMPRESSION: Bone mineral density falls within the osteopenia range. No statisticallysignificant changes compared with 04/26/2019. Anabella Chauhan MD IMG BD BONE DENSITY DEXA Fin al Result documented in this encounter Visit Diagnoses Diagnosis Other specified disorders of bone density and structure, other site- Primary Other specified disorders of bone density and structure, other site documented in this encounter Additional Health Concerns Assessment Noted Time PHQ-2 Depression Total Score: 0 11/12/19 22 8:21 AM EDT documented as of this encounter Care Teams Activity Coordinator Relationship Specialty Start Date End Date Mary Ann Marshall MD [address] [place] [address] PCP - General Internal Medicine 03/10/17 Mary Ann Marshall MD [address] [place] [address] Historical LMR Provider 12/31/16 Mary Ann Marshall MD [address] [place] [address] Insurance Assigned Provider 06/19/24 documented as of this encounter Additional Source Comments The information contained in this document represents components of the legal health record. It is not the complete legal health record.[facility]
--- OUTSIDE RECORDS SUMMARY | 2024-11-17 21:10 | XMS_ITS | Encounter Summary ---
Author Organization [facility] Address [address] [place] [address] Phone Care Team Providers Care Search Engine Optimization Manager Name Role Phone Marshall, Mary Ann A MD Unavailable [phone] Marshall, Mary Ann A MD Primary Care Provider [phone] Marshall, Mary Ann A MD Unavailable [phone] Encounter Details Date Type Department Care Team (Late st Contact Info) Description 08/20/2023 Transcribe Orders [facility] [address] [place] [address] [phone] Molly Lugo PA [address] [place] [address] [phone] [email or web address] Pancreatic insufficiency (Primary Dx) Social History Tobacco Use Types [...] high school, GED, job training, learning the Barb[place] language, technical skills, or developing parenting skills)? [...] Description 12/12/2024 10:30 AM EDT Office Visit [facility] [address] [place] [address] 3rd Floor, [address] [place] [address] Judi Kat, ELLIS 22 [facility], [address] [place] [address] 04/06/2025 2:45 PM EST Appointment [facility], Bone Density - [address] [address] Anabella Chauhan MD [address] [place] [address] [address] [place] [address] [email or web address] documented as of this encounter Results * Stool fat/fiber exam (08/21/2023 4:15 PM EDT) FATTY ACID NORMAL NORMAL [facility] Neutral Fat, stool NORMAL NORMAL [facility] Stool (Stool) 08/21/2023 4:1 5 PM EDT 08/21/2023 4:59 PM EDT Molly ARMENTA BODY FLUIDS AND STOOLS O RDERABLES Final Result [address] [address] * (ABNORMAL) Pancreatic Elastase, Stool (08/21/2023 4:15 PM EDT) Pancreatic Elastase, Feces 193(L) >200 (Normal) mcg/g [facility] Comment: (NOTE) Interpretation: Borderline (100-200 mcg/g); Consistent with slight to moderate pancreatic insufficiency Stool (Stool) 08/21/2023 4:1 5 PM EDT 08/21/2023 4:59 PM EDT Molly ARMENTA BODY FLUIDS AND STOOLS O RDERABLES Final Result [facility] [address] [place] [address] documented in this encounter Visit Diagnoses Diagnosis Pancreatic insufficiency- Primary Other specified disease of pancreas documented in this encounter Additional Health Concerns Assessment Noted Time PHQ-2 Depression Total Score: 0 11/11/19 23 5:01 PM EDT documented as of this encounter Care Teams Search Engine Optimization Manager Relationship Specialty Start Date End Date Mary Ann Marshall MD [address] [place] [address] [email or web address] PCP - General Internal Medicine 03/10/17 Mary Ann Marshall MD [address] [place] [address] [email or web address] Historical LMR Provider 12/31/16 Mary Ann Marshall MD [address] [place] [address] [email or web address] Insurance Assigned Provider 06/19/24 documented as of this encounter Additional Source Comments The information contained in this document represents components of the legal health record. It is not the complete legal health record.[facility]
--- OUTSIDE RECORDS SUMMARY | 2024-11-17 21:10 | XMS_ITS | Encounter Summary ---
Author Organization [facility] Address [address] [place] [address] Phone Care Team Providers Care Clinic Office Coordinator Name Role Phone Marshall, Mary Ann A MD Unavailable [phone] Marshall, Mary Ann A MD Primary Care Provider [phone] Marshall, Mary Ann A MD Unavailable Encounter Details Date Type Department Care Team (Late st Contact Info) Description 10/24/2021 Procedure Pass [facility]oscopy Admitting Dept Virtual Department 30 [place] [address] Social History Tobacco Use Types Packs/Day Years Used Date Smoking Tobacco: Never Smokeless Tobacco: Never Alcohol Use Standard Drinks/Week Comments No 0 (1 standard drink = 0.6 oz pur e alcohol) Child or Family Care Answer Date Record ed Do you have problems with on e of the following making it difficult for you to work, study, or receive health care? No 11/06/2020 Education Answer Date Recorded Are you interested in help w ith more adult education (for example, completing high school, GED, job training, learning the Honduran language, technical skills, or developing parenting skills)? No 11/06/2020 Are you concerned about learning? Not on file 11/06/2020 Not on file 11/06/2020 Not on file 11/06/2020 Food Answer Date Recorded Within the past 6 months we worried whether our food would run out before we got money to buy more. Never True 11/06/2020 Within the past 6 months the food we bought just didn't last and we didn't have enough money to get more. Never True Paying for Meds Answer Date Recorded Do you have trouble paying for medicines? No 11/06/2020 Paying Utility Bills Answer Date Record ed Do you have trouble paying your heating or elect ricity bill? No 11/06/2020 Transportation Answer Date Recorded Has the lack of transportati on kept you from medical appointments or from getting medications? No 11/06/2020 Sex and Gender Information Value Date Recorded Sex Assigned at Male 08/04/2023 2:25 AM EDT Legal Sex Male 9:54 PM EDT Gender Identity Male 08/04/2023 2:25 AM EDT Sexual Orientation Straight 08/04/2023 2: 25 AM EDT documented as of this encounter Plan of Treatment Upcoming Encounters Date Type Department Care Team (Late st Contact Info) Description 12/12/2024 10:30 AM EDT Office Visit [facility] [address] [place] [address] [address]rd [facility], [address] [place] [address] Judi Kat DNP [address] [address] 04/06/2025 2:45 PM EST Appointment [facility], Bone [address] [address] Anabella Chauhan MD [address] [place] [address] 8 [place] [address] documented as of this encounter Visit Diagnoses Not on filedocumented in this encounter Additional Health Concerns Infection Onset Date Last Indicated Resolved Time CoV-Risk Comment:Per Ambulatory Triage Form 2021 12/03/202112/14 1:22 AM EDT Assessment Noted Time PHQ-2 Depression Total Score: 0 11/07/19 3:20 PM EDT documented as of this encounter Care Teams Clinic Office Coordinator Relationship Specialty Start Date End Date Mary Ann Marshall MD [address] [place] [address], 2nd [place] [address] [email or web address] PCP - General Internal Medicine 03/10/17 Mary Ann Marshall MD [address] [place] [address] [email or web address] Historical LMR Provider 12/31/16 Mary Ann Marshall MD [address] [place] [address] [email or web address] Insurance Assigned Provider 06/19/24 documented as of this encounter Additional Source Comments The information contained in this document represents components of the legal health record. It is not the complete legal health record.[facility]
--- OUTSIDE RECORDS SUMMARY | 2024-11-17 21:10 | XMS_ITS | Encounter Summary ---
Author Organization Formerly [facility] Address [address] [place] [address] [place] [address] Phone Care Team Providers Care Mica Patcher Name Role Phone Marquis Yao MD Unavailable + Declan Davey MD Unavailable [phone] Mary Ann Marshall MD Unavailable Giselle Willard PA-C Unavailable [phone] Lai Rockwell MD Unavailable Marianna Vazquez MD Unavailable Mary Ann Marshall MD Primary Care Provider Mary Ann Marshall MD Unavailable Encounter Details Date Type Department Care Team (Late st Contact Info) Description 09/07/2017 Transcribe Orders [address] [place] [address] Anabella Chauhan MD 33 [facility], [address] [place] [address] Other specified disorders of bone density and structure, other site (Primary Dx); Other osteonecrosis, left femur Social History Tobacco Use Types Packs/Day Years [...] Description 12/12/2024 10:30 AM EDT Office Visit [facility] 22 [facility] 3rd Floor, [address] [place] [address] Judi Kat, ELLIS 22 [facility], [address] [place] [address] 04/06/2025 2:45 PM EST Appointment [facility], Bone Density - [address] [address] Anabella Chauhan MD [address] [place] [address], [address] [place] [address] documented as of this encounter Results * Hemoglobin A1c (09/07/2017 7:58 AM EDT) HEMOGLOBIN A1C 5.1 4.3 - 5.8 % [facility] Blood 09/07/2017 7:58 AM EDT 09/07/2017 8:03 AM EDT us Anabella Chauhan MD LAB BLOOD ORDERABLES Final R esult [address] [address] * (ABNORMAL) Lipid panel (09/07/2017 7:58 AM EDT) HDL 56 mg/dL [facility] Comment: Interpretation: Risk Level Males Decreased >45 mg/dL Average 40-45 mg/dL Increased <40 mg/dL CHOLESTEROL 134 0 - 240 mg/dL [facility] TRIGLYCERIDES 37 30 - 160 mg/dL [facility] LDL 71 50 - 129 mg/dL [facility] Comment: LDL levels in terms of risk for coronary heart disease: <100 mg/dL: Optimal 100-129 mg/dL: Near or above optimal 130-159 mg/dL: Borderline high 160-189 mg/dL: High >190 mg/dL: Very High CARDIAC RISK RATIO 2.4(L) 3.4 - 5.0 C [facility] Blood 09/07/2017 7:58 AM EDT 09/07/2017 8:03 AM EDT us Anabella Chauhan MD LAB BLOOD ORDERABLES Final R esult Performing Organization Address [facility] Co de Phone Number [address] [address] * Cortisol AM (09/07/2017 7:58 AM EDT) CORTISOL AM 14.0 6.2 - 19.4 ug/dL [facility] Blood 09/07/2017 7:58 AM EDT 09/07/2017 8:03 AM EDT us Anabella Chauhan MD LAB BLOOD ORDERABLES Final R esult Performing Organization Address [facility] Co de Phone Number [address] [address] * Magnesium (09/07/2017 7:58 AM EDT) MAGNESIUM 1.8 1.6 - 2.6 mg/dL [facility] Blood 09/07/2017 7:58 AM EDT 09/07/2017 8:03 AM EDT us Anabella Chauhan MD LAB BLOOD ORDERABLES Final R esult Performing Organization Address [facility] Co de Phone Number [address] [address] * 1-25-OH vitamin D (09/07/2017 7:58 AM EDT) 1,25 (OH) 2 Vitamin D3 40 18 - 64 pg/mL [facility] Comment: (NOTE) ADDITIONAL INFORMATION This test was developed and its performance characteristics determined by [facility] in a manner consistent with CLIA requirements. This test has not been cleared or approved by the U.S. Food and Drug Administration. Blood 09/07/2017 7:58 AM EDT 09/07/2017 8:03 AM EDT Anabella Chauhan MD LAB BLOOD ORDERABLES Final R esult [facility] LAB MED/[facility] [address] [place] [address] * 25-OH vitamin D (09/07/2017 7:58 AM EDT) Pathologist [facility] 25 OH VIT D (TOTAL) 32 30 - 1,000 ng/mL [facility] Blood 09/07/2017 7:58 AM EDT 09/07/2017 8:03 AM EDT Anabella Chauhan MD LAB BLOOD ORDERABLES Final R esult Performing Organization Address City/[facility]/ZIP Co de Phone Number [address] [address] * Basic metabolic panel (09/07/2017 7:58 AM EDT) [facility] SODIUM 143 133 - 146 mmol/L [facility] CHLORIDE 106 96 - 108 mmol/L [facility] POTASSIUM 4.2 3.3 - 5.1 mmol/L [facility] CO2 26 21 - 35 mmol/L [facility] BUN 17 6 - 19 mg/dL [facility] CREATININE 0.90 0.5 - 1.5 mg/dL [facility] GLUCOSE 76 70 - 99 mg/dL [facility] CALCIUM 9.2 8.4 - 10.3 mg/dL [facility] EGFR 92 >59 mL/min/1.7 3m2 [facility] Comment:If patient is black, multiply result by 1.159. Estimated glomerular filtration rate calculated using the CKD-EPI equation. ANION GAP 15 10 - 20 mmol/L [facility] Blood 09/07/2017 7:58 AM EDT 09/07/2017 8:03 AM EDT us Anabella Chauhan MD LAB BLOOD ORDERABLES Final R esult Performing Organization Address [facility] Co de Phone Number [address] [address] * Calcium, 24 hour urine (09/07/2017 6:30 AM EDT) URINE CALCIUM 5.5 mg/dL [facility] CALCIUM OUTPUT 127 100 - 300 mg/total output [facility] Urine (Urine) 09/07/2017 6:3 0 AM EDT 09/07/2017 8:03 AM EDT us Anabella Chauhan MD URINE ORDERABLES Final Resul t Performing Organization Address [facility] Co de Phone Number [address] [address] documented in this encounter Visit Diagnoses Diagnosis Other specified disorders of bone density and structure, other site- Primary Other osteonecrosis, left femur documented in this encounter Additional Health Concerns Infection Onset Date Last Indicated Resolved Time CoV-Risk Comment:Per Ambulatory Triage Form 2021 12/03/202112/14 1:22 AM EDT Assessment Noted Time PHQ-2 Depression Total Score: 0 03/31/19 18 1:47 PM EST documented as of this encounter Care Teams Mica Patcher Relationship Specialty Start Date End Date Mary Ann Marshall MD [address] [place] [address], 2nd [place] [address] PCP - General Internal Medicine 03/10/17 Marquis Yao MD [address] [place] [phone] [email or web address] Historical LMR Provider 12/31/16 03/23/21 Declan Davey MD [address] [place] [address] [email or web address] Historical LMR Provider 12/31/16 03/23/21 Mary Ann Marshall MD [address] [place] [address] Historical LMR Provider 12/31/16 Giselle Willard PA-C [address] [place] [address] [facility], [place] [address] Historical LMR Provider 12/31/16 03/23/21 Lai Rockwell MD [address] [place] [phone] Historical LMR Provider 12/31/16 2 Marianna Vazquez MD [address] [place] [address] [facility], [place] [address] Historical LMR Provider 12/31/16 Mary Ann Marshall MD [address] [place] [address] Insurance Assigned Provider 06/19/24 documented as of this encounter Additional Source Comments The information contained in this document represents components of the legal health record. It is not the complete legal health record.[facility]
--- OUTSIDE RECORDS SUMMARY | 2024-11-17 21:10 | XMS_ITS | Encounter Summary ---
Author Organization [facility] Address [address] [place] [address] [place] [address] Phone Care Team Providers Care Carpet Installation Specialist Name Role Phone Marquis Yao MD Unavailable + Declan Davey MD Unavailable [phone] Mary Ann Marshall MD Unavailable Giselle Willard PA-C Unavailable [phone] Lai Rockwell MD Unavailable Marianna Vazquez MD Unavailable Mary Ann Marshall MD Primary Care Provider [phone] Mary Ann Marshall MD Unavailable [phone] Encounter Details Date Type Department Care Team (Late st Contact Info) Description 06/05/2017 Transcribe Orders [address] Valle SHAE [phone] Anabella Chauhan MD 33 [facility], [address] [place] [address] Other specified disorders of bone density and [...] Description 12/12/2024 10:30 AM EDT Office Visit [facility] 22 [facility] 3rd Floor, [address] [place] [address] Judi Kat, ELLIS 22 [facility], [address] [place] [address] 04/06/2025 2:45 PM EST Appointment [facility], [address] [address] Anabella Chauhan MD [address] [place] [address], [address] [place] [address] documented as of this encounter Results * Prolactin (06/05/2017 11:17 AM EDT) PROLACTIN 7.0 4.0 - 15.2 ng/mL [facility] Blood 06/05/2017 11:1 7 AM EDT 06/05/2017 11:22 AM EDT us Anabella Chauhan MD LAB BLOOD ORDERABLES Final R esult [address] [address] * LH (06/05/2017 11:17 AM EDT) LH 7.3 IU/L [facility] Comment: Interpretation: MALE: 1.7 - 8.6 mIU/ml Blood 06/05/2017 11:1 7 AM EDT 06/05/2017 11:22 AM EDT us Anabella Chauhan MD LAB BLOOD ORDERABLES Final R esult [address] [address] * FSH (06/05/2017 11:17 AM EDT) FSH 5.4 IU/L [facility] Comment:MALE: 1.5-12.5 mIU/m L Blood 06/05/2017 11:1 7 AM EDT 06/05/2017 11:22 AM EDT Anabella Chauhan MD LAB BLOOD ORDERABLES Final R esult Performing Organization Address City/[facility] Co de Phone Number [address] [address] * (ABNORMAL) CBC (06/05/2017 11:17 AM EDT) WBC 3.16(L) 3.40 - 11.20 K/uL [facility] RBC 4.47(L) 4.50 - 5.50 M/uL [facility] HGB 14.8 13.0 - 17.0 g/dL [facility] HCT 42.0 40.0 - 51.0 % [facility] PLT 141 130 - 400 K/uL [facility] MCV 94.0 79.0 - 98.0 [facility] MCH 33.1 27.0 - 34.8 pg [facility] MCHC 35.2 31.5 - 36.0 g/dL [facility] RDW 12.1 10.8 - 14.6 % [facility] MPV 9.9 9.4 - 12.4 [facility] NRBC 0.00 /100 WBCs [facility] ABSOLUTE NRBC 0.00 K/uL [facility] Blood 06/05/2017 11:1 7 AM EDT 06/05/2017 11:22 AM EDT us Anabella Chauhan MD LAB BLOOD ORDERABLES Final R esult Performing Organization Address City/[facility]/ZIP Co de Phone Number [address] [address] * PSA (screening) (06/05/2017 11:17 AM EDT) PSA 0.95 0 - 4.00 ng/mL [facility] Blood 06/05/2017 11:1 7 AM EDT 06/05/2017 11:21 AM EDT Result [facility] Anabella Chauhan MD LAB BLOOD ORDERABLES Final R esult Performing Organization Address City/[facility] Co de Phone Number [address] [address] * Testosterone bioavailable, serum (06/05/2017 11:17 AM EDT) BIOAVAIL TESTOST 61 40 - 168 ng/dL [facility] Comment: (NOTE) ADDITIONAL INFORMATION Testing performed by Differential Precipitation. This test was developed and its performance characteristics determined by [facility] in a manner consistent with CLIA requirements. This test has not been cleared or approved by the U.S. Food and Drug Administration. TESTOSTERONE, TOTAL 434 240 - 950 ng/dL [facility] Comment: (NOTE) ADDITIONAL INFORMATION Testing performed by Liquid Chromatography-Tandem Mass Spectrometry (LC-MS/MS). This test was developed and its performance characteristics determined by [facility] in a manner consistent with CLIA requirements. This test has not been cleared or approved by the U.S. Food and Drug Administration. Blood 06/05/2017 11:1 7 AM EDT 06/05/2017 11:22 AM EDT us Anabella Chauhan MD LAB BLOOD ORDERABLES Final R esult [facility] [address] [place] [address] * Testosterone, total (06/05/2017 11:17 AM EDT) TESTOSTERONE 408 72 - 623 ng/dL [facility] Comment:Upper Limit Measurin g Range has changed from >2160 ng/dL to >1000 ng/dL effective 03/27/2017. Blood 06/05/2017 11:1 7 AM EDT 06/05/2017 11:22 AM EDT Anabella Chauhan MD LAB BLOOD ORDERABLES Final R esult [facility] [address] [place] [address] documented in this encounter Visit Diagnoses Diagnosis Other specified disorders of bone density and structure, other site- Primary documented in this encounter Additional Health Concerns Infection Onset Date Last Indicated Resolved Time CoV-Risk Comment:Per Ambulatory Triage Form 2021 12/03/202112/14 1:22 AM EDT Assessment Noted Time PHQ-2 Depression Total Score: 0 03/31/19 18 1:47 PM EST documented as of this encounter Care Teams Carpet Installation Specialist Relationship Specialty Start Date End Date Mary Ann Marshall MD [address] [place] [address], 2nd [place] [address] PCP - General Internal Medicine 03/10/17 Marquis Yao MD [address] [place] [phone] [email or web address] Historical LMR Provider 12/31/16 03/23/21 Declan Davey MD [address] [place] [address] [email or web address] Historical LMR Provider 12/31/16 03/23/21 Mary Ann Marshall MD [address] [place] [address] Historical LMR Provider 12/31/16 Giselle Willard PA-C [address] [place] [address] Orthopedics & Sports Medicine, [facility] [place] [address] [email or web address] Historical LMR Provider 12/31/16 03/23/21 Lai Rockwell MD [address] [place] [phone] Historical LMR Provider 12/31/16 2 Marianna Vazquez MD [address] [place] [address] [facility], [place] [address] Historical LMR Provider 12/31/16 Mary Ann Marshall MD [address] [place] [address] Insurance Assigned Provider 06/19/24 documented as of this encounter Additional Source Comments The information contained in this document represents components of the legal health record. It is not the complete legal health record.[facility]
--- OUTSIDE RECORDS SUMMARY | 2024-11-17 21:10 | XMS_ITS | Encounter Summary ---
Author Organization [facility] Address [address] [place] [address] Phone Care Team Providers Care Pharmacy Sales Representative Name Role Phone Marquis Yao MD Unavailable + Declan Davey MD Unavailable [phone] Mary Ann Marshall MD Unavailable Giselle Willard PA-C Unavailable [phone] Lai Rockwell MD Unavailable Marianna Vazquez MD Unavailable Mary Ann Marshall MD Primary Care Provider [phone] Mary Ann Marshall MD Unavailable Encounter Details Date Type Department Care Team (Latest Contact Info) Description 08/21/2018 Transcribe Orders [facility] Laboratory [address] [place] [address] Deangelo Rubio MD [facility], [address] [place] [address] [email or web address] Enlarged prostate with urinary obstruction (Primary Dx) Social History Tobacco Use Types [...] Description 12/12/2024 10:30 AM EDT Office Visit [facility] 22 [facility] 3rd Floor, [address] [place] [address] Judi Kat, ELLIS 22 [facility], [address] [place] [address] 04/06/2025 2:45 PM EST Appointment [facility], Bone [address] [address] Anabella Chauhan MD [address] [place] [address], [address] [place] [address] [email or web address] documented as of this encounter Results * PSA (screening) (08/21/2018 11:03 AM EDT) PSA 1.26 0 - 4.00 ng/mL [facility] Blood 08/21/2018 11:0 3 AM EDT 08/21/2018 11:07 AM EDT us Deangelo Rubio MD LAB BLOOD ORDERABLES Final Resu lt [address] [address] documented in this encounter Visit Diagnoses Diagnosis Enlarged prostate with urinary obstruction- Primary Hypertrophy of prostate with urinary obstruction and other lower urinary tract symptoms (LUTS) documented in this encounter Additional Health Concerns Infection Onset Date Last Indicated Resolved Time CoV-Risk Comment:Per Ambulatory Triage Form 2021 12/03/202112/14 1:22 AM EDT Assessment Noted Time PHQ-2 Depression Total Score: 0 04/27/19 2:39 PM EST documented as of this encounter Care Teams Pharmacy Sales Representative Relationship Specialty Start Date End Date Mary Ann Marshall MD [address] [place] [address] PCP - General Internal Medicine 03/10/17 Marquis Yao MD [address] [place] [phone] [email or web address] Historical LMR Provider 12/31/16 03/23/21 Declan Davey MD [address] [place] [address] [email or web address] Historical LMR Provider 12/31/16 03/23/21 Mary Ann Marshall MD [address] [place] [address] Historical LMR Provider 12/31/16 Giselle Willard PA-C [address] [place] [address] Orthopedics & Sports [facility], [place] [address] Historical LMR Provider 12/31/16 03/23/21 Lai Rockwell MD [address] [place] [phone] Historical LMR Provider 12/31/16 2 Marianna Vazquez MD [address] [place] [address] [facility], [place] [address] [email or web address] Historical LMR Provider 12/31/16 Mary Ann Marshall MD [address] [place] [address], [address] [place] [address] [email or web address] Insurance Assigned Provider 06/19/24 documented as of this encounter Additional Source Comments The information contained in this document represents components of the legal health record. It is not the complete legal health record.[facility]
--- OUTSIDE RECORDS SUMMARY | 2024-11-17 21:10 | XMS_ITS | Encounter Summary ---
Author Organization [facility] Address [address] [facility] [address] [place] [address] Phone Care Team Providers Care Fleecer Name Role Phone Marshall, Mary Ann A MD Unavailable [phone] Marshall, Mary Ann A MD Primary Care Provider [phone] Marshall, Mary Ann A MD Unavailable [phone] Encounter Details Date Type Department Care Team (Late st Contact Info) Description 08/04/2023 Procedure Pass [facility], Ct Scan - [facility] [address] [place] [address] Social History Tobacco Use Types Packs/Day Years [...] high school, GED, job training, learning the [place]onegas[place] language, technical skills, or developing parenting skills)? [...] AM EDT documented as of this encounter Functional Status * Calculated C-SSRS Risk Score (Lifetime/Recent) Answer Date of Assessment Author No Risk Indicated 08/04/2023 2:25 AM EDT Melvi Isidro, BONY * [place] Suicide Severity Rating Scale (Screener/Recent Self-Report) Question Answer Date of Assessment Author 1. Wish to be (Past 1 Month) No 08/04/2023 2:25 AM EDT Melvi Isidro RN 2. Non-Specific Active Suicidal Thoughts (Past 1 Month) No 08/04/2023 2:25 AM EDT Melvi Isidro RN 6. Suicidal Behavior (Lifetime) No 08/04/2023 2:25 AM EDT Melvi Isidro RN documented as of this encounter Plan of Treatment Upcoming Encounters Date Type Department Care Team (Late st Contact Info) Description 12/12/2024 10:30 AM EDT Office Visit [facility] 22 [facility] 3rd Floor, [address] [place] [address] Judi Kat, ELLIS 22 [facility], [address] [place] [address] 04/06/2025 2:45 PM EST Appointment [facility], Bone Density - [facility] [address] [place] [address] Anabella Chauhan MD 33 [facility] 8 [place] [address] documented as of this encounter Visit Diagnoses Not on filedocumented in this encounter Additional Health Concerns Assessment Noted Time PHQ-2 Depression Total Score: 0 11/11/19 23 5:01 PM EDT documented as of this encounter Care Teams Fleecer Relationship Specialty Start Date End Date Mary Ann Marshall MD [address] [place] [address] PCP - General Internal Medicine 03/10/17 Mary Ann Marshall MD [address] [place] [address] Historical LMR Provider 12/31/16 Mary Ann Marshall MD [address] [place] [address] [email or web address] Insurance Assigned Provider 06/19/24 documented as of this encounter Additional Source Comments The information contained in this document represents components of the legal health record. It is not the complete legal health record.[facility]
--- OUTSIDE RECORDS SUMMARY | 2024-11-17 21:10 | XMS_ITS | Encounter Summary ---
Author Organization [facility], Address [address] [place] [address] Phone Care Team Providers Care Bag Sealer Name Role Phone Mary Ann Marshall MD Primary Care Provider [phone] Encounter Details Date Type Department Care Team (Late st Contact Info) Description 09/22/2023 Documentation Only [facility] [address] [place] [address] Patricia Forbes [address] [place] [phone] Social History Tobacco Use Types Packs/Day [...] Visit [facility] [address] Neel EDWARD [address] [place] [phone] Ermias Shine MD [address] [place] [address] [place] [address] documented as of this encounter Visit Diagnoses Not on filedocumented in this encounter Care Teams Bag Sealer Relationship Specialty Start Date End Date Mary Ann Marshall MD [address] [place] [address], [address] [place] [address] PCP - General Internal Medicine 08/26/23 documented as of this encounter
--- OUTSIDE RECORDS SUMMARY | 2024-11-17 21:10 | XMS_ITS | Encounter Summary ---
Author Organization [facility] Address [address] [place] [address] [place] [phone] Phone Care Team Providers Care Boat Joiner Name Role Phone Marquis Yao MD Unavailable + Declan Davey MD Unavailable [phone] Mary Ann Marshall MD Unavailable [phone] Giselle Willard PA-C Unavailable [phone] Lai Rockwell MD Unavailable Marianna Vazquez MD Unavailable Mary Ann Marshall MD Primary Care Provider Mary Ann Marshall MD Unavailable Encounter Details Date Type Department Care Team (Late st Contact Info) Description 08/30/2018 Transcribe Orders [address] Valle SHAE [phone] Anabella Chauhan MD [address] [facility], [address] [place] [address] Other specified disorders of bone density and [...] Description 12/12/2024 10:30 AM EDT Office Visit [facility] [address] [facility] 3rd Floor, [address] [place] [address] Judi Kat, ELLIS [address] [facility], [address] [place] [address] 04/06/2025 2:45 PM EST Appointment [facility], Bone Density [address] [address] Anabella Chauhan MD [address] [place] [address], [address] [place] [address] documented as of this encounter Results * 25-OH vitamin D (08/30/2018 9:29 AM EDT) 25 OH VIT D (TOTAL) 42 30 - 60 ng/mL [facility] Blood 08/30/2018 9:29 AM EDT 08/30/2018 9:34 AM EDT us Anabella Chauhan MD LAB BLOOD ORDERABLES Final R esult [address] [address] * (ABNORMAL) Basic metabolic panel (08/30/2018 9:29 AM EDT) SODIUM 141 133 - 146 mmol/L [facility] CHLORIDE 103 96 - 108 mmol/L [facility] POTASSIUM 4.2 3.3 - 5.1 mmol/L [facility] CO2 28 21 - 35 mmol/L [facility] BUN 17 6 - 19 mg/dL [facility] CREATININE 0.90 0.5 - 1.5 mg/dL [facility] GLUCOSE 147(H) 70 - 99 mg/dL [facility] CALCIUM 9.5 8.4 - 10.3 mg/dL [facility] EGFR 91 >59 mL/min/1.7 3m2 [facility] Comment:If patient is black, multiply result by 1.159. Estimated glomerular filtration rate calculated using the CKD-EPI equation. ANION GAP 14 10 - 20 mmol/L [facility] Blood 08/30/2018 9:29 AM EDT 08/30/2018 9:34 AM EDT us Anabella Chauhan MD LAB BLOOD ORDERABLES Final R esult Performing Organization Address [facility] Co de Phone Number [address] [address] * Calcium, 24 hour urine (08/30/2018 6:45 AM EDT) URINE CALCIUM 12.3 mg/dL [facility] CALCIUM OUTPUT 277 100 - 300 mg/total output [facility] Urine (Urine) 08/30/2018 6:4 5 AM EDT 08/30/2018 9:35 AM EDT Result Devon Chauhan MD URINE ORDERABLES Final Resul t Performing Organization Address [facility] Co de Phone Number [address] [address] documented in this encounter Visit Diagnoses Diagnosis Other specified disorders of bone density and structure, other site- Primary documented in this encounter Additional Health Concerns Infection Onset Date Last Indicated Resolved Time CoV-Risk Comment:Per Ambulatory Triage Form 2021 12/03/202112/14 1:22 AM EDT Assessment Noted Time PHQ-2 Depression Total Score: 0 04/27/19 2:39 PM EST documented as of this encounter Care Teams Boat Joiner Relationship Specialty Start Date End Date Mary Ann Marshall MD [address] [address] PCP - General Internal Medicine 03/10/17 Marquis Yao MD [address] [place] [address] [email or web address] Historical LMR Provider 12/31/16 03/23/21 Declan Davey MD [address] [place] [address] [email or web address] Historical LMR Provider 12/31/16 03/23/21 Mary Ann Marshall MD [address] [place] [address] [email or web address] Historical LMR Provider 12/31/16 Giselle Willard PA-C [address] [place] [address] [facility], [place] [address] Historical LMR Provider 12/31/16 03/23/21 Lai Rockwell MD [address] [place] [phone] Historical LMR Provider 12/31/16 Marianna Pollard MD [address] [place] [address] [facility], [place] [address] Historical LMR Provider 12/31/16 Mary Ann Marshall MD [address] [place] [address], 2nd [place] [address] [email or web address] Insurance Assigned Provider 06/19/24 documented as of this encounter Additional Source Comments The information contained in this document represents components of the legal health record. It is not the complete legal health record.[facility]
--- OUTSIDE RECORDS SUMMARY | 2024-11-17 21:10 | XMS_ITS | Encounter Summary ---
Author Organization [facility], Address [address] [place] [address] Phone Care Team Providers Care Filing Machine Operator Name Role Phone Mary Ann Marshall MD Primary Care Provider [phone] Encounter Details Date Type Department Care Team (Late st Contact Info) Description 09/22/2023 Documentation Only [facility] [address] [place] [address] Patricia Forbes [address] [place] [phone] Social History Tobacco Use Types Packs/Day [...] Visit [facility] [address] [place] [address] [place] [phone] Ermias Shine MD [address] [place] [address] [place] [address] documented as of this encounter Visit Diagnoses Not on filedocumented in this encounter Care Teams Filing Machine Operator Relationship Specialty Start Date End Date Mary Ann Marshall MD [address] [place] [address], 2[address] [place] [address] PCP - General Internal Medicine 08/26/23 documented as of this encounter
--- OUTSIDE RECORDS SUMMARY | 2024-11-17 21:10 | XMS_ITS | Encounter Summary ---
Author Organization [facility] Address [address] [place] [phone] Phone Care Team Providers Care [facility] Clergy Name Role Phone Marshall, Mary Ann A MD Unavailable [phone] Marshall, Mary Ann A MD Primary Care Provider [phone] Marshall, Mary Ann A MD Unavailable [phone] Encounter Details Date Type Department Care Team (Latest Contact Info) Description 08/22/2022 Transcribe Orders [facility] Laboratory [address] 2nd [place] [address] Lyndsay Barron PA-C [address] [place] [address] [email or web address] Celiac disease (Primary Dx); Loose stools; Gastroesophageal reflux disease without esophagitis Social History Tobacco Use Types Packs/Day Years [...] high school, GED, job training, learning the Togolese language, technical skills, or developing parenting skills)? [...] Description 12/12/2024 10:30 AM EDT Office Visit [facility] [address] [place] [address] 3rd Floor, [address] [place] [address] Judi Kat, ELLIS [address] [facility], [address] [place] [address] 04/06/2025 2:45 PM EST Appointment [facility], Bone Density - [address] [address] Anabella Chauhan MD [address] [place] [address], [address] [place] [address] [email or web address] documented as of this encounter Results * Fecal immunochemical test x1 (FIT) (09/03/2022 5:01 PM EDT) Immuno Fecal Occult Negative Negative [facility] Stool (Stool) 09/03/2022 5:0 1 PM EDT 09/08/2022 5:10 PM EDT Lyndsay Barron PA-C BODY FLUIDS AND STOOLS ORDERABL ES Final Result Performing Organization Address [facility]/ZIP Co de Phone Number [address] [address] * (ABNORMAL) Pancreatic Elastase, Stool (09/03/2022 1:30 PM EDT) Pancreatic Elastase, Feces 123(L) >200 (Normal) mcg/g [facility] Comment: (NOTE) Interpretation: Borderline (100-200 mcg/g); Consistent with slight to moderate pancreatic insufficiency Stool (Stool) 09/03/2022 1:3 0 PM EDT 09/03/2022 2:27 PM EDT Lyndsay Barron PA-C BODY FLUIDS AND STOOLS ORDERABL ES Final Result [facility] [address] [place] [place] [address] * (ABNORMAL) Stool fat/fiber exam (09/03/2022 1:30 PM EDT) FATTY ACID INCREASED(A ) NORMAL [facility] Neutral Fat, stool NORMAL NORMAL [facility] Stool (Stool) 09/03/2022 1:3 0 PM EDT 09/03/2022 2:27 PM EDT Lyndsay Barron PA-C BODY FLUIDS AND STOOLS ORDERABL ES Final Result [facility] [address] [place] [address] * Giardia antigen screen (09/03/2022 1:30 PM EDT) ST GIARDIA ANTIGEN Negative Negative [facility]+ Comment: (NOTE) ADDITIONAL INFORMATION Test Performed by Enzyme Immunoassay. Stool (Stool) 09/03/2022 1:3 0 PM EDT 09/03/2022 2:27 PM EDT us Lyndsay Barron PA-C MICROBIOLOGY - GENERAL ORDERABL ES Final Result Performing Organization Address [facility] Co de Phone Number [facility] PAT+ [address] [place] [address] * Calprotectin, stool (09/03/2022 1:30 PM EDT) STOOL CALPROTECTIN 72 mcg/g [facility]/Annette RUBALCAVA [facility] Comment: (NOTE) Reference Range: <50 Normal 50-120 Borderline >120 Elevated Calprotectin in Crohn's disease and ulcerative colitis can be five to several thousand times above the reference population (50 mcg/g or less). Levels are usually 50 mcg/g or less in healthy patients and with irritable bowel syndrome. Repeat testing in 4-6 weeks is suggested for borderline values. Stool (Stool) 09/03/2022 1:3 0 PM EDT 09/03/2022 2:27 PM EDT us Lyndsay Barron PA-C BODY FLUIDS AND STOOLS ORDERABL ES Final Result [facility] [address] [place] [address], [place] [phone] * Stool culture (09/03/2022 1:30 PM EDT) Special Requests None 09/03/2022 2:24 PM EDT [facility] Stool Culture NO SALMONELLA, SHIGELLA OR CAMPYLOBACTER ISOLATED 09/04/2022 8:08 AM EDT [facility] Stool (Stool) 09/03/2022 1:3 0 PM EDT 09/03/2022 2:27 PM EDT Comment:STOOL Lyndsay Barron PA-C MICROBIOLOGY - GENERAL ORDERABL ES Final Result [facility] [address] [place] [address] * Ova and parasites, stool (09/03/2022 10:30 AM EDT) Parasitic exam FINAL 3 1652 [facility] Comment: (NOTE) SOURCE: STOOL OVA AND PARASITE, MICROSCOPY, F FINAL No parasites seen. Cryptosporidium, Cyclospora, and microsporidia are not readily detected by this method. Single negative specimen does not rule out parasitic infection. Stool (Stool) 09/03/2022 10: 30 AM EDT 09/03/2022 2:27 PM EDT Lyndsay Barron PA-C MICROBIOLOGY - GENERAL ORDERABL ES Final Result [facility] [address] [place] [address] * Ova and parasites, stool (09/02/2022 3:30 PM EDT) Parasitic exam FINAL 3 1542 [facility] Comment: (NOTE) SOURCE: STOOL OVA AND PARASITE, MICROSCOPY, F FINAL No parasites seen. Cryptosporidium, Cyclospora, and microsporidia are not readily detected by this method. Single negative specimen does not rule out parasitic infection. Stool (Stool) 09/02/2022 3:3 0 PM EDT 09/03/2022 2:26 PM EDT Lyndsay Barron PA-C MICROBIOLOGY - GENERAL ORDERABL ES Final Result Performing Organization Address City/[facility]/ZIP Co de Phone Number [facility]+ [address] [place] [address] * Ova and parasites, stool (08/31/2022 7:30 PM EDT) Parasitic exam FINAL 3 1605 [facility] Comment: (NOTE) SOURCE: STOOL OVA AND PARASITE, MICROSCOPY, F FINAL No parasites seen. Cryptosporidium, Cyclospora, and microsporidia are not readily detected by this method. Single negative specimen does not rule out parasitic infection. Stool (Stool) 08/31/2022 7:3 0 PM EDT 09/03/2022 2:26 PM EDT us Lyndsay Barron PA-C MICROBIOLOGY - GENERAL ORDERABL ES Final Result Performing Organization Address [facility]/ZIP Co de Phone Number [facility]+ [address] [place] [address] * TSH (08/22/2022 9:17 AM EDT) TSH 2.28 0.27 - 4.20 uIU/mL [facility] Blood 08/22/2022 9:17 AM EDT 08/22/2022 9:26 AM EDT Lyndsay Barron PA-C LAB BLOOD ORDERABLES Final Resu lt [facility] [address] [place] [address] * Lipase (08/22/2022 9:17 AM EDT) LIPASE 21 16 - 63 U/L [facility] Blood 08/22/2022 9:17 AM EDT 08/22/2022 9:26 AM EDT us Lyndsay Barron PA-C LAB BLOOD ORDERABLES Final Resu lt [address] [address] * C-Reactive Protein (08/22/2022 9:17 AM EDT) C REACTIVE PROTEIN <3.0 0.0 - 4.0 mg/L [facility] Blood 08/22/2022 9:17 AM EDT 08/22/2022 9:26 AM EDT us Lyndsay Barron PA-C LAB BLOOD ORDERABLES Final Resu lt Performing Organization Address [facility]/ZIP Co de Phone Number [address] [address] * (ABNORMAL) Comprehensive metabolic panel (08/22/2022 9:17 AM EDT) SODIUM 139 133 - 146 mmol/L [facility] POTASSIUM 4.3 3.3 - 5.1 mmol/L [facility] CHLORIDE 105 96 - 108 mmol/L [facility] CO2 25 21 - 35 mmol/L [facility] BUN 20(H) 6 - 19 mg/dL [facility] CREATININE 1.10 0.5 - 1.5 mg/dL [facility] GLUCOSE 116(H) 70 - 99 mg/dL [facility] ALBUMIN 4.0 3.9 - 4.8 g/dL [facility] TOTAL PROTEIN 6.3(L) 6.5 - 8.0 g/dL [facility] CALCIUM 9.4 8.4 - 10.3 mg/dL [facility] ALKALINE PHOSPHATASE 61 39 - 117 U/L [facility] TOTAL BILIRUBIN 0.6 0.0 - 1.2 mg/dL [facility] AST 23 0 - 37 U/L [facility] ALT 15 0 - 40 U/L [facility] GLOBULIN 2.3 1 - 4.8 g/dL [facility] EGFR 74 >59 mL/min/1.7 3m2 [facility] Comment:Estimated glomerular filtration rate calculated using the CKD-EPI refit equation. ANION GAP 13 10 - 20 mmol/L [facility] Blood 08/22/2022 9:17 AM EDT 08/22/2022 9:26 AM EDT Lyndsay Barron PA-C LAB BLOOD ORDERABLES Final Resu lt [address] [address] * (ABNORMAL) CBC (08/22/2022 9:17 AM EDT) WBC 3.66(L) 4.00 - 11.00 K/uL [facility] RBC 4.29 3.90 - 5.69 M/uL [facility] HGB 14.4 12.4 - 17.3 g/dL [facility] HCT 41.6 37.0 - 51.0 % [facility] PLT 138(L) 140 - 430 K/uL [facility] MCV 97.0 78.0 - 97.0 fL [facility] MCH 33.6(H) 25.0 - 33.0 pg [facility] MCHC 34.6 32.0 - 36.0 g/dL [facility] RDW 12.4 11.0 - 15.0 % [facility] MPV 10.2 8.4 - 12.8 fl [facility] Blood 08/22/2022 9:17 AM EDT 08/22/2022 9:26 AM EDT Lyndsay Barron PA-C LAB BLOOD ORDERABLES Final Resu lt [address] [address] * Tissue transglutaminase IgA (08/22/2022 9:17 AM EDT) TTG IGA ANTIBODY 1.7 <4.0 (Negative) U/mL [facility] [address] Blood 08/22/2022 9:17 AM EDT 08/22/2022 9:26 AM EDT us Lyndsay Barron PA-C LAB BLOOD ORDERABLES Final Resu lt [facility] [address] [place] [address] documented in this encounter Visit Diagnoses Diagnosis Celiac disease- Primary Loose stools Abnormal feces Gastroesophageal reflux disease without esophagitis Esophageal reflux documented in this encounter Additional Health Concerns Assessment Noted Time PHQ-2 Depression Total Score: 0 11/12/19 22 8:21 AM EDT documented as of this encounter Care Teams [employer] Relationship Specialty Start Date End Date Mary Ann Marshall MD [address] [place] [address] PCP - General Internal Medicine 03/10/17 Mary Ann Marshall MD [address] [place] [address] Historical LMR Provider 12/31/16 Mary Ann Marshall MD [address] [place] [address] Insurance Assigned Provider 06/19/24 documented as of this encounter Additional Source Comments The information contained in this document represents components of the legal health record. It is not the complete legal health record.[facility]
--- OUTSIDE RECORDS SUMMARY | 2024-11-17 21:10 | XMS_ITS | Clinical Summary ---
Author Organization [facility] Address [address] [place] [address] Phone Care Team Providers Care Industrial Security Analyst Name Role Phone Montalvo, Mary Ann A MD Unavailable [phone] Montalvo, Mary Ann A MD Primary Care Provider [phone] Montalvo, Mary Ann A MD Unavailable [phone] Allergies Active Allergy Reactions Criticality Noted Date Comments Aspirin 11/12/2022 Gluten Protein 03/31/2017 Metoclopramide 03/31/2017 Metoclopramide Hcl 03/31/2017 Medications cholecalciferol , vitamin D3, 1,000 unit capsule Active pancrelipase, lipase-protease -amylase, (CREON) 24,000-76,000 -120,000 unit CpDR 10/07/2022 Active calcitriol (ROCALTROL) 0.5 MCG capsuleIndicati ons:Medication refill TAKE 1 CAPSULE BY MOUTH EVERY DAY 90 capsule 2 01/05/2023 Active famotidine (PEPCID) 40 MG tablet Take 40 mg by mouth daily. 07/14/2023 Active tamsulosin (FLOMAX) 0.4 mg CapIndications: Medication refill TAKE 1 CAPSULE BY MOUTH EVERY DAY 90 capsule 3 03/17/2024 Active cyanocobalamin (VITAMIN B-12) 500 mcg/spray Biola 500 mcg by Right Nare route. Active CALCIUM CARBONATE ORAL Take 1 tablet by mouth daily. 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 He had 1 episode of discomfort recently during activity but overall he has been able to exercise with no symptoms. For now, we will hold off on getting a stress test. If he continues to get chest discomfort with activity, we will repeat a nuclear stress test. Benign prostatic hyperplasia 04/27/2018 Osteonecrosis of left knee region 06/14/2016 Encounters Date Type Department Care Team Description 08/17/2024 1:38 PM EDT - 08/17/2024 11:59 PM EDT Hospital Encounter [facility] [address] [place] [address] Mary Ann Montalvo MD Discharge Disposition: Home or Self Care from Last 3 Months Immunizations Immunization Administration Dates Next Due COVID-19 (Pre-01/05) Pfizer Vaccine, Bivalent 12+ 08/01/2022 COVID-19 (Pre-01/05) Pfizer Vaccine, mRNA, PF 01/25/2021,07/07/2020,06/16/2020 INFLUENZA, SPLIT VIRUS, TRIV ALENT W/ PRESERVATIVE IM 03/27/2015,03/15/2013 Influenza High-Dose Quadriva lent Preservative Free IM 01/09/2023,12/05/2021,12/18/2020 Influenza Quadrivalent Prese rvative Free IM 01/14/2020,12/23/2018,12/16/2017,03/31 Influenza Quadrivalent w/ Pr eservative IM 02/17/2014 Influenza Trivalent Adjuvant ed Preservative free IM 01/05/2024 Pneumococcal conjugate PCV13 12/18/2020 Pneumococcal polysaccharide PPSV23 11/12/2022 RSV Vaccine (monovalent, adjuvanted) 12/14/2022 Tdap 03/31/2017 Zoster recombinant 08/30/2019,05/02/2019 Family History Medical History Relation Comments CV disease Father Hypertension Father Melanoma Father Diabetes mellitus Mother Melanoma Paternal Grandfather Relation Status Comments Father Mother Paternal Grandfather Social History Tobacco Use Types Packs/Day Years Used Date Smoking Tobacco: Never Smokeless Tobacco: Never Tobacco Cessation:Counseling Given: Not Answered Alcohol Use Standard Drinks/Week Comments No 0 [...] housing situation today? I have tiara sing 11/10/2022 How many times have you move [...] 11/11/2021 Digital Access Answer Date Recorded No 11/14/2024 No 11/14/2024 Reliable internet access at home? Not on file 11/14/2024 Device with a working camera? Not on file Intimate Partner Violence Answer Date R ecorded Are you denied basic needs s uch as food, clothing, or medical care? No 08/14/2024 In the past 12 months have y ou been in a relationship with a person who hurts, threatens, or tries to control you? No 08/14/2024 Are you denied basic needs s uch as food, clothing, or medical care? No 08/14/2024 In the past 12 months have y ou been in a relationship with a person who hurts, threatens, or tries to control you? No 08/14/2024 Sex and Gender Information Value Date Recorded Sex Assigned at Male 08/04/2023 2:25 AM EDT Legal Sex Male 9:54 PM EDT Gender Identity Male 08/04/2023 2:25 AM EDT Sexual Orientation Straight 08/04/2023 2: 25 AM EDT Last Filed Vital Signs Vital Sign Reading Time Taken Comments Blood Pressure 124/72 08/15/2024 10:39 AM EDT Pulse 71 08/15/2024 10:39 AM EDT Temperature 36.6 C (97.8 F) 10/19/2023 8:51 AM EDT Respiratory Rate 16 10/13/2023 1:26 PM EDT Oxygen Saturation 99% 08/15/2024 10:39 AM EDT Inhaled Oxygen Concentration - - Weight 72.6 kg (160 lb) 08/15/2024 10:39 AM EDT Height 179 cm (5' 10.47 ) 08/15/2024 10:39 AM ED T Body Mass Index 22.65 08/15/2024 10:39 AM EDT Plan of Treatment Upcoming Encounters Date Type Department Care Team (Late st Contact Info) Description 12/12/2024 10:30 AM EDT Office Visit [facility] [address] [place] [address] 3rd Floor, [address] [place] [address] Judi Kat, ELLIS [address] [address] 04/06/2025 2:45 PM EST Appointment [facility], [facility] Density - [address] [address] Anabella Chauhan MD [address] [place] [address], [address] [place] [address] Health Maintenance Due Date Last Done Comments COLOGUARD 12/01/2000 FOBT 12/01/2000 SIGMOIDOSCOPY 12/01/2000 VIRTUAL COLONOSCOPY 12/01/2000 FIT TEST 09/04/2023 09/03/2022 INFLUENZA VACCINE (#1) 2024 , 01/09/2023, 12/05/2021, Additional history exists DEPRESSION SCREENING 08/14/2025 08/14/2024 Adult Td,Tdap Booster 03/31/2027 03/31/2017 LIPID PANEL 12/09/2028 12/10/2023, 10/16, 07/10/2021, Additional history exists COLONOSCOPY 10/25/2031 10/24/2021, 04/23/2015 COLORECTAL CANCER SCREENING 10/25/2031 ZOSTER VACCINES Completed 08/30/2019, 05/02/2019 PNEUMOCOCCAL VACCINES (50+ years) Completed 11/12/2022, 12/18/2020 RSV VACCINE Completed 12/14/2022 COVID-19 VACCINE Completed 07/08/2024, , 01/19/2023, Additional history exists SMOKING STATUS SCREENING (Once After 26 Yrs) Completed 08/15/2024 HEPATITIS C SCREENING Completed 08/17/2024 HEPATITIS A VACCINES Aged Out No long er eligible based on patient's age to complete this topic HIB VACCINES Aged Out No longer eligi ble based on patient's age to complete this topic MENINGOCOCCAL VACCINES (ACWY) Aged Out No longer eligible based on patient's age to complete this topic MENINGOCOCCAL VACCINES (B) Aged Out N o longer eligible based on patient's age to complete this topic Medical Devices Not on file Procedures Procedure Name Priority Date/Time Associated Diagnosis Comments HEPATITIS C ANTIBODY, QUALITATIVE Routine 08/17/2024 1:38 PM EDT Need for hepatitis C screening test LIPID PANEL Routine 12/10/2023 8:42 AM EDT Other chest pain HC BLOOD OCCULT FECAL HGB DETER IA QUAL FECES 1-3 Routine 09/03/2022 5:01 PM EDT Celiac disease Loose stools Gastroesophageal reflux disease without esophagitis ENDOSCOPY, COLON 10/24/2021 7:25 AM EDT from Last 3 Months or Most Recently Relevant to Health Maintenance Results * Hepatitis C antibody, qualitative (08/17/2024 1:38 PM EDT) HCV NON-REACTIV E NON-REACTI VE [facility] Blood 08/17/2024 1:38 PM EDT 08/17/2024 1:41 PM EDT us Mary Ann Montalvo MD LAB BLOOD ORDERABLES Final Re sult Performing Organization Address City/[facility]/ZIP Co de Phone Number [address] [address] * (ABNORMAL) Lipid panel (12/10/2023 8:42 AM EDT) HDL 52 mg/dL [facility] Comment: Interpretation <40 mg/dL: Low HDL cholesterol (major risk factor for CHD) Greater than or equal to 60 mg/dL: High HDL cholesterol ( negative risk factor for CHD) HDL - cholesterol is affected by a number of factors, e.g. smoking, excerise, hormones, sex and age. CHOLESTEROL 155 0 - 240 mg/dL [facility] TRIGLYCERIDES 51 30 - 160 mg/dL [facility] LDL 93 50 - 129 mg/dL [facility] Comment: LDL levels in terms of risk for coronary heart disease: <100 mg/dL: Optimal 100-129 mg/dL: Near or above optimal 130-159 mg/dL: Borderline high 160-189 mg/dL: High >190 mg/dL: Very High CARDIAC RISK RATIO 3.0(L) 3.4 - 5.0 C [facility] Blood 12/10/2023 8:42 AM EDT 12/10/2023 8:53 AM EDT us Shayla Kendall PA-C LAB BLOOD ORDERABLES Fi nal Result Performing Organization Address City/[facility]/ZIP Co de Phone Number [address] [address] * Fecal immunochemical test x1 (FIT) (09/03/2022 5:01 PM EDT) Immuno Fecal Occult Negative Negative [facility] Stool (Stool) 09/03/2022 5:0 1 PM EDT 09/08/2022 5:10 PM EDT Lyndsay Barron PA-C BODY FLUIDS AND STOOLS ORDERABL ES Final Result [facility] [address] [place] [address] * ENDOSCOPY, COLON (10/24/2021 7:25 AM EDT) Narrative Transcriptions Ti Ordaz MD - 10/24/2021 7:25 AM EDT Patient Name: Vladimir Flores Attending MD:: TI ORDAZ MD Procedure Date: 10/24/2021 7:25 AM Date of : 1955 Age: 65 Admit Type: Outpatient Gender: Male Room: [place] [address] Referring MD: MARY ANN MONTALVO MD Exam Type: Colonoscopy Indications: Chronic diarrhea Medications: Monitored Anesthesia Care Procedure: Informed consent was obtained from the patientafter discussion of the indications, limitations, alternatives, benefits, and risks of the procedure. Risks specifically discussed include but are not limited to medication reactions, missed lesions, bleeding, perforation, or the need for emergent surgery. Throughout the procedure, the patient's blood pressure, pulse, end-tidal CO2, and oxygensaturations were monitored continuously. The Olympus adult variable colonoscope [id number] #5 was introduced through the anus and advanced to the terminal ileum. The colonoscopy was performedwithout difficulty. The patient tolerated the procedurewell. The quality of the bowel preparation was good. Anatomical landmarks were photographed. Complications: No immediate complications. Estimated blood loss:None. Findings: The perianal and digital rectal examinations were normal. The rectum, recto-sigmoid colon, sigmoid colon, descending colon, splenic flexure, transversecolon, hepatic flexure, ascending colon, cecum,appendiceal orifice, ileocecal valve, ileum, rectum (on retroflexion) and ascending colon (on retroflexion) appeared normal. Biopsies were taken with a cold forceps for histology. Impression: - The rectum, sigmoid colon, descending colon,splenic flexure, transverse colon, hepatic flexure,ascending colon, cecum, rectum (on retroflexion), ascending colon (on retroflexion), ileocecal valve, recto-sigmoid colon, terminal ileum and appendiceal orifice are normal. Biopsied. Recommendation: - Discharge patient to home. - Resume previous diet. - Continue present medications. - Await pathology results. - Repeat colonoscopy in 10 years [facility]. - I will send you pathology results by letter. Ifyou do not get results in 3 weeks telephone myoffice. TI ORDAZ MD 10/24/2021 7:58:53 AM This report has been signed electronically. Number of Addenda: 0 Note Initiated On: 10/24/2021 7:25 AM Procedure Code(s): --- Professional --- 59262, Colonoscopy, flexible; with biopsy, single or multiple --- Technical --- 84319, Colonoscopy, flexible; with biopsy, single or multiple Diagnosis Code(s): --- Professional --- K52.9, Noninfective gastroenteritis and colitis, unspecified --- Technical --- K52.9, Noninfective gastroenteritis and colitis, unspecified CPT copyright 2020 [employer]. All rights reserved. The codes documented in this report are preliminary and upon respiratory care instructor reviewmay be revised to meet current compliance requirements. Procedure Date: 10/24/2021 7:25:09 AM [address] [place] [address] us Mary Ann A Rolando CROCKETT GI PROCEDURE ORDERABLES Final Result from Last 3 Months or Most Recently Relevant to Health Maintenance Insurance [employer] MEDICARE SUPPLEMENT MEDICARE PART A & B [employer] EXTENSION MEDICARE SUPPLEMENT MEDICARE PART A & B [facility] MEDICARE SUPPLEMENT [facility] EXTENSION MEDICARE SUPPLEMENT MEDICARE PART A & B MEDICARE PART A & B [facility] EXTENSION MEDICARE SUPPLEMENT MEDICARE PART A & B [facility] EXTENSION MEDICARE SUPPLEMENT MEDICARE PART A & B Care Teams Industrial Security Analyst Relationship Specialty Start Date End Date Mary Ann Montalvo MD [address] [place] [phone] [email or web address] PCP - General Internal Medicine 03/10/17 Mary Ann Montalvo MD [address] [place] [phone] [email or web address] Historical LMR Provider 12/31/16 Mary Ann Montalvo MD [address] [place] [phone] [email or web address] Insurance Assigned Provider 06/19/24 Additional Source Comments The information contained in this document represents components of the legal health record. It is not the complete legal health record.[facility]
--- OUTSIDE RECORDS SUMMARY | 2024-11-17 21:10 | XMS_ITS | Encounter Summary ---
Author Organization [facility] Address [address] [place] [address] [place] [address] Phone Care Team Providers Care News Intern Name Role Phone [place], Mary Ann A MD Unavailable [phone] [place], Mary Ann A MD Primary Care Provider [phone] [place], Mary Ann A MD Unavailable Encounter Details Date Type Department Care Team (Late st Contact Info) Description 05/03/2021 Transcribe Orders [facility] [address] [place] [address] Dr Valle SHAE [address] Anabella Chauhan MD [address] [place] [address] [address] [place] [address] [email or web address] Other osteonecrosis, left femur (Primary Dx) Social History Tobacco Use Types [...] Description 12/12/2024 10:30 AM EDT Office Visit [facility] [address] [place] [address] 3rd Floor, [address] [place] [address] Judi Kat, ELLIS [address] [facility], [address] [place] [address] 04/06/2025 2:45 PM EST Appointment [facility], [facility] - [facility] [address] [place] [address] Anabella Chauhan MD [address] [place] [address], [address] [place] [address] Pending Results Name Type Priority Associated Diagnoses Date /Time 1-25-OH vitamin D Lab Routine Other osteonecrosis, left femur 05/03/2021 9:24 AM EST documented as of this encounter Results * Basic metabolic panel (05/03/2021 9:24 AM EST) SODIUM 144 133 - 146 mmol/L [facility] CHLORIDE 107 96 - 108 mmol/L [facility] POTASSIUM 4.2 3.3 - 5.1 mmol/L [facility] Comment:Specimen slightly he molyzed, result may be falsely elevated. CO2 25 21 - 35 mmol/L [facility] BUN 16 6 - 19 mg/dL [facility] CREATININE 0.90 0.5 - 1.5 mg/dL [facility] GLUCOSE 85 70 - 99 mg/dL [facility] CALCIUM 9.0 8.4 - 10.3 mg/dL [facility] EGFR 95 >59 mL/min/1.7 3m2 [facility] Comment:Estimated glomerular filtration rate calculated using the CKD-EPI refit equation. ANION GAP 16 10 - 20 mmol/L [facility] Blood 05/03/2021 9:24 AM EST 05/03/2021 9:32 AM EST Anabella Chauhan MD LAB BLOOD ORDERABLES Final R esult Performing Organization Address City/[facility]/ZIP Co de Phone Number [address] [address] * Parathyroid hormone (PTH) (05/03/2021 9:24 AM EST) PARATHYROID HORMONE 26 15 - 65 pg/mL [facility] Blood 05/03/2021 9:24 AM EST 05/03/2021 9:32 AM EST Anabella Chauhan MD LAB BLOOD ORDERABLES Final R esult Performing Organization Address City/[facility] Co de Phone Number [address] [address] * Calcium, 24 hour urine (05/03/2021 8:00 AM EST) URINE CALCIUM 8.6 mg/dL [facility] CALCIUM OUTPUT 146 100 - 300 mg/total output [facility] Urine (Urine) 05/03/2021 8:0 0 AM EST 05/03/2021 9:31 AM EST us Anabella Chauhan MD URINE ORDERABLES Final Resul t [facility] [address] [place] [address] documented in this encounter Visit Diagnoses Diagnosis Other osteonecrosis, left femur- Primary documented in this encounter Additional Health Concerns Infection Onset Date Last Indicated Resolved Time CoV-Risk Comment:Per Ambulatory Triage Form 2021 12/03/202112/14 1:22 AM EDT Assessment Noted Time PHQ-2 Depression Total Score: 0 11/07/19 3:20 PM EDT documented as of this encounter Care Teams News Intern Relationship Specialty Start Date End Date Mary Ann [place] MD [address] [place] [phone] PCP - General Internal Medicine 03/10/17 Mary Ann [place] MD [address] [place] [phone] [email or web address] Historical LMR Provider 12/31/16 Mary Ann [place] MD [address] [place] [phone] Insurance Assigned Provider 06/19/24 documented as of this encounter Additional Source Comments The information contained in this document represents components of the legal health record. It is not the complete legal health record.[facility]
--- OUTSIDE RECORDS SUMMARY | 2024-11-17 21:10 | XMS_ITS | Encounter Summary ---
Author Organization [facility], Address [address] [place] [address] Phone Care Team Providers Care Buckle Inspector Name Role Phone Mary Ann [place] MD Primary Care Provider [phone] Encounter Details Date Type Department Care Team (Late st Contact Info) Description 09/24/2023 Documentation Only [facility] [address] [place] [address] Patricia Forbes [address] [place] [phone] Social History Tobacco Use Types Packs/Day [...] [facility] [place] [address] Neel [place] [address] [place] [phone] Ermias Shine MD [address] [place] [address] [place] [address] documented as of this encounter Visit Diagnoses Not on filedocumented in this encounter Care Teams Buckle Inspector Relationship Specialty Start Date End Date Mary Ann [place] MD [address] [place] [address], [address] [place] [address] PCP - General Internal Medicine 08/26/23 documented as of this encounter
== END ==
LOC: HO.SL 19:30
PROVIDERS: PCP Internal Medicine; Visit Provider Physician Assistant Medical
DX: G47.33 Obstructive sleep apnea (adult) (pediatric) (principal); G47.19 Other hypersomnia
CPT/HCPCS: 95810

== ENCOUNTER → 2024-11-17 21:10 | Outpatient (BNV) | payer MEDICARE, OTHER, SELFPAY | PROVIDERS: PCP Internal Medicine; Visit Provider Psychiatry & Neurology Neurology | DX: G47.33 Obstructive sleep apnea (adult) (pediatric) (principal) | CPT/HCPCS: 95810 ==

== ENCOUNTER 2025-01-31 13:35 | Outpatient (AMB) | payer MEDICARE, OTHER, SELFPAY ==
--- NOTE | 2025-01-31 13:47 | MHC.OFFVIS ---
Vital Signs 01/31/25 13:48 Height 6 ft Weight 156 lb BMI 21.2 BP 106/68 Blood Pressure Location Lt brachial Position Sitting Pulse 70 Pulse Source Pulse Oximeter Pulse Oximetry (%) 96 Oxygen Delivery Method Room Air Intake Visit Reasons: 3mnth fu Intake Note: Patient presents follow up LATONYA/Abn Movements. PSG/Compliance in chart(AHI- 9, REM AHI-21, KRISTIAN-91%. APAP 5-20cm(89/90days, >=4hrs-99%,Average usage-7hr 7min, Med Pressure-7.4, Med Leaks-0.0, AHI-0.7). APOE refused after talking to PCP. Has records for past testing. Questions about RLS. Pressure on CPAP. Accompanied by: Spouse Allergies metoclopramide (From Reglan) Allergy (Unknown, Verified 01/31/25 13:51) Unknown HPI Comments Details: 69 y/o male comes for evaluation of abnormal involuntary movements in his tongue and mouth and review of HST. Annemarie his helps with history today. 04/2024 EEG reviewed with patient no evidence of epileptic disorder. HST c/w mild latonya AHI is 9 and oxygen nadirs to 91%, will start him on cpap therapy at [id number]. He recently received a chin strap for his cpap mask, however this did not seem to help with leaks. He notices when he tapes the mask to his face the hissing sound and leaks improve. The pressures are okay, however he still will have dry mouth at 81 degrees and notices condensation collecting in the hose, we discussed his unruly machine has been recalled by the laundry aid and he has had the same machine for over 10 years now. He is compliant with use and feels much more rested with use, and feels better in the mornings. He is more alert, productive and his driving has improved. He still has LLQ pain due to bloating and h/o celiac disease being followed by GI as he is on Creon- Zhgwso-Wpnnszul-Uqrgwpx TID , and will f/u with GI in Mar 2024. Oral tics, moderate now per , when he is concentrating on a task, he licks his lips and makes puffing air noises with his mouth. He can suppress it when noticeable. He occasionally has jerky movements usually when he falls asleep, for many years. Memory is stable, will forget names and why he entered into a room. He denies word recall difficulties, difficulty with executive function or orientation.He denies restless leg symptoms of numbness, tingling, burning in his feet bilaterally. He denies freezing of gait, tremors, shuffling of feet and or foot drop.Denies upper extremity weakness, difficulty holding coffee cup or utensils for food, handwriting is stable. He is independent in all his ADLs and lives an active lifestyle, walks 2 miles daily. [facility] Medical History Abnormal involuntary movements Hx of migraines Celiac disease Kidney stones GERD (gastroesophageal reflux disease) Heartburn Surgical History H/O knee surgery Family History Father Cancer Mother Type 2 diabetes mellitus Social History Alcohol intake: never Patient Tobacco Use Status: Never used Tobacco Physical Exam Vital Signs: Last Vital Signs Pulse 70 01/31/25 13:48 BP 106/68 01/31/25 13:48 Pulse Ox 96 01/31/25 13:48 Oxygen Delivery Method Room Air 01/31/25 13:48 BMI result Body Mass Index 21.2 Const General: cooperative, comfortable and no acute distress Nutritional Appearance: average body habitus Orientation/consciousness: patient oriented x3 Eyes Pupils: Equal, round and reactive pupils present Neck Neck: Yes full ROM Resp Effort & Inspection: normal respiratory effort and able to speak in complete sentences Neuro Other: no abnormal movements noticed today, slight oral tic, around the lips. General: patient oriented x3 and moves all extremities Cranial nerves: Yes Facial sensation intact/muscles of mastication intact, Yes Equal, round and reactive pupils present, Yes Normal accommodation reflex present, Yes Normal facial strength present, Yes Midline tongue present, Yes Ability to bilaterally rotate head present and Yes Ability to bilaterally elevate shoulders present Cognition (Neuro): normal cognition Gait exam (Neuro): Normal gait present Motor exam (neuro): 5/5 motor strength present throughout and Normal motor muscle tone present throughout Psych Appearance: grossly normal Mental Status: mental status grossly normal Thought process: Normal thought process present Thought content: Normal thought content present Results Reviewed Results Reviewed: 04/2024 EEG reviewed with patient no evidence of epileptic disorder. HST c/w mild latonya AHI is 9 and oxygen nadirs to 91%, will start him on cpap therapy at [id number]. Labs reviewed from [facility]. Assessment & Plan Assessment & Plan (1) Excessive daytime sleepiness: Comment: takes naps frequently Code(s): G47.19 - Other hypersomnia Category: Medical (2) Cognitive attention deficit: Comment: H/O ADHD Code(s): R41.840 - Attention and concentration deficit Category: Medical (3) Abnormal involuntary movements: Comment: likely motor TICS/ Tardive? Dyskinesia? and h/o reglan use Code(s): R25.9 - Unspecified abnormal involuntary movements Category: Medical (4) LATONYA (obstructive sleep apnea): Code(s): G47.33 - Obstructive sleep apnea (adult) (pediatric) Category: Medical Plan Mild LATONYA AHI c/w 9/hr and oxygen nadirs to 90%, start cpap [id number]. Continue cpap and for >4hours a night. His Unruly machine was recalled, will send him for a new cpap machine and mask fitting n30i as his mask leaks and hisses. Abnormal involuntary movements are mild and intermittent. EEG results reviewed with pt. No evidence of epileptic disorder. H/O Reglan use, Is on lipase for pancreatic issues, will f/u with GI in Mar 2024, LLQ pain and bloating. PSG reviewed with pt intermittent and insufficient sleep due to inability to induce sleep in lab. Excessive daytime sleepiness will review labs from [facility] and r/o insufficiencies. Pt. Education FH Dementia will test him for the apoE4 gene with [facility], if pt is amenable. 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 F/u in 3 months for compliance. Patient Instructions: Sleep Hygiene provided: set a scheduled bedtime and wake time to help regulate the circadian rhythm and balance the release of pituitary hormones. Sleep in a dark room, temperatures below 68 degrees, and no devices n bed. Limit caffeinated products 6 hours prior to bed, and limit fluids 2-4 hours prior to bed. Gentle night yoga, diffusing essential oils, and playing soft music can be relaxing. Coding Level of Care Code Est Pt Level 4 (31421) Diagnoses Excessive daytime sleepiness G47.19 Cognitive attention deficit R41.840 Abnormal involuntary movements R25.9 LATONYA (obstructive sleep apnea) G47.33
[2025-01-31 13:48] VITALS: BP 106/68; PULSE 70; O2SAT 96; BMI 21.2
--- OUTSIDE RECORDS SUMMARY | 2025-02-01 07:06 | XMS_ITS | Data Portability ---
Author Organization [place] [facility], Allergy Address [address] [place] [id number] Care Team Providers Care School Community Relations Coordinator Name Role Phone MONTALVOCARMEN Harry Primary Care Provider Assessment Encounter Date Assessment [...] [place], modified barium swallow study [address] [place] [address] Diagnostic Imaging, [address] [place], [address], 16:49:09 Medication Orders None recorded. Patient TargetsNo targets recorded. Patient InstructionsNo instructions recorded. Reason for Referral None Reported. Problems Name Problem SNOMED Code Status Onset Date Resolution Date Notes Provider Name and Address Organization Details Recorded Time Gastroeso phageal reflux disease without esophagit is 414891059 Active 2017 Gastro-eso phageal reflux disease without esophagiti s; Note: Date Diagnosed: 12/23/2017 9:56 AM (K21.9) Not Available [facility] 4 03:33:08 Dysphonia 34900323 Active 2017 Other voice and resonance disorders; Note: Date Diagnosed: 12/23/2017 9:56 AM (R49.8) Not Available [facility] 4 03:33:08 Finding of resonance of voice [id number] Active 2017 Other voice and resonance disorders; Note: Date Diagnosed: 12/23/2017 9:56 AM (R49.8) Not Available [facility] 4 03:33:08 Dysphagia 50743350 Active 2023 Alexandria mcgraw [place] [facility] 4 12:19:47 Problem Notes None recorded. Procedures Surgical History Date Name Laterality Status Provider Name and Address Organization Details Recorded Time 09/24/19 24 Fiberoptic Laryngoscopy (Comprehensive) completed Alexandria Hamlin [place] - [facility] 09/24/2023 12:19:31 Imaging Results None recorded. Procedure Notes None recorded. Medical Equipment None Reported. Allergies Allergen ID Allergen Name Allergen Category Reaction Reaction Severity Criticality Documentation Date Start Date Code Code System Note Provider Name and Address Organization Details Recorded Time 156721 aspirin medicatio n Not available Not available Not available 09/24/2023 1191 RxNorm Judi SHAE [facility] 4 11:05:42 980202 Reglan medicatio n Not available Not available Not available 09/24/2023 9230 RxNorm Judi Suraj mcgraw [place] [facility] 4 11:05:50 Medications Name Sig Start [...] chewable tablet 2017 active Medicati on ID: [id number] B rand Name: Calcium 500 Send Method: [...] Updated DateTime 09/24/2023 182.88 cm 21 kg/m2 71321.82 g Judi Harry [facility] 09/24/2023 11:05:33 Social History None recorded. Functional Status None recorded. Mental Status None recorded. Family History Nothing Reported. Medical History No medical history recorded. Past Encounters Encounter ID Performer Location Encounter Start Date Encounter Closed Date Diagnosis/Indication Diagnosis SNOMED-CT Code Diagnosis ICD10 Code Diagnosis IMO Codes Diagnosis Note [id number] ALEXANDRIA HAMLIN PA-C [facility] [place] [phone] 09/24/2023 10:48:51 09/25/2023 16:49:09 Dysphonia 50489389 R49.8 Gastroesop hageal reflux disease without esophagitis 068774741 K21.9 Dysphagia 54940398 R13.1 0 Health Concerns Section Related Observation LastModified by Organization Detai ls LastModified Time None Recorded Concern Status LastModified by Organization Details LastModified Time None Recorded Advance Directives Directive None Recorded Payers Insurance Date Sequence Insurance Name Policy Number Policy Ferreira Covered Member ID Ferreira Member ID Guarantor Name 09/23/2023 2 [facility] [employer] (INDEMNITY) [id number] Vladimir Flores [id number] Vladimir Flores 09/26/2023 1 [place]ICARE [place] [employer] Vladimir Flores III [id number] Vladimir Flores Notes Date Note Type Note Provider Name and Address Organization Details Recorded Time 09/24/2023 text/html ROS as noted in the HPI 67 year old male with a history [...] another modified barium swallow. MARYLU CHOI MD [address] [place] [address], [place], [phone], [facility] - [facility] 09/25/2023 12:48:46
== END 2025-01-31 14:39 | disposition home or self-care (01) ==
LOC: HO.HSMS 13:36
PROVIDERS: PCP Internal Medicine; Visit Provider Physician Assistant Medical
DX: G47.19 Other hypersomnia (principal); R41.840 Attention and concentration deficit; R25.9 Unspecified abnormal involuntary movements; G47.33 Obstructive sleep apnea (adult) (pediatric)
CPT/HCPCS: 99214

== ENCOUNTER → 2025-01-31 13:35 | Outpatient (BNVA) | payer MEDICARE, OTHER, SELFPAY | PROVIDERS: PCP Internal Medicine; Visit Provider Physician Assistant Medical | DX: G47.33 Obstructive sleep apnea (adult) (pediatric) (principal); G47.19 Other hypersomnia; R25.9 Unspecified abnormal involuntary movements; R41.840 Attention and concentration deficit | CPT/HCPCS: 99212 ==